=== PATIENT | female | born 1995 | race Caucasian/White ===

== ENCOUNTER 2018-07-29 22:08 | Emergency (ER) | payer MEDICAID, SELFPAY ==
[2018-07-29 22:09] VITALS: BP 148/93; PULSE 108; RESP 18; TEMP 36.7; O2SAT 98; BMI 32.6
--- NOTE | 2018-07-29 22:25 | ED.VISSUMM ---
- ER Visit Summary Date of Service: 07/29/18 Chief Complaint: Sore throat History of Present Illness: The patient is a 23 F with a sore throat for 2 weeks. It has been getting worse. Patient also reports a cough and decreased sleep because of her symptoms. No shortness of breath. No fevers. No sputum. No trouble moving her neck. Physical Examination: Afebrile and vital signs are unremarkable. Patient has a hoarse voice. HEENT exam unremarkable except for some bilateral tonsillar exudates. No masses. Good range of motion of her neck. Airway intact. Lungs clear. Heart regular. Test Results: None indicated Emergency Department Course and Treatment: Given the duration of her symptoms, she was treated with a course of Pen-Vee K, prednisone, naproxen. Follow-up with primary care or return for new or worsening issues. Treatment Plan: As above Disposition: Discharge Impression: 1. Pharyngitis This note was generated with [employer] dictation software. It may contain incorrect words, spelling, and punctuation that were not noted in review of the chart prior to signing ED Disposition - Plan for ED Patient: Referrals: Care Physician,No Primary [Primary Care Provider] -
--- NOTE | 2018-07-29 22:27 | ED.DEP ---
ED Disposition - Plan for ED Patient: Instructions: ED Pharyngitis Viral Prescriptions: Prednisone 10 mg PO UD #33 tab Naproxen [Naprosyn] 500 mg PO BID #14 tab Penicillin V Potassium 500 mg PO BID #20 tab Referrals: Care Physician,No Primary [Primary Care Provider] -
[2018-07-29] MEDS: Naproxen 500 MG Tablet PO (22:39)
[2018-07-29] MEDS: predniSONE 20 MG Tablet 60 MG PO (22:39)
[2018-07-29] MEDS: Penicillin Vk 250 MG Tablet 500 MG PO (22:39)
== END 2018-07-29 22:41 | disposition home or self-care (01) ==
PROVIDERS: Emergency Provider Emergency Medicine
DX: J02.9 Acute pharyngitis, unspecified (principal); G40.909 Epilepsy, unspecified, not intractable, without status epilepticus; R05 Cough; Z72.0 Tobacco use; Z79.899 Other long term (current) drug therapy
CPT/HCPCS: 99283

== ENCOUNTER 2018-08-19 22:56 | Emergency (ER) | payer MEDICAID, SELFPAY ==
[2018-08-19 22:56] VITALS: BP 146/93; PULSE 96; RESP 17; TEMP 36.2; O2SAT 96; BMI 33.6
--- NOTE | 2018-08-19 23:32 | ED.DCSUM_ITS ---
- ER Visit Summary Date of Service: 08/19/18 Chief Complaint: Dental pain History of Present Illness: The patient is a 23 F with dental pain for days after a filling fell out. The pain is in her right maxillary region. No other issues or complaints. She is planning to follow-up with dental this week. Physical Examination: Afebrile and vital signs unremarkable. Patient has dental caries with possibly a missing dental filling in her right maxilla. No abscess. Gums normal. Airway normal. HEENT exam otherwise normal. Neck unremarkable. Skin normal. Test Results: None performed Emergency Department Course and Treatment: Patient received Haines and Pen-Vee K here. She was treated with naproxen and Pen-Vee K at home. Follow-up with dental. Treatment Plan: As above Disposition: Discharge Impression: 1. Dental pain This note was generated with [employer] dictation software. It may contain incorrect words, spelling, and punctuation that were not noted in review of the chart prior to signing ED Disposition - Plan for ED Patient: Referrals: Care Physician,No Primary [Primary Care Provider] -
--- NOTE | 2018-08-19 23:32 | ED.DEP ---
ED Disposition - Plan for ED Patient: Instructions: ED Tooth Pain Prescriptions: Naproxen [Naprosyn] 500 mg PO BID #14 tab Penicillin V Potassium 500 mg PO 4X/DAY #40 tab
[2018-08-19] MEDS: Penicillin Vk 250 MG Tablet 500 MG PO (23:45)
[2018-08-19] MEDS: HYDROcodone Bitartrate/Apap 5/325 Tablet PO (23:45)
== END 2018-08-19 23:47 | disposition home or self-care (01) ==
LOC: ED 23:40
PROVIDERS: Emergency Provider Emergency Medicine
DX: K08.89 Other specified disorders of teeth and supporting structures (principal); K02.9 Dental caries, unspecified; G40.909 Epilepsy, unspecified, not intractable, without status epilepticus; Z79.899 Other long term (current) drug therapy
CPT/HCPCS: 99284

== ENCOUNTER 2018-10-11 15:32 | Emergency (ER) | payer MEDICAID, SELFPAY ==
[2018-10-11 15:36] VITALS: BP 119/77; PULSE 98; RESP 17; TEMP 36.9; O2SAT 98; BMI 31.4
--- NOTE | 2018-10-11 16:17 | ED.VISSUMM ---
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 such as cysts STD or abnormal bleeding, she is otherwise been in good health Physical Examination: [] Vital signs are within normal range General, no distress resting comfortably HEENT is generally unremarkable The neck is supple no adenopathy Cardiovascular, regular rate and rhythm Lungs, clear bilateral Abdomen, soft nontender, she deferred pelvic exam Extremities, no clubbing cyanosis or edema Neurologic, awake alert answering questions appropriately moving all 4 extremities Test Results: [] Emergency Department Course and Treatment: [] She is in no distress the bleeding is intermittent spotting at this time differentials extensive screening labs were obtained Treatment Plan: [] Patient screening labs hemoglobin, hCG are all negative unremarkable see those reports, discussed all the above with her she is comfortable discharge home she will follow-up with her disposal plant operator that delivered her child if she can identify that person she is referred to Leona OBgylluvia on-call, and return for change in symptoms she is comp with this plan Disposition: [] Impression: [] Vaginal bleeding etiology unclear. This note was generated with [employer] dictation software. It may contain incorrect words, spelling, and punctuation that were not noted in review of the chart prior to signing ED Disposition - Plan for ED Patient: Referrals: Antonio Colindres MD [Primary Care Provider] -
[2018-10-11 17:03] LABS: Absolute Lymphocyte Count 2.34 X10^3/ul (0.83-4.51); Absolute Neutrophil Count 3.4 X10^3/uL (2.0-7.7); Basophil# 0.02 X10^3/uL; Basophil% 0.3 % (0-1); Eosinophil# 0.13 X10^3/uL; Eosinophils% 2.1 % (0-5); Hemoglobin 13.1 g/dl (12.0-15.0); Lymphocyte # 2.34 X10^3/ul (4.0); Lymphocyte % 37.8 % (19-41); Mean Corp Hgb Conc 33.6 g/gl (32-36); Mean Corpuscular Hgb 30.6 pg (27.0-32.0); Mean Corpuscular Volume 91.1 fL (81-99); Mean Platelet Vol. 12.1 fl (6.2-12.0); Monocyte# 0.32 X10^3/uL; Monocyte% 5.2 % (0-10); Neutrophil # 3.37 X10^3/uL (2.7-7.7); Neutrophil % 54.4 % (47-70); POSITIVE COUNT NO; POSITIVE DIFFERENTIAL NO; POSITIVE MORPHOLOGY NO; Platelet Count 197 K/mm3 (150-450); RBC Distribution Width CV 13.7 % (11.6-14.6); RBC Distribution Width SD 45.9 fl (35.1-43.9); Red Blood Count 4.28 M/mm3 (4.2-5.4); White Blood Count 6.2 K/mm3 (4.4-11.0)
[2018-10-11 17:53] LABS: Internal QC Validated? YES +Cl - CLEAR BKGD; Pregnancy, Serum, hCG Quali. NEGATIVE Negative
--- NOTE | 2018-10-11 18:15 | ED.DEP ---
ED Disposition - Plan for ED Patient: Instructions: ED Bleed Irregular Vaginal Referrals: Antonio Colindres MD [Primary Care Provider] - Son Trent MD [STAFF PHYSICIAN] -
[2018-10-11 19:27] VITALS: PULSE 98; RESP 18; O2SAT 98
== END 2018-10-11 19:28 | disposition home or self-care (01) ==
LOC: ED 16:30
PROVIDERS: Emergency Provider Emergency Medicine; Family Provider Family Medicine; PCP Family Medicine
DX: N93.9 Abnormal uterine and vaginal bleeding, unspecified (principal); Z79.899 Other long term (current) drug therapy
CPT/HCPCS: 84703; 85025; 86900; 86901; 99283; A4216

== ENCOUNTER 2018-10-30 18:54 | Emergency (ER) | payer MEDICAID, SELFPAY ==
[2018-10-30 18:56] VITALS: BP 122/83; PULSE 110; RESP 16; TEMP 36.7; O2SAT 98; BMI 31.0
--- NOTE | 2018-10-30 19:02 | ED.RN ---
pt fatigued but oriented upon ed arrival. reports missed one dose medication yesterday, none today. no recent changes in medications, denies recent illness or sx. denies changes in sleep or less than normal. s/o estimating times of seizure to be about 5 minutes.
--- NOTE | 2018-10-30 19:08 | CT_ITS ---
STUDY: CT BRAIN WITHOUT CONTRAST REASON FOR EXAM: Female, 23 years old. Headache 5 minutes after seizure with associated fall. RADIATION DOSAGE (If Supplied By Facility): CTDIvol = ( 44.99 ) mGy, DLP = ( 812.98 ) mGycm TECHNIQUE: Transaxial CT imaging of the brain was performed without administration of intravenous contrast material. Multiplanar reformations are submitted for interpretation. Individualized dose optimization techniques were used for this CT. COMPARISON: CT of the head dated September 24, 2010. FINDINGS: Normal soft tissue structures. Normal calvarium. Normal size ventricles and extra-axial spaces for the patient's age. Normal white matter tracts of the cerebral hemispheres. Normal basal ganglia and thalami. Normal brainstem. Normal cerebellum. There is no intracranial hemorrhage. There are no findings of an acute ischemic infarction. Normal visualized paranasal sinuses. CT/Brain/Head without Contrast IMPRESSION: No CT evidence of acute intracranial hemorrhage. Electronically Signed: Nina Simpson MD at 19:54 EDT , Service support ,
--- NOTE | 2018-10-30 19:39 | ED.VISSUMM ---
- ER Visit Summary Date of Service: 10/30/18 Chief Complaint: Seizure History of Present Illness: The patient is a 23 F with a history of seizure. She had a seizure episode prior to arrival. Patient fell forward and had full body shaking. She was helped to the ground and did not sustain any injuries. This lasted about 5 minutes. She was confused afterwards upon EMS arrival. Patient has not had any treatment since the seizure. She said she is compliant with her medications today although she did miss a dose yesterday. Complains of a headache but denies any other symptoms. Physical Examination: Afebrile and vital signs unremarkable except for heart rate of 110. Patient is alert and oriented. No acute distress. Head and neck atraumatic. Heart tachycardic but regular. Lungs clear. Abdomen soft. Moves all extremities. Cranial nerves grossly intact. Test Results: Labs and imaging pending. Emergency Department Course and Treatment: Patient had seizure precautions and was monitored. Because of her headache and fall, I did obtain a CT. Results are pending. I also checked a Depakote level and some basic labs while we observe her. Patient said that she did not want blood work. She wants to leave. She has a follow-up appointment established already and has some personal obligations tonight. I advised her that she may leave, but she has not been completely evaluated. She voiced understanding. I believe she is capable of making this decision. She was advised to return if she has second thoughts or any other issues. Treatment Plan: As above Disposition: AMA Impression: 1. Seizure This note was generated with [employer] dictation software. It may contain incorrect words, spelling, and punctuation that were not noted in review of the chart prior to signing ED Disposition - Plan for ED Patient: Referrals: Antonio Colindres MD [Primary Care Provider] -
--- NOTE | 2018-10-30 19:41 | ED.DEP ---
ED Disposition - Plan for ED Patient: Instructions: ED Seizure Recurrent Referrals: Antonio Colindres MD [Primary Care Provider] -
--- NOTE | 2018-10-30 19:47 | ED.RN ---
PATIENT REFUSED LAB WORK TO BE DONE. PATIENT STATES I'M GETTING LAB WORK DONE TOMORROW AND HAVE AN APPOINTMENT NEXT WEEK WITH NEUROLOGIST. I NEED TO LEAVE, MY RIDE IS HERE. DR. REDDY NOTIFIED.
[2018-10-30 19:50] VITALS: BP 121/81; PULSE 104; RESP 18; O2SAT 96
== END 2018-10-30 19:51 | disposition left against medical advice (07) ==
PROVIDERS: Emergency Provider Emergency Medicine; Family Provider Family Medicine; PCP Family Medicine
DX: G40.909 Epilepsy, unspecified, not intractable, without status epilepticus (principal); Z72.0 Tobacco use; Z79.899 Other long term (current) drug therapy
CPT/HCPCS: 70450; 99285; A4216

== ENCOUNTER 2018-11-18 13:08 | Emergency (ER) | payer MEDICAID, SELFPAY ==
[2018-11-18 13:09] VITALS: BP 121/99; PULSE 111; RESP 16; TEMP 36.8; O2SAT 97; BMI 33.1
--- NOTE | 2018-11-18 13:14 | ED.RN ---
PT DEPAKOTE WAS FILLED 10/29/18. TAKES 3 A DAY. SHOULD HAVE APPX 30 PILLS LEFT IN BOTTLE HAS 37. PROBABLE MISSED DOSES. ZONEGRAN FILLED 10/30/18. TAKES 2 DAY. SHOULD HAVE AXX 20 PILLS REMAINING. HAS 33 LEFT INI BOTTLE. PROBABLE MISSED DOSES. PT STATES SHE GETS MEDICINE FILLED USUALLY WITH ABOUT ONE DAY LEFT IN PREVIOUS BOTTLE.
--- NOTE | 2018-11-18 13:59 | ED.RN ---
registration in to see pt. pt not in rom earched unit. not present. med bottles and belongings gone as well. left prior to dc instructions.
--- NOTE | 2018-11-18 13:59 | ED.VIS.GEN ---
History of Present Illness Chief Complaint: Seizure Informant: Patient Onset: Today Context: Sudden Onset Timing: Intermittent Quality: Generalized seizure Location: home Current Severity: Mild Maximum Severity: Moderate Worsened by: Noncompliance with medication Relieved by: Nothing Associated Symptoms: Headache Narrative: Patient is a 23-year-old woman with known history of seizures. She presents after generalized tonic-clonic seizure. She was brought to the emergency room by squad. She states she is compliant with medication. Nurse counted her medicines and she has 13 to many pills and one vial and 7 and another. Patient became defensive. 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 Past Medical History - Allergies and Home Meds Allergies/Adverse Reactions: Allergies No Known Allergies Allergy (Verified 10/30/18 18:56) Primary Care Physician: Antonio Colindres MD [Primary Care Provider] - Prior records reviewed: Yes Lives: With Family Smoking Status: Current every day smoker Drugs: None Review of Systems General: Denies: Chills, Fever, Sweats Eyes: Denies: Visual changes - bilaterally, Blurred Vision - bilaterally, Diplopia ENT: Denies: Bilateral ear pain, Rhinorrhea, Sore throat Cardiovascular: Denies: Chest pain, Palpitations Respiratory: Denies: Dyspnea, Cough, Dyspnea on exertion Gastrointestinal: Denies: Abdominal pain, Nausea, Vomiting, Diarrhea, Melena, Hematochezia Genitourinary: Denies: Dysuria, Hematuria, Frequency Musculoskeletal: Denies: Back pain, Extremity Pain Skin: Denies: Rash, Wounds Neurological: Reports: Headache. Denies: Weakness, Parasthesia, Numbness, -, - Psych: Reports: Depression Physical Exam Vital Signs/Narrative: Vital Signs Temp Pulse Resp BP Pulse Ox 11/18/18 13:09 98.2 F 111 H 16 121/99 H 97 Inital Vital Signs reviewed: Yes General: Well nourished, Well developed, No Acute Distress Head: Normocephalic, Atraumatic Eyes: Perrl, EOMI ENT: Moist mucous membranes, No rhinorrhea, TM's clear Neck: Supple, Nontender Cardiovascular: Regular rate, Regular rhythm, No murmurs, Normal S1, Normal S2 Respiratory: No distress, CTA bilaterally, Chest nontender Abdomen: Soft, Nontender, Nondistended, Normal bowel sounds Back: Nontender, Normal Inspection Extremities: Nontender, No edema Skin: Normal color, No rash, No Trauma. Negative for: Cyanosis, Diaphoresis, Jaundice Neurological: Alert, Oriented x3, Cranial nerves II-XII grossly intact, Normal Strength, Normal Sensation, Normal DTR, Normal Gait Psychological: Normal affect, Normal Mood Diagnostic/Tx/Re-eval No tests were obtained - Medical Decision Making Patient presents with seizure. Based on pill counts she is noncompliant with the medication. Plan is to observe. I was informed at 1400 that patient left without her discharge paperwork. ED Disposition - Plan for ED Patient: Disposition: Home or Assisted Living Diagnosis: Tonic-clonic generalized seizure Instructions: ED Seizure Recurrent Referrals: Antonio Colindres MD [Primary Care Provider] -
== END 2018-11-18 13:59 | disposition home or self-care (01) ==
LOC: ED 13:55
PROVIDERS: Emergency Provider Emergency Medicine; Family Provider Family Medicine; PCP Family Medicine
DX: G40.409 Other generalized epilepsy and epileptic syndromes, not intractable, without status epilepticus (principal); Z91.14 Patient's other noncompliance with medication regimen; F32.9 Major depressive disorder, single episode, unspecified; F17.200 Nicotine dependence, unspecified, uncomplicated; Z79.899 Other long term (current) drug therapy
CPT/HCPCS: 99284

== ENCOUNTER 2019-03-06 12:12 | Emergency (ER) | payer MEDICAID, SELFPAY ==
[2019-03-06 12:13] VITALS: BP 156/91; PULSE 120; RESP 18; TEMP 37.2; O2SAT 100; BMI 34.7
[2019-03-06 12:16] VITALS: BP 156/91; PULSE 123
[2019-03-06] MEDS: 0.9% Normal Saline 1,000 ML 150 ML IV (12:49)
[2019-03-06] MEDS: LORazepam 2 MG/ML Syringe 1 MG IV (12:50)
[2019-03-06 12:53] LABS: Absolute Lymphocyte Count 2.52 X10^3/uL (0.83-4.51); Absolute Neutrophil Count 7.6 X10^3/uL (2.0-7.7); Basophil# 0.04 X10^3/uL; Basophil% 0.4 % (0-1); Eosinophils% 0.9 % (0-5); Hematocrit 42.5 % (37-47); Hemoglobin 13.9 g/dL (12.0-15.0); Lymphocyte # 2.52 X10^3/ul (4.0); Lymphocyte % 22.2 % (19-41); Mean Corp Hgb Conc 32.7 g/dL (32-36); Mean Corpuscular Hgb 31.2 pg (27.0-32.0); Mean Corpuscular Volume 95.5 fL (81-99); Mean Platelet Vol. 11.6 fl (6.2-12.0); Monocyte# 0.92 X10^3/uL; Monocyte% 8.1 % (0-10); NRBC Flagged by Analyzer 0 % (0-5); Neutrophil # 7.63 X10^3/uL (2.7-7.7); Neutrophil % 67.3 % (47-70); Platelet Count 228 K/mm3 (150-450); RBC Distribution Width CV 13.6 % (11.6-14.6); RBC Distribution Width SD 47.8 fl (35.1-43.9); Red Blood Count 4.45 M/mm3 (4.2-5.4); White Blood Count 11.3 K/mm3 (4.4-11.0)
[2019-03-06 13:04] LABS: Anion Gap 10 (5-15); BUN 9 mg/dL (7-18); BUN/Creat Ratio 12.8 RATIO (10-20); Calcium,Total 8.5 mg/dL (8.5-10.1); Chloride 108 mmol/L (98-107); EST Glomerular Filtration Rate 107 mL/min (>60); Est Glom Filt Rate - Afr Amer 130 mL/min (>60); Estimated Creatinine Clearance 123.93 ml/min; Glucose 75 mg/dL (74-106); Potassium 3.5 mmol/L (3.5-5.1); Sodium Level 141 mmol/L (136-145)
[2019-03-06 13:15] LABS: Internal QC Validated? YES +Cl - CLEAR BKGD; Pregnancy, Serum, hCG Quali. NEGATIVE Negative
[2019-03-06 13:21] LABS: Valproic Acid (Depakene) Level 84 ug/mL (50-100)
[2019-03-06 14:10] LABS: Bacteria 0 SEEN /hpf (None Seen); Mucous, Urine 0 SEEN /hpf (<or=2+); Red Blood Cells-Urine 0 SEEN /hpf (0-5); White Blood Cells 0 SEEN /hpf (0-5)
[2019-03-06 14:13] LABS: Color, Urine Yellow (Yellow); Glucose, Dipstick Normal (Normal); Ketone-Dipstick 15 mg/dl (Negative); Leukocyte Esterase-Dipstick 100 /ul (Negative); Nitrite-Dipstick Negative (Negative); Occult Blood-Urine Negative /ul (Negative); Protein-Dipstick 15 mg/dl (Negative); Urine Bilirubin Dipstick Negative (Negative); Urine Clarity Clear (Clear); Urine Urobilinogen Normal (Normal)
[2019-03-06 14:21] VITALS: BP 142/93; PULSE 112; O2SAT 99
[2019-03-06 14:24] LABS: Squamous Epithelial Cells - UA 0-5 SEEN /hpf (5-10)
--- NOTE | 2019-03-06 14:57 | ED.DCSUM_ITS ---
- ER Visit Summary Date of Service: 03/06/19 Chief Complaint: [Seizure] History of Present Illness: The patient is a 23 F [resents to the emergency department after having a seizure while at [facility]. Patient remembers going there to shop but then has no recollection of anything after that. Patient does have a history of seizures and her last was about 2 months ago. Patient takes Depakote which she has been compliant with although she states that she is also supposed to be taking zonisamide however she ran out 2 days ago and does have a prescription of it waiting at the pharmacy for her. Patient denies recent illness. She denies any head injuries. She is unsure of her last menstrual period and is not sure if she is . Patient does have history of epilepsy. She did bite her tongue although she denies swelling her hands with urine or stool.] Physical Examination: [HEENT-PERRLA, EOMI. Cranial nerves II through XII grossly intact. TMs clear. Mucous membranes moist. No adenopathy. She does have bite wounds to the left side of the tongue and the tip of the tongue. Cardiovascular-regular rate and rhythm without murmur or ectopy Lungs-clear to auscultation, chest wall stable without crepitus or subcu emphysema Abdomen-normoactive bowel sounds, soft, nontender, no rebound or rigidity, no peritoneal signs. Neuro [id number] and heel cutler testing within normal limits, negative Romberg, negative , Fundi benign. Extremities-intact ?4, normal range of motion, normal pulses, atraumatic] Test Results: [CBC with differential showed a slightly elevated white count of 11.3, hemoglobin 14, hematocrit 42, placed 228. Chemistries unremarkable. Urinalysis was normal. hCG was negative. 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 Patient advised to follow-up with her neurologist within next 3 to 5 days.] Disposition: [Discharged home in stable condition] Impression: [Recurrent seizure] This note was generated with [employer] software. It may contain incorrect words, spelling, and punctuation that were not noted in review of the chart prior to signing ED Disposition - Plan for ED Patient: Referrals: Antonio Colindres MD [Primary Care Provider] -
--- NOTE | 2019-03-06 14:59 | ED.DEP ---
ED Disposition - Plan for ED Patient: Instructions: SEIZURE, Recurrent [Adult] Referrals: Antonio Colindres MD [Primary Care Provider] - Additional Instructions: see your neurologist in 3-4 days
[2019-03-06 15:15] VITALS: BP 138/87; PULSE 104; RESP 18; O2SAT 96
--- NOTE | 2019-03-06 15:15 | ED.RN ---
PT GIVEN WRITTEN AND VERBAL DISCHARGE INSTRUCTIONS AND HOME GOING INSTRUCTIONS. PT VERBALIZES UNDERSTANDING AND DENIES ANY FURTHER QUESTIONS. EDUCATED NOT TO DRIVE WHEN HAVING SEIZURES AND NOT TO DRIVE FOR 6 HOURS AFTER HAVING ATIVAN. PT REPORTS SHE IS TEXTING A FRIEND TO FIND A RIDE HOME. IV D/C AND COVERED WITH 2X2 GAUZE AND PAPER TAPE. PT DRESSES SELF.
== END 2019-03-06 15:25 | disposition home or self-care (01) ==
PROVIDERS: Emergency Provider Emergency Medicine; Family Provider Family Medicine; PCP Family Medicine
DX: G40.909 Epilepsy, unspecified, not intractable, without status epilepticus (principal); S01.552A Open bite of oral cavity, initial encounter; X58.XXXA Exposure to other specified factors, initial encounter; Y93.9 Activity, unspecified; Y92.512 Supermarket, store or market as the place of occurrence of the external cause; Y99.9 Unspecified external cause status; Z72.0 Tobacco use; Z79.899 Other long term (current) drug therapy
CPT/HCPCS: 80048; 80164; 81001; 84703; 85025; 96361; 96374; 99285; J7030; A4216

== ENCOUNTER 2019-11-06 23:44 | Emergency (ER) | payer MEDICAID, SELFPAY ==
[2019-11-06 23:45] VITALS: BP 140/87; PULSE 100; RESP 16; TEMP 36.8; O2SAT 100; BMI 30.4
--- NOTE | 2019-11-06 23:58 | ED.VIS.DENTA ---
History of Present Illness Chief Complaint: Dental Onset: Weeks - several Context: Gradual Onset Timing: Continuous Quality: sore/ache Location: left maxillary teeth Current Severity: Severe Maximum Severity: Severe Worsened by: eating Associated Symptoms: - - Fever, jaw swelling, discharge currently Narrative: Patient states she has multiple painful teeth in the left maxillary row, fillings that have come out the past, she fell and broke 1, that was remote. They have been hurting for weeks, without swelling but she has had some abscesses form on the gingiva that she is popping and draining her self. She saw a dentist today, got put on prescription NSAID and antibiotics. She states they are not helping the pain and often she is asking for something more. - Past Medical History (1) Seizure disorder Status: Chronic Past Medical History - Allergies and Home Meds Allergies/Adverse Reactions: Allergies No Known Allergies Allergy (Verified 11/06/19 23:48) Primary Care Physician: Antonio Colindres MD [Primary Care Provider] - Smoking Status: Current every day smoker Review of Systems General: Denies: Chills, Fever, Sweats ENT: Reports: - - Dental pain. Denies: Bilateral ear pain, Rhinorrhea Skin: Denies: Rash, Wounds Physical Exam Vital Signs/Narrative: Vital Signs Temp Pulse Resp BP Pulse Ox 11/06/19 23:45 98.3 F 100 16 140/87 H 100 Inital Vital Signs reviewed: Yes General: Well nourished, Well developed, Obese, - - No acute distress. Conversive in full sentences without any apparent difficulty. Head: Normocephalic, Atraumatic ENT: No rhinorrhea Mouth/Throat: Normal oral mucosa, Normal posterior oropharynx, Normal Stensen's duct, Tenderness on tooth percussion - Several left maxillary teeth. Negative for: Dental abscess, Focal gum swelling - Mild tenderness left maxillary gingiva, possibly residual from recent abscess, Trismus Neck: Supple, No lymphadenopathy, Nontender Skin: Normal color, No rash, No Trauma Neurological: Alert, Oriented x3, Cranial nerves II-XII grossly intact, Normal Strength, Normal Sensation Psychological: Normal affect, Normal Mood Diagnostic/Tx/Re-eval - Medical Decision Making Ran her oarrs report. No narcotics x2 years. Given tramadol, prescribed it, and placed a small amount of Cetacaine spray on the affected gingiva. ED Disposition - Plan for ED Patient: Disposition: Home or Assisted Living Diagnosis: Dental caries, Odontalgia Instructions: Dental Abscess Prescriptions: traMADol [Ultram] 50 mg PO Q4H PRN PRN 3 Days #15 tab PRN Reason: Pain Prescription Printed Referrals: Antonio Colindres MD [Primary Care Provider] - Dentist,Your [STAFF PHYSICIAN] - 1 Week if not improving
[2019-11-07] MEDS: traMADol 50 MG Tablet PO (00:02)
== END 2019-11-07 00:14 | disposition home or self-care (01) ==
PROVIDERS: Emergency Provider Emergency Medicine; PCP Family Medicine
DX: K02.9 Dental caries, unspecified (principal); G40.909 Epilepsy, unspecified, not intractable, without status epilepticus; F17.200 Nicotine dependence, unspecified, uncomplicated; Z79.899 Other long term (current) drug therapy
CPT/HCPCS: 99283

== ENCOUNTER 2019-11-29 02:37 | Emergency (ER) | payer MEDICAID, SELFPAY ==
[2019-11-29 02:38] VITALS: BP 146/92; PULSE 105; RESP 16; TEMP 36.4; O2SAT 96; BMI 33.4
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
[2019-11-29 03:07] LABS: Bacteria 0 SEEN /hpf (None Seen); Mucous, Urine 0 SEEN /hpf (<or=2+); Red Blood Cells-Urine 0 SEEN /hpf (0-5); White Blood Cells 0 SEEN /hpf (0-5)
[2019-11-29 03:09] LABS: Absolute Lymphocyte Count 2.81 X10^3/uL (0.83-4.51); Basophil# 0.05 X10^3/uL; Basophil% 0.5 % (0-1); Eosinophil# 0.36 X10^3/uL; Eosinophils% 3.5 % (0-5); Hematocrit 37.9 % (37-47); Hemoglobin 12.7 g/dL (12.0-15.0); Lymphocyte # 2.81 X10^3/ul (4.0); Lymphocyte % 27.2 % (19-41); Mean Corp Hgb Conc 33.5 g/dL (32-36); Mean Corpuscular Hgb 31.2 pg (27.0-32.0); Mean Corpuscular Volume 93.1 fL (81-99); Mean Platelet Vol. 11.5 fl (6.2-12.0); Monocyte# 1.07 X10^3/uL; Monocyte% 10.4 % (0-10); NRBC Flagged by Analyzer 0 % (0-5); Neutrophil # 5.98 X10^3/uL (2.7-7.7); Neutrophil % 57.9 % (47-70); Platelet Count 236 K/mm3 (150-450); RBC Distribution Width CV 12.6 % (11.6-14.6); RBC Distribution Width SD 43.1 fl (35.1-43.9); Red Blood Count 4.07 M/mm3 (4.2-5.4); White Blood Count 10.3 K/mm3 (4.4-11.0)
[2019-11-29 03:13] LABS: Color, Urine Yellow (Yellow); Glucose, Dipstick Normal (Normal); Ketone-Dipstick Negative (Negative); Leukocyte Esterase-Dipstick Negative /ul (Negative); Nitrite-Dipstick Negative (Negative); Occult Blood-Urine Negative /ul (Negative); Protein-Dipstick Negative (Negative); Urine Bilirubin Dipstick Negative (Negative); Urine Clarity Clear (Clear); Urine Urobilinogen Normal (Normal)
[2019-11-29 03:21] LABS: Anion Gap 9 (5-15); BUN 13 mg/dL (7-18); BUN/Creat Ratio 24.5 RATIO (10-20); Calcium,Total 8.6 mg/dL (8.5-10.1); Chloride 107 mmol/L (98-107); Creatinine, Serum 0.53 mg/dL (0.55-1.02); EST Glomerular Filtration Rate 147 mL/min (>60); Est Glom Filt Rate - Afr Amer 178 mL/min (>60); Estimated Creatinine Clearance 162.26 ml/min; Glucose 104 mg/dL (74-106); Potassium 3.9 mmol/L (3.5-5.1); Sodium Level 140 mmol/L (136-145)
[2019-11-29 03:33] LABS: Squamous Epithelial Cells - UA 0-5 SEEN /hpf (5-10)
[2019-11-29 03:46] VITALS: RESP 16
== END 2019-11-29 03:46 | disposition home or self-care (01) ==
PROVIDERS: Emergency Provider Emergency Medicine; PCP Family Medicine
DX: R60.0 Localized edema (principal); G40.409 Other generalized epilepsy and epileptic syndromes, not intractable, without status epilepticus; Z79.899 Other long term (current) drug therapy; F17.200 Nicotine dependence, unspecified, uncomplicated
CPT/HCPCS: 80048; 81001; 85025; 99282

== ENCOUNTER 2021-06-13 23:37 | Emergency (ER) | payer MEDICAID, SELFPAY ==
[2021-06-13 23:39] VITALS: BP 93/69; PULSE 122; RESP 18; TEMP 36.7; O2SAT 99; BMI 38.4
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
[2021-06-13] MEDS: Ondansetron ODT 4 MG Tablet 8 MG PO (23:59)
[2021-06-14 00:05] VITALS: RESP 18
[2021-06-14] MEDS: Divalproex Sodium 250 MG Tablet 1000 MG PO ×2 (00:11→00:49)
[2021-06-14 00:34] LABS: Valproic Acid (Depakene) Level 6 ug/mL (50-100)
[2021-06-14] MEDS: Ibuprofen 600 MG Tablet PO (00:49)
[2021-06-14 00:53] VITALS: PULSE 89; RESP 18; O2SAT 95
== END 2021-06-14 00:53 | disposition home or self-care (01) ==
PROVIDERS: Emergency Provider Emergency Medicine; PCP Family Medicine
DX: G40.909 Epilepsy, unspecified, not intractable, without status epilepticus (principal); F15.10 Other stimulant abuse, uncomplicated; F17.210 Nicotine dependence, cigarettes, uncomplicated; E66.9 Obesity, unspecified
CPT/HCPCS: 36415; 80164; 99285

== ENCOUNTER 2022-01-26 20:40 | Emergency (ER) | payer MEDICAID, SELFPAY ==
[2022-01-26 20:41] VITALS: BP 136/88; PULSE 108; RESP 15; TEMP 36.9; O2SAT 96; BMI 39.2
[2022-01-26 20:44] VITALS: BP 136/88; PULSE 107; RESP 20; O2SAT 96
--- NOTE | 2022-01-26 21:07 | EX.ED.DYSGE1 ---
HPI History of Present Illness Chief Complaint: Seizure Informant: patient and EMS Onset/Context/Timing Onset: Today Narrative Narrative: Patient presents via EMS postictal after having a seizure. She does not remember what happened or how long the seizure may have lasted. She does have a known seizure disorder and takes Depakote as well as zonisamide. She denies any recent changes to her medications and states she did take her medicines today. She states she will have breakthrough seizures once or twice a month. She does not remember when her last seizure was. She does admit to a small amount of alcohol use today but denies any drug use. [facility] Medical History Seizure disorder Smoker Home Medications divalproex 500 mg tablet,delayed release (Depakote) 1,000 mg PO BID 07/01/17 [History Last Taken Unknown] zonisamide 100 mg capsule 100 mg PO DAILY 10/11/18 [History Last Taken Unknown] Allergy/AdvReac Type Severity Reaction Status Date / Time No Known Allergies Allergy Verified 01/26/22 20:41 Surgical History History of appendectomy History of tonsillectomy and adenoidectomy Social History Smoking Status: Current every day smoker tobacco type: cigarettes substance use type: methamphetamine ROS ROS ED Constitutional Constitutional ED: Denies chills or fever(s) Eyes Eyes: Denies change in vision or discharge from eye(s) ENT ENT ED: Reports other Details: Tongue bite injury ; Denies discharge from eye(s), rhinorrhea or sore throat Cardiovascular Cardiovascular: Denies chest pain or palpitations Respiratory/Chest Respiratory/Chest: Denies cough or dyspnea Gastrointestinal Gastrointestinal: Denies abdominal pain, diarrhea, nausea or vomiting Genitourinary Genitourinary ED: Denies difficulty urinating or dysuria Musculoskeletal Musculoskeletal: Denies back pain or extremity pain Integumentary Denies Abrasions or rash Neurologic Neurologic: Denies headache(s) or weakness Allergic/Immunologic Allergic/Immunologic ED: Denies lip swelling or urticaria EXAM Physical Exam Const Vital Signs: 01/26/22 20:41 01/26/22 20:44 Temperature 98.4 F Temperature Source Oral Pulse Rate 108 H 107 H Respiratory Rate 15 20 H Blood Pressure 136/88 H 136/88 H Blood Pressure Mean 104 104 Pulse Ox 96 96 Oxygen Delivery Method Room Air Room Air Positive well nourished and well developed General Appearance ED: well developed HEENT Reports normocephalic and head/scalp atraumatic HEENT Narrative: Small bite injury to the left side of the tongue Eyes PERRL and EOMs intact bilaterally Neck supple Chest Wall inspection of chest normal and palpation of chest normal Resp normal respiratory effort and clear to auscultation bilaterally Cardio regular rate and regular rhythm GI normal to inspection, nondistended, normoactive bowel sounds Palpation: soft Back/Spine no CVA tenderness Extremity normal to inspection Neuro oriented x3 and no sensory deficits noted Sensorium / Orientation: alert Motor Exam: strength 5/5 throughout Psych mental status grossly normal Skin no rashes or lesions noted MDM MDM MDM Narrative Medical decision making narrative: Initial plan was to check electrolytes and give her a small dose of Ativan. When nursing staff went to start her IV she refused the IV state that she was ready as soon as she had a ride to show up. She is alert and oriented at this point. She has had multiple seizures and there is no findings on exam at this time that has been concerned that this is atypical of her seizure disorder. Addendum: I was notified by nursing staff that when they went back to check on the patient she was not in the room. They found her sitting in the triage area. She agrees to sign AMA paperwork. Discharge Plan Triage Chief Complaint: Seizure ED Provider: Whit Vanessa Dx/Rx/DC Orders Clinical Impression: Seizure Instructions: ED Seizure, Recurrent (Adult) Prescriptions: No Action divalproex [Depakote] 500 MG tablet,delayed release (DR/EC) 1,000 mg PO BID Rx Instructions: 1 in am. 2 in hs zonisamide 100 MG capsule 100 mg PO DAILY Primary Care Provider: Antonio Colindres Referrals: Antonio Colindres MD [Primary Care Provider] - Disposition Disposition: Home, Self Care
== END 2022-01-26 21:24 | disposition left against medical advice (07) ==
PROVIDERS: Emergency Provider Emergency Medicine; PCP Family Medicine; Visit Provider Emergency Medicine
DX: G40.909 Epilepsy, unspecified, not intractable, without status epilepticus (principal); F17.210 Nicotine dependence, cigarettes, uncomplicated
CPT/HCPCS: 99283

== ENCOUNTER 2022-08-19 16:52 | Emergency (ER) | payer MEDICAID, SELFPAY ==
[2022-08-19 16:53] VITALS: BP 109/63; PULSE 126; RESP 16; TEMP 36.6
[2022-08-19 17:26] VITALS: BMI 38.2
[2022-08-19 17:50] LABS: Bedside Glucose 109 mg/dL (74-106)
--- NOTE | 2022-08-19 18:00 | ED.RN ---
PT WAS SEEN BY ANCILLARY STAFF WALKING OUT OF DEPT DRESSED IN STREET CLOTHES. PATIENT GOWN FOUND ON FLOOR IN ROOM AND IV REMOVED PRESUMABLY BY PT HERSELF. PRESUMED ELOPED.
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
== END 2022-08-19 19:59 | disposition left against medical advice (07) ==
PROVIDERS: Emergency Provider Student in an Organized Health Care Education/Training Program; PCP Family Medicine; Visit Provider Student in an Organized Health Care Education/Training Program
DX: R56.9 Unspecified convulsions (principal); F17.210 Nicotine dependence, cigarettes, uncomplicated; R51.9 Headache, unspecified; J45.909 Unspecified asthma, uncomplicated; Z86.69 Personal history of other diseases of the nervous system and sense organs
CPT/HCPCS: 82962; 99282

== ENCOUNTER 2025-03-17 12:50 | Emergency (ER) | payer MEDICAID, SELFPAY ==
[2025-03-17 12:50] VITALS: BP 131/84; PULSE 80; RESP 16; TEMP 36.8; O2SAT 100; BMI 33.9
--- NOTE | 2025-03-17 12:54 | RAD_ITS ---
PROCEDURE: HAND MIN 3 VIEWS 03/17/2025 REASON FOR EXAM: SWELLING DEFORMITY TECHNIQUE: Procedure Code: LINDA Modality: DX Procedure: HAND MIN 3 VIEWS Laterality: Left COMPARISON: None FINDINGS: Bones: Oblique fracture of the base of the 2nd metacarpal bone with slight displacement. Transverse fracture distal radius. Joints: Preserved. Soft tissues: Soft tissue edema. Other: RAD/Hand Min 3 Views IMPRESSION: Acute fracture at the base of the 2nd metacarpal bone and transverse fracture d istal radius. Reading Location: [place] [id number]
--- NOTE | 2025-03-17 12:54 | RAD_ITS ---
PROCEDURE: WRIST MIN 3 VIEWS 03/17/2025 REASON FOR EXAM: SWELLING DEFORMITY TECHNIQUE: Procedure Code: RADWR Modality: DX Procedure: WRIST MIN 3 VIEWS Laterality: Left COMPARISON: None FINDINGS: Bones: Comminuted oblique fracture of the base of the 2nd metacarpal bone. Transverse fracture of the distal radius with minimal displacement. Joints: Preserved Soft tissues: Soft tissue edema Other: RAD/Wrist min 3 Views IMPRESSION: Acute oblique fracture at the base of the 2nd metacarpal the. Acute transfers fracture of the distal radius. Reading Location: [place] [id number]
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
[2025-03-17] MEDS: HYDROcodone Bitartrate/Apap 5/325 Tablet PO (14:23)
[2025-03-17 14:26] VITALS: BP 127/80; PULSE 77; RESP 16; TEMP 36.8; O2SAT 100
== END 2025-03-17 14:27 | disposition home or self-care (01) ==
PROVIDERS: Emergency Provider Emergency Medicine; PCP Family Medicine; Visit Provider Emergency Medicine
DX: S62.311A Displaced fracture of base of second metacarpal bone, left hand, initial encounter for closed fracture (principal); S52.322A Displaced transverse fracture of shaft of left radius, initial encounter for closed fracture; V86.55XA Driver of 3- or 4- wheeled all-terrain vehicle (ATV) injured in nontraffic accident, initial encounter; F17.210 Nicotine dependence, cigarettes, uncomplicated
CPT/HCPCS: 29125; 73110; 73130; 99282

== ENCOUNTER 2025-03-19 16:44 | Emergency (ER) | payer MEDICAID, SELFPAY ==
[2025-03-19 16:46] VITALS: BP 133/87; PULSE 96; RESP 16; TEMP 36.1; O2SAT 97; BMI 37.0
--- NOTE | 2025-03-19 17:27 | RAD_ITS ---
PROCEDURE: LEFT WRIST MIN 3 VIEWS; HAND MIN 3 VIEWS 03/19/2025 REASON FOR EXAM: PAIN, RECENT FRACTURE TECHNIQUE: Procedure Code: RADWR; LINDA Modality: DX Procedure: WRIST MIN 3 VIEWS; HAND MIN 3 VIEWS Laterality: Left COMPARISON: 03/17/2025 FINDINGS: Volar fiberglass splint in place. Redemonstrated nondisplaced comminuted intra- articular fracture of the distal left radial metaphysis. Minimally displaced oblique fracture of the 2nd metacarpal shaft. Unchanged alignment/appearance since prior exam. Mild soft tissue swelling about the wrist. RAD/Wrist min 3 Views IMPRESSION: Unchanged alignment/appearance of the nondisplaced comminuted intra-articular f racture of the distal radial metaphysis, and minimally displaced oblique fracture of 2nd metacarpal shaft. Volar splint in p lace. Reading Location: [id number]
--- NOTE | 2025-03-19 17:27 | RAD_ITS ---
PROCEDURE: LEFT WRIST MIN 3 VIEWS; HAND MIN 3 VIEWS 03/19/2025 REASON FOR EXAM: PAIN, RECENT FRACTURE TECHNIQUE: Procedure Code: RADWR; LINDA Modality: DX Procedure: WRIST MIN 3 VIEWS; HAND MIN 3 VIEWS Laterality: Left COMPARISON: 03/17/2025 FINDINGS: Volar fiberglass splint in place. Redemonstrated nondisplaced comminuted intra- articular fracture of the distal left radial metaphysis. Minimally displaced oblique fracture of the 2nd metacarpal shaft. Unchanged alignment/appearance since prior exam. Mild soft tissue swelling about the wrist. RAD/Hand Min 3 Views IMPRESSION: Unchanged alignment/appearance of the nondisplaced comminuted intra-articular f racture of the distal radial metaphysis, and minimally displaced oblique fracture of 2nd metacarpal shaft. Volar splint in p lace. Reading Location: [id number]
--- NOTE | 2025-03-19 17:27 | EX.ED.UPPERE ---
HPI History of Present Illness Chief Complaint: Upper Extremity Injury Narrative Narrative: Chief complaint and HPI: 29-year-old female with recent left second metacarpal fracture and distal radial fracture presents for evaluation of left wrist pain. Patient was seen in our emergency department on 03/17 in which she was diagnosed with a fractures and placed in a volar splint. She was discharged home on hydrocodone-acetaminophen but states she immediately had itching in which she stopped taking the narcotics. States she has only been taking ibuprofen. States her pain has progressively worsened in her wrist. She was supposed to have an appointment with Dr. Guan today with orthopedics however this was canceled after he reviewed the imaging. Referred her to a specialist at [facility]. Patient states she presents because the pain is not controlled at home. She denies any numbness or tingling. Denies any fever or chills. Review of systems: See HPI Medications: As listed on the chart Allergies: As listed on the chart PFSH: Per chart Vital signs: As listed on the chart. Reviewed. Physical exam: Gen: Alert, no acute distressic Eyes: No sclera icterus, conjunctiva clear ENT: Moist mucous membranes CV: Regular rate Resp: Nonlabored respiration Musc: Left forearm in a volar splint with good capillary refill and sensation intact. Volar splint was removed and patient has ecchymosis to the volar aspect of the left wrist as well as hand corresponding with her fractures, she has mild ecchymosis to the dorsum 2nd, 3rd and 4th fingers. Compartments soft without significant swelling. Radial and ulnar pulse +2. Good capillary refill. Sensation intact. Tender to palpation overlying the fractures. Skin: Warm, dry Neuro: Alert, oriented, grossly intact, sensation intact Psych: Cooperative, appropriate mood and affect [facility] Medical History Smoker Seizure disorder Home Medications ?Medication ?Instructions ?Recorded ?Last Taken ?Type divalproex 500 mg tablet,delayed 1,000 mg PO BID 07/01/17 Unknown History release (Depakote) zonisamide 100 mg capsule 100 mg PO DAILY 10/11/18 Unknown History hydrocodone-acetaminophen 5-325mg 1 tab PO Q6H PRN PRN Pain 3 days 03/17/25 Unknown Rx 5mg-325mg #10 TABLETS oxycodone 5 mg tablet 5 mg PO Q6H PRN pain 3 days #12 03/19/25 Unknown Rx tabs Allergy/AdvReac Type Severity Reaction Status Date / Time acetaminophen (From [place]) Allergy Mild itching Verified 03/19/25 16:45 hydrocodone (From [place]) Allergy Mild itching Verified 03/19/25 16:45 Surgical History History of appendectomy History of tonsillectomy and adenoidectomy Social History household members: children Smoking Status: Current every day smoker tobacco type: cigarettes substance use type: methamphetamine EXAM Physical Exam Const Vital Signs: 03/19/25 16:46 Temperature 97 F L Temperature Source Temporal Pulse Rate 96 Respiratory Rate 16 Blood Pressure 133/87 H Blood Pressure Mean 102 Pulse Ox 97 Oxygen Delivery Method Room Air MDM MDM MDM Narrative Medical decision making narrative: 29-year-old female with recent left second metacarpal fracture and distal radial fracture presents for evaluation of left wrist pain. Patient was seen in our emergency department on 03/17 in which she was diagnosed with a fractures and placed in a volar splint. She was discharged home on hydrocodone-acetaminophen but states she immediately had itching in which she stopped taking the narcotics. States she has only been taking ibuprofen. States her pain has progressively worsened in her wrist. She was supposed to have an appointment with Dr. Guan today with orthopedics however this was canceled after he reviewed the imaging. Referred her to a specialist at [facility]. Patient states she presents because the pain is not controlled at home. She denies any numbness or tingling. See physical exam findings. Exam not consistent with compartment syndrome. Suspect her pain is not controlled secondary to only taking ibuprofen. Patient willing to try IM morphine despite her allergy to hydrocodone. IM morphine and Zofran ordered. Volar splint reapplied. Patient tolerated this well. Neurovascularly intact before and after application. Will repeat x-rays of the hand and wrist. X-rays of the hand and wrist were personally reviewed and interpreted by me, ED physician. Patient has a distal radial fracture as well as oblique fracture of the second metacarpal shaft. Radiology in agreement. Unchanged alignment/appearance. I suspect patient's pain is secondary to her being undertreated given she has not been taking narcotics. She had no rash or itching with morphine. She would like to try oxycodone. This was prescribed. Tylenol and Motrin. Follow-up with lan support specialist. She confirmed understand the plan. Patient able to discharge home. Impression: 1. Left distal radial fracture 2. Left second metacarpal shaft fracture Discharge Plan Triage Chief Complaint: Upper Extremity Injury ED Provider: Les Jerez Dx/Rx/DC Orders Clinical Impression: Left wrist pain Instructions: ED Fracture, Wrist, General Prescriptions: New oxycodone 5 mg tablet 5 mg PO Q6H PRN (Reason: pain) 3 Days Qty: 12 0RF No Action divalproex [Depakote] 500 MG tablet,delayed release (DR/EC) 1,000 mg PO BID Rx Instructions: 1 in am. 2 in hs zonisamide 100 MG capsule 100 mg PO DAILY hydrocodone-acetaminophen 5-325 mg tablet 1 tab PO Q6H PRN PRN (Reason: Pain) 3 Days Qty: 10 0RF Primary Care Provider: Antonio Colindres Referrals: Follow-up with the lan support specialist [Other] - 3-5 Days Antonio Colindres MD [Primary Care Provider, Family Practice] - 3-5 Days Activity Restrictions/Additional Instructions: Follow-up with your lan support specialist. Splint needs to remain on at times. Splint cannot wet. Nonweightbearing to the left upper extremity. You were written for oxycodone, this is similar to hydrocodone. If you develop itching or allergic reaction stop taking. Okay for Tylenol and Motrin with oxycodone. Print Language: Amharic Disposition Disposition: Home, Self Care Discharge Date/Time: 03/19/25 20:18
--- OUTSIDE RECORDS SUMMARY | 2025-03-21 00:02 | XMS RPT_ITS | CCD ---
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 10 8 mmol/L [facility] CO2 [Moles/Vol] 23 mmol/L 21 - 31 mmol/L [facility] Creatinine [Mass/Vol] 0.43 mg/dL Low 0.50 - 1.20 mg/dL [facility] eGFR, CKD-EPI, Female - PINF [facility] Comment on above: Reported eGFR is bas ed on the CKD-EPI 2020 equation using creatinine, age, and sex. Glucose [Mass/Vol] 91 mg/dL 70 - 99 mg/dL [facility] Interpretation and review of laboratory results Abnormal [facility] Osmolality Calc [Osmolality] 291 [facility] Potassium [Moles/Vol] 3.8 mmol/L 3.5 - 5.0 mmol/L [facility] Protein [Mass/Vol] 6.1 g/dL Low 6.4 - 8.3 g/dL [facility] Sodium [Moles/Vol] 140 mmol/L 135 - 145 mmol/L [facility] Urea nitrogen [Mass/Vol] 10 mg/dL 7 - 25 mg/dL [facility] Urea nitrogen/Creatinine [Mass ratio] 23 mg/mg [facility] Albumin [Mass/Vol] 3.7 g/dL 3.5 - 5.0 g/dL [facility] ALP [Catalytic activity/Vol] 30 U/L Low 32 - 126 U/L [facility] ALT [Catalytic activity/Vol] 16 U/L 9 - 48 U/L [facility] Anion gap [Moles/Vol] 16 mmol/L 7 - 17 mmol/L [facility] AST [Catalytic activity/Vol] 15 U/L 10 - 39 U/L [facility] Bilirubin [Mass/Vol] 0.6 mg/dL NINF - 1.5 mg/dL [facility] Calcium [Mass/Vol] 7.6 mg/dL Low 8.6 - 10. 5 mg/dL [facility] Chloride [Moles/Vol] 113 mmol/L High 98 - 10 8 mmol/L [facility] CO2 [Moles/Vol] 22 mmol/L 21 - 31 mmol/L [facility] Creatinine [Mass/Vol] 0.63 mg/dL 0.50 - 1.20 mg/dL [facility] eGFR, CKD-EPI, Female - PINF [facility] Comment on above: Reported eGFR is bas ed on the CKD-EPI 2020 equation using creatinine, age, and sex. Glucose [Mass/Vol] 80 mg/dL 70 - 99 mg/dL [facility] Osmolality Calc [Osmolality] 304 [facility] Potassium [Moles/Vol] 3.1 mmol/L Low 3.5 - 5.0 mmol/L [facility] Protein [Mass/Vol] 6.1 g/dL Low 6.4 - 8.3 g/dL [facility] Sodium [Moles/Vol] 148 mmol/L High 135 - 145 mmol/L [facility] Urea nitrogen [Mass/Vol] 10 mg/dL 7 - 25 mg/dL [facility] Urea nitrogen/Creatinine [Mass ratio] 16 mg/mg [facility] COMPREHENSIVE METABOLIC PANE LOrdered By: Atul Dudley on 10-03-2023 Albumin [Mass/Vol] 3.6 g/dL 3.5 - 5.0 g/dL [facility] ALP [Catalytic activity/Vol] 33 U/L 32 - 126 U/L [facility] ALT [Catalytic activity/Vol] 12 U/L 9 - 48 U/L [facility] Anion gap [Moles/Vol] 12 mmol/L 7 - 17 mmol/L [facility] AST [Catalytic activity/Vol] 13 U/L 10 - 39 U/L [facility] Bilirubin [Mass/Vol] 0.9 mg/dL NINF - 1.5 mg/dL [facility] Calcium [Mass/Vol] 8.1 mg/dL Low 8.6 - 10. 5 mg/dL [facility] Chloride [Moles/Vol] 112 mmol/L High 98 - 10 8 mmol/L [facility] CO2 [Moles/Vol] 22 mmol/L 21 - 31 mmol/L [facility] Creatinine [Mass/Vol] 0.48 mg/dL Low 0.50 - 1.20 mg/dL [facility] eGFR, CKD-EPI, Female - PINF [facility] Comment on above: Reported eGFR is bas ed on the CKD-EPI 2020 equation using creatinine, age, and sex. Glucose [Mass/Vol] 95 mg/dL 70 - 99 mg/dL [facility] Interpretation and review of laboratory results Abnormal [facility] Osmolality Calc [Osmolality] 295 [facility] Potassium [Moles/Vol] 3.9 mmol/L 3.5 - 5.0 mmol/L [facility] Protein [Mass/Vol] 6.2 g/dL Low 6.4 - 8.3 g/dL [facility] Sodium [Moles/Vol] 142 mmol/L 135 - 145 mmol/L [facility] Comment on above: Results inconsistent with previous results Urea nitrogen [Mass/Vol] 11 mg/dL 7 - 25 mg/dL [facility] Urea nitrogen/Creatinine [Mass ratio] 23 mg/mg [facility] EXTRA MICROon 10-03-2023 [facility] GLUCOSE POCon 10-03-2023 Glucose [Mass/Vol] 123 mg/dL High 70 - 99 mg/dL [facility] Interpretation and review of laboratory results Abnormal [facility] POC Sample Type CAPBL [facility] Test performed at ad dress of the patient encounter. [facility] Glucose [Mass/Vol] 105 mg/dL High 70 - 99 mg/dL [facility] Glucose [Mass/Vol] 110 mg/dL High 70 - 99 mg/dL [facility] MAGNESIUMon 10-03-2023 Magnesium [Mass/Vol] 1.8 mg/dL 1.6 - 2 .6 mg/dL [facility] No Panel Informationon 10-02 [facility] Interpretation and review of laboratory results Normal [facility] Interpretation and review of laboratory results Abnormal [facility] Interpretation and review of laboratory results Abnormal [facility] POC Sample Type CAPBL [facility] Test performed at ad dress of the patient encounter. [facility] No Panel InformationOrdered By: Margot Gray on 10-03-2023 Interpretation and review of laboratory results Normal [facility] PHOSPHATE, INORGANICon 10-02 Phosphate [Mass/Vol] 4.5 mg/dL 2.2 - 4 .6 mg/dL [facility] TRIGLYCERIDEon 10-03-2023 Triglyceride [Mass/Vol] 315 mg/dL High NINF - 150 mg/dL [facility] Comment on above: [<150 mg/dL: Desirab le] [150-199 mg/dL: Borderline] [200-499 mg/dL: High] [>500 mg/dL: Very High] VALPROIC ACID, TOTALOrdered By: Margot Gray on 10-03-2023 Valproate [Mass/Vol] 59 ug/mL The[facility] Range: 50-120 mcg/mL mcg/mL [facility] VALPROIC ACID, TOTALon 10-02 Valproate [Mass/Vol] 36 ug/mL Therape utic Range: 50-120 mcg/mL mcg/mL [facility] Valproate [Mass/Vol] 26 ug/mL Therape utic Range: 50-120 mcg/mL mcg/mL [facility] ACETAMINOPHENon 10-02-2023 Acetaminophen [Mass/Vol] ug/mL Normal 10.0-30.0 [facility] Comment on above: Performed By: #### E SANGEETHA, CMPN, MAG, ACTMN, NH3, CBCD, SPT, LIPA, SALI, TROPO #### [address] [address] ACETAMINOPHEN LEVELOrdered B y: Naomi Call on 10-02-2023 Acetaminophen [Mass/Vol] Therapeutic Range: 10-32 mcg/mL mcg/mL [facility] Interpretation and review of laboratory results Normal [facility] ACETAMINOPHEN LEVELon 2023 Acetaminophen [Mass/Vol] ug/mL 10.0 - 30.0 ug/mL [facility] ALCOHOL (ETHANOL),BLOODon Ethanol Ql (Bld) mg/dL NINF - 10 mg/dL [facility] Ethanol [Mass/Vol] mg/dL NINF - 10 mg/dL [facility] Comment on above: Effective 09-08-08 ne w methodology and new instrumentation: lower reportable range is 10 mg/dl. [place] legal limit of intoxication is 80 mg/dl or 0.08 g/dl. [facility] [place] MG/DL ALCOHOL MEDICALon 10-02-2023 Ethanol [Mass/Vol] mg/dL Normal <10 [facility] Comment on above: Result Comment: Effe ctive 09-08-08 new methodology and new instrumentation: lower reportable range is 10 mg/dl. [place] legal limit of intoxication is 80 mg/dl or 0.08 g/dl. [facility] [place] MG/DL Performed By: #### E SANGEETHA, CMPN, MAG, ACTMN, NH3, CBCD, SPT, LIPA, SALI, TROPO #### [address] [address] AMMONIAon 10-02-2023 Ammonia (P) [Moles/Vol] 56 umol/L High 6 - 47 umol/L [facility] Interpretation and review of laboratory results Abnormal [facility] Ammonia (P) [Moles/Vol] 79 umol/L High 6 - 47 umol/L [facility] Interpretation and review of laboratory results Abnormal [facility] Ammonia (P) [Moles/Vol] 97 umol/L High 6 - 47 umol/L [facility] Interpretation and review of laboratory results Abnormal [facility] Ammonia (P) [Moles/Vol] 210 umol/L High 6 - 47 umol/L [facility] Interpretation and review of laboratory results Abnormal [facility] Ammonia (P) [Moles/Vol] 236 umol/L High 6 - 47 umol/L [facility] Interpretation and review of laboratory results Abnormal [facility] Ammonia (P) [Moles/Vol] 44.0 umol/L High 9.0-30.0 [facility] Comment on above: Performed By: #### E SANGEETHA, CMPN, MAG, ACTMN, NH3, CBCD, SPT, LIPA, SALI, TROPO #### [address] [address] Ammonia (P) [Moles/Vol] 44.0 umol/L High 9.0 - 30.0 umol/L [facility] ARTERIAL BLOOD GAS PLUS LACT ATEon 10-02-2023 Base excess Calc (Bld) [Moles/Vol] -3.0000 mmol/L -3.0 - 3.0 mmol/L [facility] CO2 (Bld) [Partial pressure] 49 mm[Hg] High [facility] HCO3 (Bld) [Moles/Vol] 24 mmol/L 22 - 28 mmol/L [facility] Inhaled oxygen concentration % % [facility] Interpretation and review of laboratory results Abnormal [facility] Lactate [Moles/Vol] 1.6 mmol/L 0.5 - 1. 6 mmol/L [facility] Oxygen (Bld) [Partial pressure] 102 mm[Hg] [facility] Oxygen saturation in Blood 99 % High 94 - 98 % [facility] PF Ratio [facility] pH (Bld) 7.29 [pH] Low 7.35 - 7.45 [facility] Specimen source Nom (Unsp spec) Arterial [facility] Arterial Line Placementon [facility] Radiology Study observation (narrative) [facility] BETA HCG, QUAL, BLOODon 09-17 HCG ( test) Ql Negative [facility] BILIRUBIN DIRECTon Bilirubin.direct [Mass/Vol] 0.1 mg/dL NINF - 0.3 mg/dL [facility] Interpretation and review of laboratory results Normal [facility] Bilirubin.direct [Mass/Vol] 0.1 mg/dL NINF - 0.3 mg/dL [facility] CALCIUMon 10-02-2023 Calcium [Mass/Vol] 9.0 mg/dL 8.6 - 10. 5 mg/dL [facility] ADALID AURIS SCREEN BY PCRO rdered By: Izabella Ortiz on 10-02-2023 Adalid auris Screen by PCR Not detected Not Detected [facility] Interpretation and review of laboratory results Normal [facility] This test was perfor med using a real-time PCR assay. This test was developed, and its performance characteristics determined by [facility]. It has not been cleared or approved by the FDA. The laboratory is regulated under CLIA as qualified to perform high-complexity testing. This test is used for clinical purposes. It should not be regarded as investigational or for research. [facility] CBC WITH DIFFERENTIALon 09-17 Basophils (Bld) [#/Vol] 0.03 10*3/uL Normal 0.00-0.20 [facility] Comment on above: Performed By: #### E SANGEETHA, CMPN, MAG, ACTMN, NH3, CBCD, SPT, LIPA, SALI, TROPO #### [address] [address] Basophils/100 WBC (Bld) 0.3 % Normal 0.0-2.0 [facility] Comment on above: Performed By: #### E SANGEETHA, CMPN, MAG, ACTMN, NH3, CBCD, SPT, LIPA, SALI, TROPO #### [address] [address] Eosinophils (Bld) [#/Vol] 0.07 10*3/uL Normal 0.00-0.50 [facility] Comment on above: Performed By: #### E SANGEETHA, CMPN, MAG, ACTMN, NH3, CBCD, SPT, LIPA, SALI, TROPO #### [address] [address] Eosinophils/100 WBC (Bld) 0.8 % Normal 0.0-4.0 [facility] Comment on above: Performed By: #### E SANGEETHA, CMPN, MAG, ACTMN, NH3, CBCD, SPT, LIPA, SALI, TROPO #### [address] [address] Erythrocyte distribution width (RBC) [Ratio] 13.1 % Normal 11.6-14.4 [facility] Comment on above: Performed By: #### E SANGEETHA, CMPN, MAG, ACTMN, NH3, CBCD, SPT, LIPA, SALI, TROPO #### [address] [address] Hematocrit (Bld) [Volume fraction] 42.7 % Normal 36.5-44.6 [facility] Comment on above: Performed By: #### E SANGEETHA, CMPN, MAG, ACTMN, NH3, CBCD, SPT, LIPA, SALI, TROPO #### [address] [address] Hemoglobin (Bld) [Mass/Vol] 14.4 g/dL Normal 11.8-14.8 [facility] Comment on above: Performed By: #### E SANGEETHA, CMPN, MAG, ACTMN, NH3, CBCD, SPT, LIPA, SALI, TROPO #### [address] [address] Lymphocytes (Bld) [#/Vol] 3.89 10*3/uL Normal 1.00-4.80 [facility] Comment on above: Performed By: #### E SANGEETHA, CMPN, MAG, ACTMN, NH3, CBCD, SPT, LIPA, SALI, TROPO #### [address] [address] MCH (RBC) [Entitic mass] 29.9 pg Normal 26.7-32.9 [facility] Comment on above: Performed By: #### E SANGEETHA, CMPN, MAG, ACTMN, NH3, CBCD, SPT, LIPA, SALI, TROPO #### [address] [address] MCHC (RBC) [Mass/Vol] 33.7 g/dL Normal 31.5-34.1 [facility] Comment on above: Performed By: #### E SANGEETHA, CMPN, MAG, ACTMN, NH3, CBCD, SPT, LIPA, SALI, TROPO #### [address] [address] MCV (RBC) [Entitic vol] 88.6 fL Normal 82.4-99.1 [facility] Comment on above: Performed By: #### E SANGEETHA, CMPN, MAG, ACTMN, NH3, CBCD, SPT, LIPA, SALI, TROPO #### [address] [address] Monocytes (Bld) [#/Vol] 0.29 10*3/uL Normal 0.20-1.20 [facility] Comment on above: Performed By: #### E SANGEETHA, CMPN, MAG, ACTMN, NH3, CBCD, SPT, LIPA, SALI, TROPO #### [address] [address] Monocytes/100 WBC (Bld) 3.3 % Low 5.0-11.0 [facility] Comment on above: Performed By: #### E SANGEETHA, CMPN, MAG, ACTMN, NH3, CBCD, SPT, LIPA, SALI, TROPO #### [address] [address] Neutrophils (Bld) [#/Vol] 4.59 10*3/uL Normal 2.00-7.50 [facility] Comment on above: Performed By: #### E SANGEETHA, CMPN, MAG, ACTMN, NH3, CBCD, SPT, LIPA, SALI, TROPO #### [address] [address] NRBC COUNT 0.00 Normal 0.00-0.50 [facility] Comment on above: Performed By: #### E SANGEETHA, CMPN, MAG, ACTMN, NH3, CBCD, SPT, LIPA, SALI, TROPO #### [address] [address] Nucleated RBC/100 WBC (Bld) [Ratio] 0.0 % Normal [facility] Comment on above: Performed By: #### E SANGEETHA, CMPN, MAG, ACTMN, NH3, CBCD, SPT, LIPA, SALI, TROPO #### [address] [address] Platelet mean volume (Bld) [Entitic vol] 12.3 fL High 9.1-11.4 [facility] Comment on above: Performed By: #### E SANGEETHA, CMPN, MAG, ACTMN, NH3, CBCD, SPT, LIPA, SALI, TROPO #### [address] [address] Platelets (Bld) [#/Vol] 283 10*3/uL Normal 179-382 [facility] Comment on above: Performed By: #### E SANGEETHA, CMPN, MAG, ACTMN, NH3, CBCD, SPT, LIPA, SALI, TROPO #### [address] [address] RBC (Bld) [#/Vol] 4.82 10*6/uL Normal 3.80-5.10 [facility] Comment on above: Performed By: #### E SANGEETHA, CMPN, MAG, ACTMN, NH3, CBCD, SPT, LIPA, SALI, TROPO #### [address] [address] Segmented neutrophils/100 WBC (Bld) 51.6 % Normal 36.0-66.0 [facility] Comment on above: Performed By: #### E SANGEETHA, CMPN, MAG, ACTMN, NH3, CBCD, SPT, LIPA, SALI, TROPO #### [address] [address] Variant lymphocytes Auto Ql (Bld) 43.8 % Normal 24.0-44.0 [facility] Comment on above: Performed By: #### E SANGEETHA, CMPN, MAG, ACTMN, NH3, CBCD, SPT, LIPA, SALI, TROPO #### [address] [address] WBC (Bld) [#/Vol] 8.89 10*3/uL Normal 3.21-9.43 [facility] Comment on above: Performed By: #### E SANGEETHA, CMPN, MAG, ACTMN, NH3, CBCD, SPT, LIPA, SALI, TROPO #### [address] [address] [facility] - EDon 10-02-2023 Anion gap [Moles/Vol] 21 mmol/L High 7 - 17 mmol/L [facility] Chloride [Moles/Vol] 113 mmol/L High 98 - 10 8 mmol/L [facility] CO2 [Moles/Vol] 18 mmol/L Low 21 - 31 mmol/L [facility] Creatinine [Mass/Vol] 0.79 mg/dL 0.50 - 1.20 mg/dL [facility] eGFR, CKD-EPI, Female - PINF [facility] Comment on above: Reported eGFR is bas ed on the CKD-EPI 2020 equation using creatinine, age, and sex. Glucose [Mass/Vol] 122 mg/dL High 70 - 99 mg/dL [facility] Interpretation and review of laboratory results Abnormal [facility] Osmolality Calc [Osmolality] 306 High [facility] Potassium [Moles/Vol] 4.1 mmol/L 3.5 - 5.0 mmol/L [facility] Sodium [Moles/Vol] 148 mmol/L High 135 - 145 mmol/L [facility] Urea nitrogen [Mass/Vol] 4 mg/dL Low 7 - 25 mg/dL [facility] Urea nitrogen/Creatinine [Mass ratio] 5 mg/mg [facility] CKon 10-02-2023 CK [Catalytic activity/Vol] 185 U/L High 30 - 184 U/L [facility] CK [Catalytic activity/Vol] 154 U/L 30 - 184 U/L [facility] CK [Catalytic activity/Vol] 85 U/L 30 - 184 U/L [facility] Interpretation and review of laboratory results Normal [facility] COMPREHENSIVE METABOLIC PANE John 10-02-2023 Albumin [Mass/Vol] 3.9 g/dL 3.5 - 5.0 g/dL [facility] ALP [Catalytic activity/Vol] 33 U/L 32 - 126 U/L [facility] ALT [Catalytic activity/Vol] 21 U/L 9 - 48 U/L [facility] Anion gap [Moles/Vol] 15 mmol/L 7 - 17 mmol/L [facility] AST [Catalytic activity/Vol] 18 U/L 10 - 39 U/L [facility] Bilirubin [Mass/Vol] 0.6 mg/dL NINF - 1.5 mg/dL [facility] Calcium [Mass/Vol] 7.7 mg/dL Low 8.6 - 10. 5 mg/dL [facility] Chloride [Moles/Vol] 114 mmol/L High 98 - 10 8 mmol/L [facility] CO2 [Moles/Vol] 23 mmol/L 21 - 31 mmol/L [facility] Creatinine [Mass/Vol] 0.79 mg/dL 0.50 - 1.20 mg/dL [facility] eGFR, CKD-EPI, Female - PINF [facility] Comment on above: Reported eGFR is bas ed on the CKD-EPI 2020 equation using creatinine, age, and sex. Glucose [Mass/Vol] 72 mg/dL 70 - 99 mg/dL [facility] Osmolality Calc [Osmolality] 304 [facility] Potassium [Moles/Vol] 3.6 mmol/L 3.5 - 5.0 mmol/L [facility] Protein [Mass/Vol] 6.5 g/dL 6.4 - 8.3 g/dL [facility] Sodium [Moles/Vol] 148 mmol/L High 135 - 145 mmol/L [facility] Urea nitrogen [Mass/Vol] 10 mg/dL 7 - 25 mg/dL [facility] Urea nitrogen/Creatinine [Mass ratio] 13 mg/mg [facility] Albumin [Mass/Vol] 4.3 g/dL Normal 3.5-5.0 [facility] Comment on above: Performed By: #### E SANGEETHA, CMPN, MAG, ACTMN, NH3, CBCD, SPT, LIPA, SALI, TROPO #### [address] [address] Protein [Mass/Vol] 7.9 g/dL Normal 6.0-8.2 [facility] Comment on above: Performed By: #### E SANGEETHA, CMPN, MAG, ACTMN, NH3, CBCD, SPT, LIPA, SALI, TROPO #### [address] [address] ALP [Catalytic activity/Vol] 56 U/L Normal 38-126 [facility] Comment on above: Performed By: #### E SANGEETHA, CMPN, MAG, ACTMN, NH3, CBCD, SPT, LIPA, SALI, TROPO #### [address] [address] ALT [Catalytic activity/Vol] 36 U/L Normal 9-52 [facility] Comment on above: Performed By: #### E SANGEETHA, CMPN, MAG, ACTMN, NH3, CBCD, SPT, LIPA, SALI, TROPO #### [address] [address] AST [Catalytic activity/Vol] 28 U/L Normal 14-56 [facility] Comment on above: Performed By: #### E SANGEETHA, CMPN, MAG, ACTMN, NH3, CBCD, SPT, LIPA, SALI, TROPO #### [address] [address] Bilirubin [Mass or moles/Vol] 0.5 mg/dL Normal 0.2-1.2 [facility] Comment on above: Performed By: #### E SANGEETHA, CMPN, MAG, ACTMN, NH3, CBCD, SPT, LIPA, SALI, TROPO #### [address] [address] Calcium [Mass/Vol] 9.6 mg/dL Normal 8.4-10.2 [facility] Comment on above: Performed By: #### E SANGEETHA, CMPN, MAG, ACTMN, NH3, CBCD, SPT, LIPA, SALI, TROPO #### [address] [address] CO2 [Moles/Vol] 20.0 mm/Hg Low 22.0-30.0 [facility] Comment on above: Performed By: #### E SANGEETHA, CMPN, MAG, ACTMN, NH3, CBCD, SPT, LIPA, SALI, TROPO #### [address] [address] Creatinine [Mass/Vol] 0.64 mg/dL Low 0.70-1.20 [facility] Comment on above: Performed By: #### E SANGEETHA, CMPN, MAG, ACTMN, NH3, CBCD, SPT, LIPA, SALI, TROPO #### [address] [address] GFR/1.73 sq M.predicted (S/P/Bld) [Vol rate/Area] 116 mL/min Normal >60 [facility] Comment on above: Result Comment: Refe rence Range: 59 to 44 - Mild to moderate loss of kidney function 44 to 30 - Moderate to Severe loss of kidney function 29 to 15 - Severe loss of kidney function <15 - Kidney failure The estimated GFR is based on the MDRD formula for assessment of stable or slowly declining kidney function in adults. Estimated GFR values are not accurate in: -Obese (BMI>34) OR underweight (BMI<20) people -The very old OR very young -Races other than or -Thai -People with acute illnesses, amputations, or acute kidney failure. Estimated GFR should be interpreted in clinical context and an alternative method such as a timed urine collection for creatinine clearance used to verify questionable results. (Ref. National Kidney Foundation 2015) Performed By: #### E SANGEETHA, CMPN, MAG, ACTMN, NH3, CBCD, SPT, LIPA, SALI, TROPO #### [address] [address] Glucose [Mass/Vol] 113 mg/dL High 70-100 [facility] Comment on above: Performed By: #### E SANGEETHA, CMPN, MAG, ACTMN, NH3, CBCD, SPT, LIPA, SALI, TROPO #### [address] [address] Potassium [Moles/Vol] 15.2 mmol/L Normal [facility] Comment on above: Result Comment: 01-01 Performed By: #### E SANGEETHA, CMPN, MAG, ACTMN, NH3, CBCD, SPT, LIPA, SALI, TROPO #### [address] [address] Urea nitrogen/Creatinine [Mass ratio] 4 mg/dL Low - [facility] Comment on above: Performed By: #### E SANGEETHA, CMPN, MAG, ACTMN, NH3, CBCD, SPT, LIPA, SALI, TROPO #### [address] [address] Potassium [Moles/Vol] 3.7 mmol/L Normal 3.5-5.0 [facility] Comment on above: Performed By: #### E SANGEETHA, CMPN, MAG, ACTMN, NH3, CBCD, SPT, LIPA, SALI, TROPO #### [address] [address] Sodium [Moles/Vol] 151 mmol/L High 136-145 [facility] Comment on above: Performed By: #### E SANGEETHA, CMPN, MAG, ACTMN, NH3, CBCD, SPT, LIPA, SALI, TROPO #### [address] [address] Chloride [Moles/Vol] 116 mmol/L High 100-110 [facility] Comment on above: Performed By: #### E SANGEETHA, CMPN, MAG, ACTMN, NH3, CBCD, SPT, LIPA, SALI, TROPO #### [address] [address] Albumin [Mass/Vol] 4.3 g/dL 3.5 - 5.0 g/dL [facility] ALP [Catalytic activity/Vol] 56 U/L 38 - 126 U/L [facility] ALT [Catalytic activity/Vol] 36 U/L 9 - 52 U/L [facility] Anion gap [Moles/Vol] 15.2 mmol/L [facility] Comment on above: 7-16 AST [Catalytic activity/Vol] 28 U/L 14 - 56 U/L [facility] Bilirubin [Mass or moles/Vol] 0.5 mg/dL 0.2 - 1.2 mg/dL [facility] Calcium [Mass/Vol] 9.6 mg/dL 8.4 - 10. 2 mg/dL [facility] Chloride [Moles/Vol] 116 mmol/L High 100 - 1 10 mmol/L [facility] CO2 [Moles/Vol] 20.0 mmol/L Low [facility] Creatinine [Mass/Vol] 0.64 mg/dL Low 0.70 - 1.20 mg/dL [facility] GFR/1.73 sq M.predicted (S/P/Bld) [Vol rate/Area] 116 mL/min - PINF [facility] Comment on above: Reference Range: 59 to 44 - Mild to moderate loss of kidney function 44 to 30 - Moderate to Severe loss of kidney function 29 to 15 - Severe loss of kidney function <15 - Kidney failure The estimated GFR is based on the MDRD formula for assessment of stable or slowly declining kidney function in adults. Estimated GFR values are not accurate in: -Obese (BMI>34) OR underweight (BMI<20) people -The very old OR very young -Races other than or -Thai -People with acute illnesses, amputations, or acute kidney failure. Estimated GFR should be interpreted in clinical context and an alternative method such as a timed urine collection for creatinine clearance used to verify questionable results. (Ref. National Kidney Foundation 2015) Glucose [Mass/Vol] 113 mg/dL High 70 - 100 mg/dL [facility] Potassium [Moles/Vol] 3.7 mmol/L 3.5 - 5.0 mmol/L [facility] Protein [Mass/Vol] 7.9 g/dL 6.0 - 8.2 g/dL [facility] Sodium [Moles/Vol] 151 mmol/L High 136 - 145 mmol/L [facility] Urea nitrogen/Creatinine [Mass ratio] 4 mg/dL Low 7 - 22 mg/dL [facility] COMPREHENSIVE METABOLIC PANE LOrdered By: Malick Ayoub on 10-02-2023 Albumin [Mass/Vol] 3.8 g/dL 3.5 - 5.0 g/dL [facility] ALP [Catalytic activity/Vol] 33 U/L 32 - 126 U/L [facility] ALT [Catalytic activity/Vol] 19 U/L 9 - 48 U/L [facility] Anion gap [Moles/Vol] 15 mmol/L 7 - 17 mmol/L [facility] AST [Catalytic activity/Vol] 15 U/L 10 - 39 U/L [facility] Bilirubin [Mass/Vol] 0.6 mg/dL NINF - 1.5 mg[facility] Calcium [Mass/Vol] 7.6 mg/dL Low 8.6 - 10. 5 mg/dL [facility] Chloride [Moles/Vol] 117 mmol/L High 98 - 10 8 mmol/L [facility] CO2 [Moles/Vol] 23 mmol/L 21 - 31 mmol/L [facility] Creatinine [Mass/Vol] 0.84 mg/dL 0.50 - 1.20 mg/dL [facility] eGFR, CKD-EPI, Female - PINF [facility] Comment on above: Reported eGFR is bas ed on the CKD-EPI 2020 equation using creatinine, age, and sex. Glucose [Mass/Vol] 84 mg/dL 70 - 99 mg/dL [facility] Interpretation and review of laboratory results Abnormal [facility] Osmolality Calc [Osmolality] 312 High [facility] Potassium [Moles/Vol] 3.4 mmol/L Low 3.5 - 5.0 mmol/L [facility] Protein [Mass/Vol] 6.5 g/dL 6.4 - 8.3 g/dL [facility] Comment on above: Results inconsistent with previous results Sodium [Moles/Vol] 152 mmol/L High 135 - 145 mmol/L [facility] Urea nitrogen [Mass/Vol] 9 mg/dL 7 - 25 mg/dL [facility] Urea nitrogen/Creatinine [Mass ratio] 11 mg/mg [facility] CT Cervical spine WO contras ton 10-02-2023 IMPRESSION: No acute fracture or traumatic malalignment of the cervical spine. I personally viewed and interpreted these images and I have reviewed and approved this report. OLOGY EXAM: CT SPINE CERVI MARGIE WITHOUT CONTRAST, 10/02/2023 05:36 AM COMPARISON: No priors available for comparison. CLINICAL INDICATIONS: 28 years Female AMS found down, no details if patient fell vs was just found down; TECHNIQUE: A series of transaxial multislice computerized tomographic thin section source images are obtained with helical technique from clivus to upper thoracic spine without contrast. Reformats: Axial, sagittal, coronal. FINDINGS: Alignment is normal. Vertebral bodies are normal in height. Prevertebral and other paraspinal soft tissues are within normal limits. Intervertebral discs are within normal limits. Skull base and craniocervical junction is within normal limits. No spinal stenosis or neural foraminal compromise. RADIOLOGY Roger Hussein MD - 10/02/2023 EXAM: CT SPINE CERVICAL WITHOUT CONTRAST, 10/02/2023 05:36 AM COMPARISON: No priors available for comparison. CLINICAL INDICATIONS: 28 years Female AMS found down, no details if patient fell vs was just found down; TECHNIQUE: A series of transaxial multislice computerized tomographic thin section source images are obtained with helical technique from clivus to upper thoracic spine without contrast. Reformats: Axial, sagittal, coronal. FINDINGS: Alignment is normal. Vertebral bodies are normal in height. Prevertebral and other paraspinal soft tissues are within normal limits. Intervertebral discs are within normal limits. Skull base and craniocervical junction is within normal limits. No spinal stenosis or neural foraminal compromise. IMPRESSION IMPRESSION: No acute fracture or traumatic malalignment of the cervical spine. I personally viewed and interpreted these images and I have reviewed and approved this report. [facility] Radiology Study observation (narrative) [facility] CT Cervical spine WO contras tOrdered By: Roger Hussein on 10-02-2023 [facility] [address] Head WO contraston 2023 IMPRESSION: No acute intracranial findings within limits of motion artifact. I personally viewed and interpreted these images and I have reviewed and approved this report. OLOGY EXAM: CT HEAD WITHOU T CONTRAST, 10/02/2023 5:37 AM COMPARISON: No priors available for comparison. CLINICAL INDICATIONS: 28 years Female AMS s/p ingestion; TECHNIQUE: A series of transaxial computerized tomographic images are obtained from base of skull to vertex without intravenous contrast. Axial whole-head and thin section posterior fossa slices are provided. Reformats: Sagittal and coronal. FINDINGS: Images are degraded by patient motion artifact. Avila-white matter differentiation is preserved. No acute large territory infarction is seen. No acute intracranial hemorrhage is seen. No significant mass effect or midline shift. Ventricles are normal in size and configuration for patient age. Skull appears intact. Visualized orbits appear normal. Visualized paranasal sinuses are clear. Visualized mastoid air cells are clear. Sella is normal. RADIOLOGY Roger Hussein MD - 10/02/2023 EXAM: CT HEAD WITHOUT CONTRAST, 10/02/2023 5:37 AM COMPARISON: No priors available for comparison. CLINICAL INDICATIONS: 28 years Female AMS s/p ingestion; TECHNIQUE: A series of transaxial computerized tomographic images are obtained from base of skull to vertex without intravenous contrast. Axial whole-head and thin section posterior fossa slices are provided. Reformats: Sagittal and coronal. FINDINGS: Images are degraded by patient motion artifact. Avila-white matter differentiation is preserved. No acute large territory infarction is seen. No acute intracranial hemorrhage is seen. No significant mass effect or midline shift. Ventricles are normal in size and configuration for patient age. Skull appears intact. Visualized orbits appear normal. Visualized paranasal sinuses are clear. Visualized mastoid air cells are clear. Sella is normal. IMPRESSION IMPRESSION: No acute intracranial findings within limits of motion artifact. I personally viewed and interpreted these images and I have reviewed and approved this report. [facility] Radiology Study observation (narrative) [facility] CVC (Central Line) Placement With or Without PACon 10-02-2023 Jazmyne Espinosa APRN-SUDHAKAR 10/02/2023 6:06 PM CVC (Central Line) Placement With or Without PAC Procedure Date: 10/02/2023 Procedure Start: 07:38 EDT Performed by: DELTA Ch Authorized by: DELTA Ch Name of Voice Writing Reporter: Alma Delia Ortiz RN Indications Indications: vascular access Description of procedure: [facility] CVC [place] Protocol The procedure was performed in an emergent situation Risks and benefits discussed: Not discussed d/t altered mental status. Relevant documents present and verified: N/A Test results available and properly labeled: N/A Site marked: N/A Imaging studies available: N/A Patient identity confirmed: arm band and hospital-assigned identification number Immediately prior to procedure a time out was called to verify the correct patient, procedure, equipment, postal support employee and site/side marked as required. Checklist was followed: Yes Procedure Details Hand hygiene used Landmarks identified Ultrasound guidance used on successful attempt: yes Sterile ultrasound: sterile gel and probe cover used in ultrasound-guided central venous catheter insertion Antiseptic used: 2% chlorhexidine or acceptable alternative antiseptic used Skin prep agent completely dried prior to procedure Maximum sterile barriers were used: cap, mask, sterile gown, sterile gloves, and large sterile sheet Location: left internal jugular Site selection rationale: Easy to hemestatsis Patient position: Trendelenburg Catheter type: standard Catheter lumens:triple lumen Catheter size: 7 Fr Inserted catheter length (cm): 20 Total catheter length (cm):20 Number of attempts: 2 Successful placement: yes Anesthesia Local anesthesia used: yes Local: 1% Lidocaine Sedation patient sedated Sedation Type: Deep Procedure stop date: 10/02/2023 Procedure stop time: 08:16 EDT Procedure Vital Signs Monitored Post-Procedure guidewire removal confirmedLine secured: Yes Dressing applied: Sterile Procedure assessment: blood return through all parts and placement verified by x-ray Estimated blood loss (ml): 5 Patient tolerated the procedure well with no immediate complications I performed the procedure myself 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1995 Requested By: [id number] Order Number: [id number] Reading MD: González Snyder Measurements Intervals Ayer Rate: 121 P: 46 AR: 158 QRS: 37 QRSD: 94 T: 60 QT: 332 QTc: 471 Interpretive Statements Sinus tachycardia Nonspecific T wave abnormality Electronically Signed On 10-02-2023 15:07:13 EDT by González Snyder [facility] Comment on above: Order Comment: Vet - Unk GLUCOSE POCon 10-02-2023 Glucose [Mass/Vol] 108 mg/dL High 70 - 99 mg/dL [facility] Interpretation and review of laboratory results Abnormal [facility] POC Sample Type CAPBL [facility] Test performed at ad dress of the patient encounter. [facility] HCG ( test) Qlon HCG.beta subunit [Moles/Vol] mIU/mL [facility] Comment on above: Non-: <10 mI U/mL Postmenopause: <10 mIU/mL Male: <10 mIU/mL FEMALE GESTATIONAL AGE 2-4 Weeks: 39.1-8,388 mIU/mL 5-6 Weeks: 861-88,769 mIU/mL 6-8 Weeks: 8,636-218,085 mIU/mL 8-10 Weeks: 18,700-244,467 mIU/mL 10-12 Weeks: 23,143-181,899 mIU/mL 13-27 Weeks: 6,303-97,171 mIU/mL 24-40 Weeks: 4,360-74,883 mIU/mL Test results cannot be interpreted as absolute evidence for the presence or absence of malignant disease. [facility] HCG - QUALITATIVEon 10-02-19 HCG ( test) Ql Negative [facility] Comment on above: Performed By: #### E SANGEETHA, CMPN, MAG, ACTMN, NH3, CBCD, SPT, LIPA, SALI, TROPO #### [address] [address] HEPATIC FUNCTION PANELon Albumin [Mass/Vol] 4.7 g/dL 3.5 - 5.0 g/dL [facility] ALP [Catalytic activity/Vol] 44 U/L 32 - 126 U/L [facility] ALT [Catalytic activity/Vol] 20 U/L 9 - 48 U/L [facility] AST [Catalytic activity/Vol] 16 U/L 10 - 39 U/L [facility] Bilirubin [Mass/Vol] 0.5 mg/dL NINF - 1.5 mg/dL [facility] Bilirubin.direct [Mass/Vol] 0.2 mg/dL NINF - 0.3 mg/dL [facility] Protein [Mass/Vol] 7.6 g/dL 6.4 - 8.3 g/dL [facility] HIGH SENSITIVITY TROPONIN I - SINGLE ORDERon 10-02-2023 Interpretation and review of laboratory results Normal [facility] Troponin I.cardiac High sensitivity method [Mass/Vol] ng/L NINF - 34 ng/L [facility] IONIZED CALCIUM, SERUMOrdere d By: Brea Vasquez on 10-02-2023 Calcium.ionized (Bld) [Moles/Vol] 4.38 mg/dL Low 4.60 - 5.30 mg/dL [facility] Interpretation and review of laboratory results Abnormal [facility] LACTATE, BLOODon 10-02-2023 Interpretation and review of laboratory results Abnormal [facility] Lactate [Moles/Vol] 4.2 mmol/L Critically high 0.7 - 2.0 mmol/L [facility] CALLED ER 10/02/2023 , 00:32, ANC, VERBAL READ BACK BY Earl Farias [facility] [address] [place] [address] LACTIC ACIDon 10-02-2023 Lactate [Moles/Vol] 4.2 mmol/L Critically high 0.7-2.0 [facility] Comment on above: Order Comment: FREDERICK D ER 10/02/2023, 00:32, ANC, VERBAL READ BACK BY Earl Farias Performed By: #### E SANGEEHTA, CMPN, MAG, ACTMN, NH3, CBCD, SPT, LIPA, SALI, TROPO #### [address] [address] LIPASEon 10-02-2023 Lipase [Catalytic activity/Vol] 51 U/L 11 - 82 U/L [facility] Lipase [Catalytic activity/Vol] 150 U/L Normal 23-300 [facility] Comment on above: Performed By: #### E SANGEETHA, CMPN, MAG, ACTMN, NH3, CBCD, SPT, LIPA, SALI, TROPO #### [address] [address] Lipase [Catalytic activity/Vol] 150 U/L 23 - 300 U/L [facility] MAGNESIUMon 10-02-2023 Magnesium [Mass/Vol] 2.1 mg/dL 1.6 - 2 .6 mg/dL [facility] Magnesium [Mass/Vol] 2.2 mg/dL Normal 1.7-2.2 [facility] Comment on above: Performed By: #### E SANGEETHA, CMPN, MAG, ACTMN, NH3, CBCD, SPT, LIPA, SALI, TROPO #### [address] [address] Magnesium [Mass/Vol] 2.2 mg/dL 1.7 - 2 .2 mg/dL [facility] No Panel Informationon 10-01 Interpretation and review of laboratory results Abnormal [facility] Interpretation and review of laboratory results Normal [facility] Interpretation and review of laboratory results Normal [facility] Interpretation and review of laboratory results Normal [facility] Interpretation and review of laboratory results Abnormal [facility] No Panel InformationOrdered By: Dianelys Oconnell on 10-02-2023 Interpretation and review of laboratory results Abnormal [facility] PHOSPHATE, INORGANICon 10-01 Phosphate [Mass/Vol] 4.1 mg/dL 2.2 - 4 .6 mg/dL [facility] PLATELET COUNTon 10-02-2023 Interpretation and review of laboratory results Normal [facility] Platelet mean volume (Bld) [Entitic vol] 12.0 fL 8.5 - 12.2 fL [facility] Platelets (Bld) [#/Vol] 263 10*3/uL 150 - 393 K/uL [facility] PROCALCITONINon 10-02-2023 Interpretation and review of laboratory results Normal [facility] Procalcitonin [Mass/Vol] 0.36 ng/mL NINF - 0.50 ng/mL [facility] Comment on above: Procalcitonin is an FDA-approved assay to help manage antibiotic treatment in patients with sepsis/septic shock and lower respiratory tract infections. Specifically, trending procalcitonin in these situations can be used to reduce the duration of antibiotics. Please refer to the Procalcitonin Guide on the Antimicrobial Stewardship Webpage for more guidance on how to use and trend procalcitonin in various clinical settings. [email or web address]=[email or web address] Two common cutoffs associated with bacterial infections are as follows. Respiratory tract infections: >0.25 ng/mL Sepsis/septic shock: >0.5 ng/mL Procalcitonin should not be used alone as a diagnostic tool, however. All procalcitonin results should be interpreted in association with the patients clinical condition and all laboratory findings. [facility] PROCEDURE - INTUBATIONon Lidia Raman, DO - 10/02/2023 8:13 AM EDT PROCEDURE - INTUBATION Date/Time: 10/02/2023 8:13 AM Urgency: emergent Airway not difficult General Information and Staff Patient location during procedure: ICU Room: [place] Protocol The procedure was performed in an emergent situation Patient identity confirmed: arm band and hospital-assigned identification number Immediately prior to procedure a time out was called to verify the correct patient, procedure, equipment, postal support employee and site/side marked as required Indications and Patient Condition Indications for airway management: airway protection Preoxygenated: yes Patient position: supine Final Airway Details Final airway type: endotracheal airway Successful airway: ETT ETT size: 8.0 mm Cuffed: yes Endotracheal tube insertion site: oral Successful intubation technique: video laryngoscopy Video Laryngoscope: Syntensia Blade: Jeronimo Blade size: #3 Facilitating devices/methods: intubating stylet Cormack-Lehane Classification: grade IIa - partial view of glottis Placement verified by: auscultation, bronchoscopy and visualization through the cords Tube secured: 24 CM at the lips Number of attempts at approach: 1 Additional Comments Patient initially given 40 mg etomidate and 120 mg of rocuronium however, sedation and paralysis were not reached. She was given versed and an additional 50 mg of rocuronium and was intubated without complete sedation/paralysis. She was given propofol immediately after intubation. Recommended primary team discuss with pharmacy as concern IV was not functioning correctly. [facility] PROCEDURE - INTUBATIONOrdere d By: Chapincito Roper on 10-02-2023 [facility] Work Phone: Radiology Study observation (narrative) [facility] Work Phone: PT,INR,PTTon 10-02-2023 aPTT Coag (PPP) [Time] 27.0 s [facility] INR Coag (Bld) [Relative time] 1.1 {INR} 0.9 - 1.1 [facility] Interpretation and review of laboratory results Normal [facility] PT Coag (PPP) [Time] 14.[address] [facility] Portable XR Chest Viewson IMPRESSION: 1. Well-positioned endotracheal tube, with tip 4.7 cm above the marc. 2. Left IJ approach central venous catheter, with tip at the confluence of the left brachiocephalic vein/upper SVC. No pneumothorax. I personally viewed and interpreted these images and I have reviewed and approved this report. OLOGY EXAM: XR CHEST 1 VIE W PORTABLE, 10/02/2023 08:49 AM COMPARISON: Chest radiograph on 10/02/2023 at 0544 hours CLINICAL INDICATIONS: ETT placement RELEVANT CLINICAL HISTORY: FINDINGS: (Adequate technique) Implanted Devices: Interval placement of endotracheal tube, with tip 4.7 cm above the marc. Left IJ approach central venous catheter, with tip at the confluence of the left brachiocephalic vein/upper SVC. NG tube placement, the tip terminates beneath the diaphragm, outside view. Thorax: Normal cardiomediastinal silhouette. No pneumothorax. No pleural effusions. Lungs are somewhat under aerated with minor generalized atelectasis. RADIOLOGY Shabana Riggins M D - 10/02/2023 EXAM: XR CHEST 1 VIEW PORTABLE, 10/02/2023 08:49 AM COMPARISON: Chest radiograph on 10/02/2023 at 0544 hours CLINICAL INDICATIONS: ETT placement RELEVANT CLINICAL HISTORY: FINDINGS: (Adequate technique) Implanted Devices: Interval placement of endotracheal tube, with tip 4.7 cm above the marc. Left IJ approach central venous catheter, with tip at the confluence of the left brachiocephalic vein/upper SVC. NG tube placement, the tip terminates beneath the diaphragm, outside view. Thorax: Normal cardiomediastinal silhouette. No pneumothorax. No pleural effusions. Lungs are somewhat under aerated with minor generalized atelectasis. IMPRESSION IMPRESSION: 1. Well-positioned endotracheal tube, with tip 4.7 cm above the marc. 2. Left IJ approach central venous catheter, with tip at the confluence of the left brachiocephalic vein/upper SVC. No pneumothorax. I personally viewed and interpreted these images and I have reviewed and approved this report. [facility] Radiology Study observation (narrative) [facility] IMPRESSION: No acute cardiopulmonary disease I personally viewed and interpreted these images and I have reviewed and approved this report. OLOGY EXAM: XR CHEST 1 VIE W PORTABLE, 10/02/2023 05:58 AM COMPARISON: No prior studies available for comparison. CLINICAL INDICATIONS: ingestion FINDINGS: (Compromised by low lung volumes) Implanted Devices: None Thorax: Low lung volumes. Lungs are clear. No pneumothorax. No definite pleural effusion. Normal heart size. No acute osseous abnormality. RADIOLOGY Roger Hussein MD - 10/02/2023 EXAM: XR CHEST 1 VIEW PORTABLE, 10/02/2023 05:58 AM COMPARISON: No prior studies available for comparison. CLINICAL INDICATIONS: ingestion FINDINGS: (Compromised by low lung volumes) Implanted Devices: None Thorax: Low lung volumes. Lungs are clear. No pneumothorax. No definite pleural effusion. Normal heart size. No acute osseous abnormality. IMPRESSION IMPRESSION: No acute cardiopulmonary disease I personally viewed and interpreted these images and I have reviewed and approved this report. [facility] Radiology Study observation (narrative) [facility] Portable XR Chest ViewsOrder ed By: Shabana Riggins on 10-02-2023 [facility] Work Phone: SALICYLATEon 10-02-2023 Salicylates [Mass/Vol] mg/dL Low 2.0-20.0 [facility] Comment on above: Performed By: #### E SANGEETHA, CMPN, MAG, ACTMN, NH3, CBCD, SPT, LIPA, SALI, TROPO #### [address] [address] SALICYLATE LEVELOrdered By: Naz Perez on 10-02-2023 Interpretation and review of laboratory results Normal [facility] Salicylates [Mass/Vol] mg/dL Therapeutic Range: 20.0-30.0 mg/dL mg/dL [facility] Repeated and verjono d [facility] SALICYLATE LEVELon Interpretation and review of laboratory results Abnormal [facility] Salicylates [Mass/Vol] mg/dL Low 2.0 - 20.0 mg/dL [facility] TROPONINon 10-02-2023 Troponin I.cardiac [Mass/Vol] ng/mL 0.012 - 0.120 ng/mL [facility] Comment on above: REFERENCE RANGE IS 0.012 - 0.120 ng/ml cTnI - The cutoff of 0.120 ng/ml is recommended for diagnosis of AMI, yielding optimal performance of 95% sensitivity and 93% specificity. TROPONIN Ion 10-02-2023 Troponin I.cardiac [Mass/Vol] ng/mL Normal 0.012-0.120 [facility] Comment on above: Result Comment: RE FERENCE RANGE IS 0.012 - 0.120 ng/ml cTnI - The cutoff of 0.120 ng/ml is recommended for diagnosis of AMI, yielding optimal performance of 95% sensitivity and 93% specificity. Performed By: #### E SANGEETHA, CMPN, MAG, ACTMN, NH3, CBCD, SPT, LIPA, SALI, TROPO #### [address] [address] TSHon 10-02-2023 Interpretation and review of laboratory results Normal [facility] TSH Qn 0.967 m[IU]/L [facility] URINALYSIS REFLEX TO CULTURE PERFORMABLEon 10-02-2023 Appearance (U) Clear Clear [facility] Bacteria LM Ql (Urine sed) ABSENT ABSENT [facility] Color (U) Yellow Yellow [facility] Epithelial cells.squamous LM Ql (Urine sed) 3-5/hpf = 1+ 0-2/hpf, 3-5/hpf = 1+ [facility] Glucose Test strip (U) [Mass/Vol] Negative Negative [facility] Interpretation and review of laboratory results [facility] Ketones (U) [Mass/Vol] 40 mg/dL = Moderate Abnormal Negative [facility] Leukocyte esterase Test strip Ql (U) Negative Negative [facility] Nitrite Ql (U) Negative Negative [facility] pH (U) 5.5 [pH] 5.0 - 7.0 [facility] Protein (U) [Mass/Vol] 30 mg/dL Abnormal Negative [facility] RBC (U) [#/Vol] Negative Negative [facility] RBC LM.HPF (Urine sed) [#/Area] 0-2 [facility] Specific gravity (U) [Rel density] 1.040 High 1.001 - 1.035 [facility] Urobilinogen (U) [Mass/Vol] 1.0 E.U./dL 0.2 E.U/dL, 1.0 E.U/dL [facility] WBC LM.HPF (Urine sed) [#/Area] 0 - 5 [facility] VALPROIC ACIDon 10-02-2023 Valproate [Mass/Vol] 807.6 ug/mL Critically high 50.0-100. 0 [facility] Comment on above: Order Comment: .CALL ED ER 10/02/2023, 00:48, ANC, VERBAL READ BACK BY Dali Mendoza Performed By: #### E SANGEETHA, CMPN, MAG, ACTMN, NH3, CBCD, SPT, LIPA, SALI, TROPO #### [address] [address] VALPROIC ACID, FREEon 2023 Interpretation and review of laboratory results Abnormal [facility] Valproate Free [Mass/Vol] Critically high Therapeutic Range: 5-35 mcg/mL mcg/mL [facility] VALPROIC ACID, TOTALon 10-01 Interpretation and review of laboratory results Normal [facility] Valproate [Mass/Vol] 77 ug/mL Therape utic Range: 50-120 mcg/mL mcg/mL [facility] Interpretation and review of laboratory results Normal [facility] Valproate [Mass/Vol] 106 ug/mL Therape utic Range: 50-120 mcg/mL mcg/mL [facility] Valproate [Mass/Vol] 186 ug/mL Critically high Ther apeutic Range: 50-120 mcg/mL mcg/mL [facility] Interpretation and review of laboratory results Abnormal [facility] Valproate [Mass/Vol] 426 ug/mL Critically high Ther apeutic Range: 50-120 mcg/mL mcg/mL [facility] Comment on above: AVA KHAN [facility] Interpretation and review of laboratory results Abnormal [facility] Valproate [Mass/Vol] 807.6 ug/mL Critically high 50.0 - 100.0 ug/mL [facility] CALLED ER 10/02/2023 , 00:48, ANC, VERBAL READ BACK BY [address] VALPROIC ACID, TOTALOrdered By: Dianelys Oconnell on 10-02-2023 Valproate [Mass/Vol] 302 ug/mL Critically high Ther apeutic Range: 50-120 mcg/mL mcg/mL [facility] VALPROIC ACID, TOTALOrdered By: Anna Ortiz on 10-02-2023 Interpretation and review of laboratory results Abnormal [facility] Valproate [Mass/Vol] 625 ug/mL Critically high Ther apeutic Range: 50-120 mcg/mL mcg/mL [facility] VENOUS BLOOD GASon Base excess Calc (Bld) [Moles/Vol] -6.8000 mmol/L Low -3.0 - 3.0 mmol/L [facility] CO2 (Bld) [Partial pressure] 29 mm[Hg] Low [facility] HCO3 (Bld) [Moles/Vol] 18 mmol/L Low 22 - 29 mmol/L [facility] Interpretation and review of laboratory results Abnormal [facility] Oxygen (Bld) [Partial pressure] 62 mm[Hg] mm Hg [facility] Comment on above: Venous pO2 is not re commended for the evaluation of oxygen status, clinical correlation is recommended. Oxygen saturation in Blood 93 % High 70 - 80 % [facility] pH (Bld) 7.40 [pH] 7.32 - 7.43 [facility] Specimen source Nom (Unsp spec) Venous [facility] VENOUS BLOOD GAS PLUS LACTAT Gustabo 10-02-2023 Base excess Calc (Bld) [Moles/Vol] -0.3000 mmol/L -3.0 - 3.0 mmol/L [facility] CO2 (Bld) [Partial pressure] 42 mm[Hg] [facility] HCO3 (Bld) [Moles/Vol] 25 mmol/L 22 - 29 mmol/L [facility] Interpretation and review of laboratory results Abnormal [facility] Lactate [Moles/Vol] 3.6 mmol/L High 0.5 - 1. 6 mmol/L [facility] Comment on above: Lactate results >/= 2.0 mmol/L should be followed up with a measurement 4 hours later for patients with suspicion of sepsis. Oxygen (Bld) [Partial pressure] 59 mm[Hg] mm Hg [facility] Comment on above: Venous pO2 is not re commended for the evaluation of oxygen status, clinical correlation is recommended. Oxygen saturation in Blood 91 % High 70 - 80 % [facility] pH (Bld) 7.38 [pH] 7.32 - 7.43 [facility] Specimen source Nom (Unsp spec) [facility]ous [facility] XR Abdomen Single viewon IMPRESSION: 1. Nasogastric/orogastric tube is within the stomach. 2. Nonobstructive bowel gas pattern. OLOGY EXAM: XR ABDOMEN 1 V IEW PORTABLE, 10/02/2023 08:49 AM COMPARISON: No prior abdominal radiographs available for comparison. CLINICAL INDICATIONS: NG/OG placement. FINDINGS: Tubes: Nasogastric/orogastric tube curls in the gastric body with the tip in the gastric fundus. The side-port is in the gastric body. No organomegaly or mass effect. No evidence of gross free intraperitoneal air. Nonobstructive bowel gas pattern. RADIOLOGY Hector Patricio MD - 10/02/2023 EXAM: XR ABDOMEN 1 VIEW PORTABLE, 10/02/2023 08:49 AM COMPARISON: No prior abdominal radiographs available for comparison. CLINICAL INDICATIONS: NG/OG placement. FINDINGS: Tubes: Nasogastric/orogastric tube curls in the gastric body with the tip in the gastric fundus. The side-port is in the gastric body. No organomegaly or mass effect. No evidence of gross free intraperitoneal air. Nonobstructive bowel gas pattern. IMPRESSION IMPRESSION: 1. Nasogastric/orogastric tube is within the stomach. 2. Nonobstructive bowel gas pattern. [facility] Radiology Study observation (narrative) [facility] XR Abdomen Single viewOrdere d By: Hector Patricio on 10-02-2023 [facility] Work Phone: CBC, EDIF, PLATELETon 2023 Basophils (Bld) [#/Vol] 0.03 10*3/uL 0.00 - 0.20 10*3/uL [facility] Basophils/100 WBC (Bld) 0.3 % 0.0 - 2.0 % [facility] Eosinophils (Bld) [#/Vol] 0.07 10*3/uL 0.00 - 0.50 10*3/uL [facility] Eosinophils/100 WBC (Bld) 0.8 % 0.0 - 4.0 % [facility] Erythrocyte distribution width (RBC) [Ratio] 13.1 % 11.6 - 14.4 % [facility] Hematocrit (Bld) [Volume fraction] 42.7 % 36.5 - 44.6 % [facility] Hemoglobin (Bld) [Mass/Vol] 14.4 g/dL 11.8 - 14.8 g/dL [facility] Interpretation and review of laboratory results Abnormal [facility] Lymphocytes (Bld) [#/Vol] 3.89 10*3/uL 1.00 - 4.80 10*3/uL [facility] MCH (RBC) [Entitic mass] 29.9 pg 26.7 - 32.9 pg [facility] MCHC (RBC) [Mass/Vol] 33.7 g/dL 31.5 - 34.1 g/dL [facility] MCV (RBC) [Entitic vol] 88.6 fL 82.4 - 99.1 fL [facility] Monocytes (Bld) [#/Vol] 0.29 10*3/uL 0.20 - 1.20 10*3/uL [facility] Monocytes/100 WBC (Bld) 3.3 % Low 5.0 - 11.0 % [facility] Neutrophils (Bld) [#/Vol] 4.59 10*3/uL 2.00 - 7.50 10*3/uL [facility] Nucleated RBC/100 WBC (Bld) [Ratio] 0.0 % [facility] Platelet mean volume (Bld) [Entitic vol] 12.3 fL High 9.1 - 11.4 fL [facility] Platelets (Bld) [#/Vol] 283 10*3/uL 179 - 382 10*3/uL [facility] RBC (Bld) [#/Vol] 4.82 10*6/uL 3.80 - 5.1 0 10*6/uL [facility] RBC, NUCLEATED, ABSOLUTE 0.00 0.00 - 0.50 [facility] Segmented neutrophils/100 WBC (Bld) 51.6 % 36.0 - 66.0 % [facility] Variant lymphocytes Auto Ql (Bld) 43.8 % 24.0 - 44.0 % [facility] WBC (Bld) [#/Vol] 8.89 10*3/uL 3.21 - 9.4 3 10*3/uL [facility] CNPNon 04-17-2023 CNPN Telephone (NE50MN) AVA KHAN ([id number]) 1995 F Date Time Provider Department 04/17/23 ZAIRA WATERS NE50MN During your visit today, we recorded the following information about you: Zaira Waters Research Ruth 04/17/2023 12:43 PM Signed Patient/Research Subject Name: Ava Khan : 1995 IRB [id number]. Creating a Healthy L.I.F.E: Lifestyle Interventions For Epilepsy Client Liaison: Memo Anton MD, Flat Knitter Helper: Ray Jara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 CURRENT [facility] Mobility Raw Score: 22 CURRENT [facility] Mobility Functional Limitation: 20.91% Impaired in Basic Mobility Assessment & Plan: Pt demonstrates improved alertness and safety awareness this session. Pt performs bed mobility, transfers and ambulation without assistance needed and much improved balance/motor planning. Pt is deconditioned from baseline and would benefit from f/u acute care PT while admitted Patient Instruction/Education this session: Learners: Patient Education provided: Activity outside of therapy, Safety Teaching method: Verbal Education/Instruction Learner response: States/Identifies/Teaches back Plan for next session: Dynamic balance Acute PT Goals Plan of Care by Israel Cespedes PT at 10/05/2023 9:39 AM Version 1 of 1 Problem: PT - General Goals Goal: Supine <-> Sit Transfers - Patient will perform supine to/from sit transfers with independence and without use of hospital bed features in order to improve functional mobility and safety. Outcome: Met Goal: Sitting Endurance/Balance - Patient will perform seated balance tasks for 15 minutes with independence and no UE support Outcome: Progressing Goal: Standing Endurance/Balance - Patient will perform standing balance tasks for 15 min with independence and without an assistive device Outcome: Progressing Goal: Ambulation - Patient will ambulate 300 feet with independence and without an assistive device to improve ability to safely navigate home and community. Outcome: Progressing PT treatment consisted of the following to progress towards the above goal(s): PT Evaluation and Treatment Time Therapeutic Activity Time Entry: 6 Gait Training Time Entry: 7 Treating Therapist: Israel Cespedes PT Additional Details: PT Co-Eval/Treatment Information Co-evaluation/co-treatment performed?: Yes, combination of simultaneous billable and individual billable skilled care was necessary due to medical complexity and functional deficits Other discipline: OT Rationale for need to co-eval/treat: coordination issues Co-treatment goal focus: mobility PPE used during patient interaction: facemask, gloves Patient location at end of session: bed with head of bed elevated, RN aware, lines intact (BUTCHER in room, care is passed on) Alarms on at end of session: RN aware Needs in reach. Time In: 938 Time Out: 951 Total Visit Time: 13 minutes Total Treatment Time (skilled, billable minutes): 13 minutes Upon discontinuation of Acute Care Physical Therapy Services or patient discharge from the hospital this note represents the current Physical Therapy Discharge Summary. Physical Therapy Attempt Note 10/04/2023 PT Therapy Completed: Attempted Attempted Reason: Other (see comments) (Pt just had a central line removed) Israel Cespedes PT Time In: 1450 Time Out: 1450 Total Visit Time: 0 minutes Total Treatment Time (skilled, billable minutes): 0 minutes Occupational Therapy Attempt Note 10/04/2023 OT Therapy Completed: Attempted Attempted Reason: Patient is not medically optimized to tolerate therapy program (Hold per RN; central line just removed) BEATRIS Xavier Time In: 1449 Time Out: 1449 Total Visit Time: 0 minutes Total Treatment Time (skilled, billable minutes): 0 minutes CRITICAL CARE ATTENDING NOTE I personally saw and examined Ava Khan today. INTERVAL HISTORY: I reviewed Ava Khan's events from the last 12-24 hours. On room air. Sleepy. No major complains except for mild headache. Ventilator: Oxygen Therapy O2 Sat (%): 97 % O2 Device: room air Oxygen Concentration (%): 100 Drips: PHYSICAL EXAM: BP 113/66 Pulse 68 Temp 97.3 F (36.3 C) Resp 14 Ht 1.753 m (5' 9) Wt 115.9 kg (255 lb 8.2 oz) SpO2 97% BMI 37.73 kg/m GENERAL: no distress NEURO: awake, alert EYES: PERRL ENT: moist mucosa CV: RRR, pulses present, capillary refill ok LUNGS: diminished anteriorly ABDOMEN: not distended MSK: no edema SKIN: no rashes DIAGNOSTIC RESULTS/PROCEDURES: I have reviewed the imaging and laboratory studies in [facility]. WBC/Hgb/Hct/Plts: 5.39/10.8/32.2/129 (10/03 0503) Bun/Creat/Cl/CO2/Glucose: 9/0.43/109/25/79 (10/03 050) ASSESSMENT/PLAN: Ava Khan is a 28 y.o. female who is critically ill with the following active problems: Acute hypoxic respiratory failure requiring intubation and MV for airway protection. Extubated 10/03/23 Overdose of valproic acid leading to above- serum levels improved. Acute metabolic encephalopathy- improved Undifferentiated shock- resolved History of generalized seizure disorder History of depression Plan: HOB elevation, aspiration precautions Continue depakote and add zonisamide per neurology recs. Tylenol prn for headache. Replete electrolytes Start diet. DVT and GI prophylaxis Transfer to med surg. I spent 32 minutes in the intensive care unit providing critical care services to Ava Khan today independent of procedures and other care providers. My time managing this critically ill patient included review of interval history, laboratories, radiology and consultation reports; performing a physical examination; discussing the patient with the multi-disciplinary team and managing life sustaining therapies to prevent imminent clinical deterioration as outlined above. Emir Salinas MD Timber Fellerbody fitter Interventional Pulmonary and Critical Care Medicine Acute Physical Therapy Evaluation [facility] PRIOR LEVEL AM-PAC Mobility Raw Score: 24 Current AM-PAC score(s): CURRENT AM-PAC Mobility Raw Score: 17 Based on the above AM-PAC score(s) and PT clinical judgment, patient is a good candidate for discharge to (Anticipates discharge back to correctional institution) Mobility equipment available at home: none used ADL equipment available at home: none Equipment needed for discharge: to be determined Current therapy frequency recommendation in acute: Therapy Frequency: 5 times a week Activity Recommendations for outside of rehab session: 10/02: Up x2 assist Precautions and Weightbearing Status: Existing Precautions/Restrictions: fall Central line, Urinary catheter, Telemetry Patient Safety Communication Prior to Visit: Nursing, Physician Subjective: Pt supine in bed upon PT arrival. Pt is drowsy, but agreeable to PT at this time Pain: General Pain Documentation (Adult, OB, Peds) Presence of Pain: complains of pain/discomfort Pain Location: headache DVPRS (Defense and Veterans Pain Rating Scale) DVPRS: Rest: 8- severe pain DVPRS: Activity: 8- severe pain Home Setting Residence: Inmate Number of stairs to enter home: 0 Number of stairs in home: 0 Mobility Equipment Available: none used ADL Equipment Available: none Previous Level of Function Prior level ADL Overview: Independent with all ADLs Bed Mobility/Transfers: independent Ambulation Skills: independent Assistive Device: none used Level of Ambulation: community Objective/Observation: Vitals/Vitals Responses to Treatment: Pt vitals continuously during session. Pt participates without any overt complication 10/03/23 1350 Vitals ICU/PCU Pulse (Heart Rate) 103 Resp Rate (!) 29 BP (!) 133/91 MAP (mmHg) 108 mmHg BP Method Automatic BP Location Right arm BP Position Sitting O2 Device: room air Cognition Overall Cognitive Status: (At risk) Arousal/Alertness: Lethargic Orientation Level: Oriented to person, Oriented to place Following Commands: Follows one step commands with increased time, Follows one step commands with repetition Safety Judgment: Decreased awareness of need for assistance Vision Screen Currently wearing corrective lenses: No Speech Speech: no gross deficits noted Successful Methods (Communication Strategies): verbal speech Hearing Hearing: no gross deficits noted Extremity Assessments: RLE Assessment RLE Assessment: Within Functional Limits LLE Assessment LLE Assessment: Within Functional Limits Sensation Overall Sensation: Intact Proprioception Proprioception: shows deficit (Pt noted to have poor motor control with standing activity. Likely attributed to lethargy) Skin Integrity Skin Integrity Description: (Pt currently on period, RN aware) Mobility Assessment: Supine to Sit Mobility Mcdonough Level: Supine->Sit: stand-by assist Bed Features/Set-up: Supine->Sit: Head of bed elevated, Use of bed rail Skilled Rationale: Verbal cues, Technique of activity, Initiation and execution of task, Cues for increased safety Skilled Intervention/Details: Supine->Sit: Pt cued for initiation. Pt performs with increased time/effort Sit to Supine Mobility Mcdonough Level: Sit->Supine: minimum assist (75% patient effort) Bed Features/Set-up: Sit->Supine: Head of bed elevated Skilled Rationale: Verbal cues, Positioning, Technique of activity, Initiation and execution of task, Cues for increased safety Skilled Intervention/Details: Sit->Supine: Pt assisted minimally to lift bilateral LE's into bed. Balance: Sitting Balance Static Sitting-Level of Assistance: Standby Dynamic Sitting-Level of Assistance: Contact guard Skilled Rationale: Tactile cues, Positioning Sitting Balance Skilled Intervention/Details: Pt able to sit on EOB for several minutes with intermittent CGA secondary to mild retropulsion without any overt LOB Standing Balance Static Standing-Level of Assistance: Minimum assistance Dynamic Standing-Level of Assistance: Minimum assistance Standing-Balance Support: Bilateral hand held assist Skilled Rationale: Hand placement, Full extension to upright positioning/posture, Finding/maintaining midline positioning, Upright gaze/neck extension, Technique of activity Standing Balance Skilled Intervention/Details: Pt performs static standing at bedside and dynamic standing with lateral steps toward HOB. Pt noted to have impaired balance/motor planning in standing, likely attributed to lethargy/drowsiness Transfer Assessment: Sit to Stand Transfer Mcdonough Level: Sit->Stand: minimum assist (75% patient effort) Physical Assist: Sit->Stand: 1 person + 1 person to manage equipment Assistive Device: Sit->Stand: hand held assist Skilled Rationale: Verbal cues, Positioning, Facilitate anterior shift, Full extension to upright positioning/posture, Finding/maintaining midline positioning, Upright gaze/neck extension Skilled Intervention/Details: Sit->Stand: Pt assisted with FISHING BOAT CAPTAIN and knee block to reach upright standing. Pt has functional strength, but poor motor planning requiring assistance Stand to Sit Transfer Mcdonough Level: Stand->Sit: minimum assist (75% patient effort) Physical Assist: Stand->Sit: 1 person + 1 person to manage equipment Assistive Device: Stand->Sit: hand held assist Skilled Rationale: Positioning, Sequencing, Controlled descent for sitting Skilled Intervention/Details: Stand->Sit: Pt assisted with eccentric control to bedside Gait/Functional Mobility: Gait Assessment Mcdonough Level: Gait: minimum assist (75% patient effort) Assistive Device: Gait: hand held assist Ambulation Distance (Feet): 3 Gait Deviations Identified: decreased mary jane Gait Skilled Rationale: verbal Skilled Intervention/Details - Gait: Pt takes lateral steps toward HOB to the L with min assist to maintain upright standing balance Outcome Score(s): CURRENT AM-PAC Basic Mobility Inpatient Short Form Turning over in bed: 3 - A Little Assistance Moving from lying on back to sittin - A Little Assistance Moving to and from bed to chair: 3 - A Little Assistance Sitting/standing from chair: 3 - A Little Assistance Walk in hospital room: 3 - A Little Assistance Climbing 3-5 steps with a railin - A Lot of Assistance CURRENT [facility] Mobility Raw Score: 17 CURRENT [facility] Mobility Functional Limitation: 50.57% Impaired in Basic Mobility Assessment & Plan: 28 y.o. inmate with a history of generalized convulsive epilepsy with intractable epilepsy (was on VPA 750 mg AM /1000 mg PM daily) and depression who presented as a transfer from [facility] with concern for depakote overdose. Per record from OS, patient was found unresponsive at around 2100 on 10/01/23. Staff found 3 empty month blister packs of Depakote (500mg) with total 90 pills. Not sure exactly how many pills that patient had been taken given per report that she might shared some with other inmates Patient was admitted for Intentional overdose and seen for therapy evaluation related to Mobility needs. Exam findings include impairments in: Strength, Balance, Transfers, Gait/Locomotion, Ventilation and respiration/gas exchange. These impairments contribute to functional limitations including Increased fall risk, Decreased ambulation distance/endurance, Difficulty with bed mobility, Difficulty with transfers, Decreased functional mobility. Pt performs bed mobility, transfers and short lateral steps towards HOB. Pt limited functionally by lethargy and impaired balance. Pt demonstrates functional strength and PT anticipates good pt progression. Pt would benefit from f/u acute care PT to address functional mobility deficits Current clinical presentation is Evolving - changing/inconsistent clinical characteristics (Moderate). Patient history factors impacting Plan Of Care include . Patient will benefit from skilled physical therapy to address these impairments, functional limitations, and participation restrictions and has good rehab potential to achieve therapy goals. Planned Therapy Interventions: bed mobility training, endurance, functional activity tolerance, gait training, strengthening, transfer training Patient Instruction/Education this session: Learners: Patient Education provided: Activity outside of therapy, Balance training, Fall precautions, Positioning, Role of this discipline, Safety Teaching method: Verbal Education/Instruction Learner response: Needs review Plan for next session: Ambulation progression, dynamic balance Acute PT Goals Plan of Care by Israel Cespedes PT at 10/03/2023 1:43 PM Version 1 of 1 Problem: PT - General Goals Goal: Supine <-> Sit Transfers - Patient will perform supine to/from sit transfers with independence and without use of hospital bed features in order to improve functional mobility and safety. Outcome: Progressing Goal: Sitting Endurance/Balance - Patient will perform seated balance tasks for 15 minutes with independence and no UE support Outcome: Progressing Goal: Standing Endurance/Balance - Patient will perform standing balance tasks for 15 min with independence and without an assistive device Outcome: Progressing Goal: Ambulation - Patient will ambulate 300 feet with independence and without an assistive device to improve ability to safely navigate home and community. Outcome: Progressing PT treatment consisted of the following to progress towards the above goal(s): PT Evaluation and Treatment Time PT Evaluation (Moderate) Time Entry: 17 Evaluating Therapist: Israel Cespedes PT Additional Details: PT Co-Eval/Treatment Information Co-evaluation/co-treatment performed?: Yes, simultaneous billable skilled care was necessary due to medical complexity and functional deficits Other discipline: OT Evaluation Complexity Components History: Moderate (1-2 personal factors and/or comorbidities) Body Systems Review: Moderate (Addressing a total of 3 or more elements) Clinical Presentation: Evolving - changing/inconsistent clinical characteristics (Moderate) Clinical Decision Making: Moderate Time In: 1343 Time Out: 1400 Total Visit Time: 17 minutes Total Treatment Time (skilled, billable minutes): 17 minutes PPE used during patient interaction: facemask, gloves Patient location at end of session: bed with head of bed elevated, RN aware, lines intact (Shackled to bedside) Alarms on at end of session: RN aware Needs in reach. Upon discontinuation of Acute Care Physical Therapy Services or patient discharge from the hospital this note represents the current Physical Therapy Discharge Summary. Acute Occupational Therapy Evaluation Prior to Admission AM-PAC Score: PRIOR LEVEL AM-PAC Activity Raw Score: 24 Current AM-PAC score(s): CURRENT AM-PAC Activity Raw Score: 19 Based on the above AM-PAC score(s) and OT clinical judgment, discharge destination recommendation is: (Anticipate return to prior facility once medically ready for discharge) Barriers to discharge home: Patient needs assistance with functional mobility, Patient needs assistance with ADLs, Patient needs assistance with IADLs (see note below) Mobility equipment available at home: none used ADL equipment available at home: none Equipment recommendations for discharge: to be determined Current therapy frequency recommendation(s) in acute: 5 times a week Activity Recommendations for outside of rehab session: 10/02: 1-2 person pivot to chair Precautions and Weightbearing Status: OT Existing Precautions/Restrictions: fall, suicide Central line, Urinary catheter, Telemetry Patient Safety Communication Prior to Visit: Nursing, Physician Subjective: Slight delayed responses, agreeable to therapy session Pain: General Pain Documentation (Adult, OB, Peds) Presence of Pain: complains of pain/discomfort Pain Location: headache DVPRS (Defense and Veterans Pain Rating Scale) DVPRS: Rest: 8- severe pain DVPRS: Activity: 8- severe pain Home Setting Residence: Inmate Number of stairs to enter home: 0 Number of stairs in home: 0 Mobility Equipment Available: none used ADL Equipment Available: none Previous Level of Function Prior level ADL Overview: Independent with all ADLs Bed Mobility/Transfers: independent Ambulation Skills: independent Assistive Device: none used Level of Ambulation: community IADL History IADLs: independent Objective/Observation: Vitals/Vitals Responses to Treatment: VSS throughout EOB/OOB activity Patient Vitals for the past 2 hrs: Temp Pulse Resp BP MAP (mmHg) BP Method BP Location BP Position SpO2 O2 Device 10/03/23 1343 -- -- -- -- 76 mmHg -- -- -- -- -- 10/03/23 1344 -- -- -- -- -- -- -- -- -- room air 10/03/23 1350 99.9 F (37.7 C) 103 (!) 29 (!) 133/91 108 mmHg Automatic Right arm Sitting -- -- 10/03/23 1400 100 F (37.8 C) 94 22 111/66 83 mmHg -- -- -- 97 % -- Vision Screen Currently wearing corrective lenses: No Clinical Observations: denies acute change Speech Speech: no gross deficits noted Successful Methods (Communication Strategies): verbal speech Hearing Hearing: no gross deficits noted Cognition Overall Cognitive Status: (at risk) Arousal/Alertness: Lethargic Orientation Level: Oriented to person, Oriented to place, Oriented to time Following Commands: Follows one step commands with increased time, Follows one step commands with repetition Safety Judgment: Decreased awareness of need for safety Awareness of Errors: Assistance required to correct errors made Deficits: Decreased awareness of deficits Attention Span: Attends with cues to redirect Memory: Decreased recall of recent events Problem Solving: Assistance required to generate solutions, Assistance required to implement solutions ADLs: ADL Anticipated Performance (ADLs not directly observed this session): Eating, Grooming, Bathing, LE Dressing, Toileting Eating Assistance: Independent Eating Location: chair Grooming Assistance: Stand by Grooming Location: edge of bed Grooming Deficit: Activity tolerance, Generalized weakness, Increased time to complete, Brushing hair Grooming Skilled Rationale (Verbal/Tactile/Visual/Demonstrati on): Cues for increased safety, Supervision, Setup Bathing Assistance: Minimal Bathing Location: seated on shower chair UE Dressing Assistance: Minimal UE Dressing Location: edge of bed UE Dressing Deficit: Activity tolerance, Generalized weakness, Balance, Thread RUE, Thread LUE, Pull around back UE Dressing Skilled Rationale (Verbal/Tactile/Visual/Demonstrati on): Setup, Cues for increased safety, Supervision, Facilitate postural control LE Dressing Assistance: Minimal LE Dressing Location: seated in chair Toilet Assistance: Minimal Toileting Location: toilet Extremity Assessments: RUE Assessment RUE Assessment: Within Functional Limits LUE Assessment LUE Assessment: Within Functional Limits Balance: Sitting Balance Static Sitting-Level of Assistance: Standby Dynamic Sitting-Level of Assistance: Contact guard Skilled Rationale: Positioning, Cues for increased safety Sitting Balance Skilled Intervention/Details: Cues to scoot hips to EOB, mild retropulsive lean, able to correct with cues Standing Balance Static Standing-Level of Assistance: Minimum assistance Dynamic Standing-Level of Assistance: Minimum assistance Standing-Balance Support: Bilateral hand held assist Skilled Rationale: Positioning, Hand placement, Verbal cues, Cues for increased safety Standing Balance Skilled Intervention/Details: Cues for full upright posture, weight shifting to facilitate steps towards HOB. Neuro: Sensation Overall Sensation: Intact Gross Coordination Gross Coordination: bilat UE intact Fine Motor Coordination Additional Documentation: (WFL for basic self care) Skin and Edema: Mobility Assessment: Supine to Sit Mobility Mcdonough Level: Supine->Sit: stand-by assist Bed Features/Set-up: Supine->Sit: Head of bed elevated Skilled Rationale: Positioning, Verbal cues, Hand placement, Cues for increased safety Skilled Intervention/Details: Supine->Sit: Increased time/effort Sit to Supine Mobility Mcdonough Level: Sit->Supine: minimum assist (75% patient effort) Bed Features/Set-up: Sit->Supine: Head of bed elevated Skilled Rationale: Positioning, Hand placement, Verbal cues, Cues for increased safety Transfer Assessment: Sit to Stand Transfer Mcdonough Level: Sit->Stand: minimum assist (75% patient effort) Assistive Device: Sit->Stand: hand held assist Skilled Rationale: Positioning, Hand placement, Verbal cues, Tactile cues, Full extension to upright positioning/posture Stand to Sit Transfer Mcdonough Level: Stand->Sit: minimum assist (75% patient effort) Assistive Device: Stand->Sit: hand held assist Skilled Rationale: Positioning, Hand placement, Controlled descent for sitting, Cues for increased safety Functional Mobility: Outcome Score(s): CURRENT [facility] Daily Activity Inpatient Short Form Putting on/Taking Off Lower Body Clothin - A Little Assistance Bathin - A Little Assistance Toiletin - A Little Assistance Putting on/Taking Off Upper Body Clothin - A Little Assistance Groomin - A Little Assistance Eatin - No Assistance CURRENT [facility] Activity Raw Score: 19 CURRENT -[facility] Activity Functional Limitation/Modifier: 42.80% Currently Impaired in Daily Activity - CK Interventions: Assessment & Plan: Patient was admitted for intentional valproic overdose, encephalopathy, acute hypoxic respiratory failure and seen for therapy evaluation related to ADL independnece and safety within endurance, balance deficits. Exam findings include impairments in: attention, balance, endurance, strength, transfers. These impairments contribute to occupational performance limitations including bathing, grooming, dressing, toileting, functional mobility, ADL transfers. The following factors impact the plan of care: No past medical history on file. Patient will benefit from skilled occupational therapy to address these impairments, occupational performance limitations, and participation restrictions. Patient's rehab potential is: good. Planned Therapy Interventions (OT Eval): ADL retraining, balance training, IADL retraining, bed mobility training, functional activity tolerance, transfer training Patient Instruction/Education this session: Learners: Patient Education provided: Role of this discipline, Activity outside of therapy Teaching method: Verbal Education/Instruction Learner response: Needs review Learning preferences: Auditory Learning considerations: Cognition Plan for next session: OOB ADL independence, standing balance Acute OT Goals Plan of Care by Leanna Walter OT at 10/03/2023 1:42 PM Version 1 of 1 Problem: OT - ADLs Goal: Toileting - Patient will complete toileting task with modified independence and adaptive equipment as needed for improved ability to safely complete self-care activities. Outcome: Ongoing Goal: Bathing - Patient will perform full body bathing routine with modified independence while standing for improved ability to complete self-care activities Outcome: Ongoing Problem: OT - Balance Goal: Balance - Standing - Patient will perform 10 minutes of functional task in standing with modified independence and good balance to promote safety and improved balance required for self-care activities. Outcome: Ongoing Problem: OT - Endurance Goal: Endurance Functional Mobility - Patient will complete distance needed for common household mobility with no greater than 1 rest breaks for improved tolerance to safely complete I/ADL's Outcome: Ongoing OT treatment consisted of the following to work and progress towards the above goal(s): OT Evaluation and Treatment Time OT Evaluation (Moderate) Time Entry: 18 Evaluating Therapist: Leanna Walter OT Additional Details: OT Co-Eval/Treatment Information Co-evaluation/co-treatment performed?: Yes, simultaneous billable skilled care was necessary due to medical complexity and functional deficits Other discipline: PT Rationale for need to co-eval/treat: postural control OT Evaluation Complexity Occupational Profile and Client History: Moderate - expanded history Assessment of Occupational Performance: Moderate (3-5 performance deficits) Clinical Decision/Performance Deficits: Moderate (detailed assessments w/several treatment options) Time In: 1342 Time Out: 1400 Total Visit Time: 18 minutes Total Treatment Time (skilled, billable minutes): 18 minutes PPE used during patient interaction: facemask, gloves Patient location at end of session: bed with head of bed elevated, lines intact Alarms on at end of session: none altered Needs in reach. Upon discontinuation of Acute Care Occupational Therapy Services or patient discharge from the hospital this note represents the current Occupational Therapy Discharge Summary. Respiratory Status Update: Ava Khan has been liberated from mechanical ventilation. Recent Vitals and Breath Sounds: Blood pressure 120/74, pulse 100, temperature 101.1 F (38.4 C), temperature source Bladder, resp. rate 18, height 1.753 m (5' 9), weight 117 kg (257 lb 15 oz), SpO2 95%. Respiratory Plan of Care: Encourage IS a/w C&DB. Optimize oxygenation. The patients respiratory plan of care was updated by Tim Pelayo RCP 10/03/2023 1:38 PM CRITICAL CARE ATTENDING NOTE I personally saw and examined Ava Khan today. INTERVAL HISTORY: I reviewed Ava Khan's events from the last 12-24 hours. More awake and alert this morning and following commands. Proceeded to extubate to room air. Doing well post extubation. She had a fever this morning, 101.5F Ok to discontinue levocarnitine per poison control. Ventilator: Oxygen Therapy O2 Sat (%): 95 % O2 Device: room air Oxygen Concentration (%): 100 Drips: Vital high protein 30 mL/hr at 10/03/23 0912 PHYSICAL EXAM: BP 120/74 (BP Location: Right arm, BP Position: Lying) Pulse 100 Temp 101.1 F (38.4 C) (Bladder) Resp 18 Ht 1.753 m (5' 9) Wt 117 kg (257 lb 15 oz) SpO2 95% BMI 38.09 kg/m GENERAL: no distress NEURO: awake, alert EYES: PERRL ENT: moist mucosa CV: RRR, pulses present, capillary refill ok LUNGS: diminished anteriorly ABDOMEN: not distended MSK: no edema SKIN: no rashes DIAGNOSTIC RESULTS/PROCEDURES: I have reviewed the imaging and laboratory studies in IS. WBC/Hgb/Hct/Plts: 10.01/11.8/36.9/183 (10/02 0000) Bun/Creat/Cl/CO2/Glucose: 10/0.63/113/22/80 (10/02 0000) ASSESSMENT/PLAN: Ava Khan is a 28 y.o. female who is critically ill with the following active problems: Acute hypoxic respiratory failure requiring intubation and MV for airway protection. Extubated 10/03/23 Overdose of valproic acid leading to above- serum levels much lower today Acute metabolic encephalopathy- improved Undifferentiated shock- resolved History of generalized seizure disorder History of depression Plan: HOB elevation, aspiration precautions, bedside swallow evaluation Neurology consult to provide guidance on anti epileptics. Seizure precautions Continue to monitor fever curve. If febrile, repeat x ray and cultures given possible aspiration at the time of overdose. Replete electrolytes Carefully neuro monitoring DVT and GI prophylaxis I spent 34 minutes in the intensive care unit providing critical care services to Ava Khan today independent of procedures and other care providers. My time managing this critically ill patient included review of interval history, laboratories, radiology and consultation reports; performing a physical examination; discussing the patient with the multi-disciplinary team and managing life sustaining therapies to prevent imminent clinical deterioration as outlined above. Emir Salinas MD Timber Fellerbody fitter Interventional Pulmonary and Critical Care Medicine Respiratory Therapy Assessment / Plan of Care Nut Process Helper Overnight Night Events / Updates: Weaned her down to 21% overnight. Will continue to wean when able. Will attempt to SBT today. ETT placement / Trach Size: 8.0 @ 24 Breath Sounds: diminished Current Orders: Vent Current Ventilator Settings: AC PRVC 400, 22, 21%, +6 CRITICAL CARE ATTENDING NOTE I personally saw and examined Ava Khan today. INTERVAL HISTORY: I reviewed Ava Khan's events from the last 12-24 hours. At the time of rounds, she is intubated MV. Her valproic acid levels are trending down and so does her ammonia. Ventilator: Oxygen Therapy O2 Sat (%): 98 % O2 Device: ventilator (mechanical ventilation) Oxygen Concentration (%): 25 Drips: Lactated ringers 125 mL/hr at 10/02/231705 norepinephrine 0.04 mcg/kg/min (10/02/231705) Propofol 45 mcg/kg/min (10/02/231705) Vital high protein 10 mL/hr at 10/02/231705 PHYSICAL EXAM: BP 127/58 Pulse 75 Temp 99.1 F (37.3 C) (Bladder) Resp 22 Wt 117 kg (257 lb 15 oz) SpO2 98% GENERAL: no distress NEURO: sedated EYES: PERRL ENT: ETT in place CV: RRR, pulses present, capillary refill ok LUNGS: diminished anteriorly ABDOMEN: not distended MSK: no edema SKIN: no rashes DIAGNOSTIC RESULTS/PROCEDURES: I have reviewed the imaging and laboratory studies in [facility]. WBC/Hgb/Hct/Plts: 8.89/14.4/42.7/263 (09/30 2332-10/01 1017) Bun/Creat/Cl/CO2/Glucose: 9/0.84/117/23/84 (10/01 1409) Ptt/Pt/Inr: 27.0/14.2/1.1 (10/01 3004) ASSESSMENT/PLAN: Ava Khan is a 28 y.o. female who is critically ill with the following active problems: Acute hypoxic respiratory failure requiring intubation and MV for airway protection Overdose of valproic acid leading to above Acute metabolic encephalopathy Undifferentiated shock- resolving Generalized seizure disorder History of depression Plan: Continue MV with lung protective strategy. Sedation Prn. Obtain EEG today Continue IV fluids for today and trend CK, ammonia and valproic acid levels wean off levophed Continue levocarinitine. Poison control has been contacted Monitor UOP and kidney function closely, avoid nephrotoxic agents. Replete electrolytes Carefully neuro monitoring DVT and GI prophylaxis I spent 38 minutes in the intensive care unit providing critical care services to Ava Khan today independent of procedures and other care providers. My time managing this critically ill patient included review of interval history, laboratories, radiology and consultation reports; performing a physical examination; discussing the patient with the multi-disciplinary team and managing life sustaining therapies to prevent imminent clinical deterioration as outlined above. Emir Salinas MD [employer] Fellerbody fitter Interventional Pulmonary and Critical Care Medicine Department of Pharmacy Admission Medication Reconciliation Note Patient: Ava Khan Room/Bed: 1034/A I have reviewed the patient's home medication list with the following sources [place] [facility] ([facility]). The home medication list status is: complete. All changes to the home medication list have been updated in [facility]. Updated WORK CHECKER Med List: Prior to Admission Medications Prescriptions Divalproex [address] tablet EC/DR Sig: Take 3 tablets by mouth daily. Divalproex [address] Sig: Take 2 tablets by mouth at bedtime. Facility-Administered Medications: None Added to Home Medications: Divalproex DR 750 mg every morning and 1000 mg every evening Please feel free to contact me with any further questions. Name: Bennett Savage RPH Phone #: [phone] Date/Time: 10/02/2023 5:41 PM Time Spent: 10 minutes NUTRITION CONSULT Nutrition Recommendations and Plan of Care: 1. Initiate Vital High Protein at 10 ml/hr; increase by 10 ml every 4 hours to goal rate of 30 ml/hr Goal rate will provide 720 kcal (6 kcal/kg), 63 g pro (1.0 g pro/kg IBW) and 602 mL free water 2. Will add 2 packets of Prosource TF TID for an additional 180 kcal and 66 g protein 3. Propofol providing an additional 924 kcal/d- monitor sedation regimen and adjust TF as needed When propofol is off, increase TF rate to Vital High Protein at 60 ml/hr and discontinue Prosource 4. Additional free water flush per primary - suggest a minimum of 30 mL every 4 hours to maintain tube patency 5. Bowel regimen per primary team 6. RD will continue to follow --------- Per HPI: Ava Khan is a 28 y.o. female inmate who presents from OSH with concern for depakote overdose. Past History No past medical history on file. No past surgical history on file. Nutrition History Pt seen from outside the room this morning. Unable to obtain history from patient as she is intubated and no family present at time of visit. Per discussion on MICU rounds, spot EEG. Poison control assisting with depakote OD treatment. Monitor for cerebral edema. Keep sedated at least for today; consider weaning tomorrow. Current Diet Orders Procedures DIET NPO with meds Standing Status: Standing Number of Occurrences: 1 Order Specific Question: NPO Meds: Answer: with meds Height/Weight Evaluation Ht: 5' 8/172.72 cm Wt: 257#/116.6 kg IBW: 140#/63.63 kg %IBW: 183% BMI: 39.1 kg/(m^2) *height obtain from Inmate Facesheet (media tab) 10/02/23 Weight History: no recent weight history on file- pt supposedly lost 16 lbs in 1 day (5.9% change) per medical record Wt Readings from Last 50 Encounters: 10/02/23 116.6 kg (257 lb) 10/01/23 124.2 kg (273 lb 12.8 oz) 04/30/20 125.4 kg (276 lb 6.4 oz) Tmax: 37.9 BP: 127/58 Pulse (Heart Rate): 96 Oxygen Therapy: room air Intake/Output: 191.8/0 Net +192 mL since admission Meds reviewed: chlorhexidine, ertapenem, famotidine, levocarnitine Continuous: levophed, propofol at 35 ml/hr (924 kcal/d) Labs Reviewed: WBC/Hgb/Hct/Plts: 8.89/14.4/42.7/283 (10/01 2331) Na/K+/Phos/Mg/Ca: 148/4.1/4.1/2.1/9.0 (10/01 333) Bun/Creat/Cl/CO2/Glucose: 4/0.79/113/18/108 (10/01 333-10/01 338) PE: Resp: intubated GI: NG tube in place; 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 Skin: Sonido Score: 14 Extremities: no edema Nutrition Focused Physical Exam: Deferred due to intubated / sedated Estimated Nutrition Needs Wt used: 116.6 kg - ABW; 63.63 kg - IBW EEN (kcal/d): 4804-9147 (11-14kcal/kg ABW) EPN (g pro/d): 1909 (2.0g/kg IBW) EFN (ml/d): 116 (30 ml/kg IBW) Assessment Malnutrition Statement Indications of Malnutrition: Unable to assess - intubated / sedated based on the AND/ASPEN Malnutrition Criteria [address], LD, [facility] Pager: [phone] documented in this encounter [facility] 10-05-2023 Plan of care note Problem: PT - General Goals Goal: Supine <-> Sit Transfers - Patient will perform supine to/from sit transfers with independence and without use of hospital bed features in order to improve functional mobility and safety. Outcome: Met Goal: Sitting Endurance/Balance - Patient will perform seated balance tasks for 15 minutes with independence and no UE support Outcome: Progressing Goal: Standing Endurance/Balance - Patient will perform standing balance tasks for 15 min with independence and without an assistive device Outcome: Progressing Goal: Ambulation - Patient will ambulate 300 feet with independence and without an assistive device to improve ability to safely navigate home and community. Outcome: Progressing [facility] 10-04-2023 Plan of care note Problem: Adult Inpatient Plan of Care Goal: Plan of Care Review Outcome: Progressing Goal: Patient-Specific Goal (Individualized) Outcome: Progressing Goal: Absence of Hospital-Acquired Illness or Injury Outcome: Progressing Goal: Optimal Comfort and Wellbeing Outcome: Progressing Goal: Readiness for Transition of Care Outcome: Progressing Problem: Overdose Goal: Optimal Coping Outcome: Progressing Goal: Absence of Bleeding Outcome: Progressing Goal: Stable Heart Rate and Rhythm Outcome: Progressing Goal: Fluid Balance Outcome: Progressing Goal: Effective Tissue Perfusion Outcome: Progressing Goal: Optimal Neurologic Function Outcome: Progressing Goal: Effective Oxygenation and Ventilation Outcome: Progressing [facility] 10-04-2023 Hospital Discharge instructions Barney Groves MD - 10/04/2023 10:[address] Saleh at corrections approved the patient to start taking Zonisamide on October 03 via phone call with medical team. Upon returning to correctional unit, please do the following: Follow up [facility] for continued constant watch. Continue taking Depakote 750mg in morning and 1000mg at bedtime Please schedule the patient to follow-up in neurology fpc clinic 4-6 weeks after discharge New medications: Start Zonisamide 200mg daily per neurology Start folic acid supplement daily per neurology Start Zoloft 25 mg daily per psychiatry Abram Riggs RN - 10/02/2023 6:03 AM EDT O2 Sat (%): [93 %-97 %] 93 % O2 Device: room air The following attachments cannot be sent through Care Everywhere.Alcohol - Drug - or Poison Ingestion (Pakistani)documented in this encounter [facility] 10-04-2023 Plan of care note Spoke with Dr. Saleh (fpc doctor) who approved zonisamide 200 mg daily that neurology started for her seizures. Care management aware and added a note for nursing to obtain a 3 day supply from inpatient pharmacy to send with her prior to discharge. Psych will evaluate and will likely start SSRI which will need to be approved as well. Neurology recommended follow-up in neurology fpc clinic 4-6 weeks after discharge. Appointment will be made after approval by fpc. She is likely discharge tomorrow if Depakote trough tonight is within therapeutic range. Care management aware. [facility] 10-04-2023 Plan of care note Problem: Adult Inpatient Plan of Care Goal: Plan of Care Review Outcome: Progressing Goal: Patient-Specific Goal (Individualized) Outcome: Progressing Goal: Absence of Hospital-Acquired Illness or Injury Outcome: Progressing Goal: Optimal Comfort and Wellbeing Outcome: Progressing Goal: Readiness for Transition of Care Outcome: Progressing Problem: Overdose Goal: Optimal Coping Outcome: Progressing Goal: Absence of Bleeding Outcome: Progressing Goal: Stable Heart Rate and Rhythm Outcome: Progressing Problem: Enteral Nutrition Goal: Absence of Aspiration Signs and Symptoms Outcome: Progressing Goal: Safe, Effective Therapy Delivery Outcome: Progressing Goal: Feeding Tolerance Outcome: Progressing [facility] 10-03-2023 Plan of care note Problem: Adult Inpatient Plan of Care Goal: Plan of Care Review Outcome: Progressing Goal: Patient-Specific Goal (Individualized) Outcome: Progressing Goal: Absence of Hospital-Acquired Illness or Injury Outcome: Progressing Goal: Optimal Comfort and Wellbeing Outcome: Progressing Goal: Readiness for Transition of Care Outcome: Progressing Problem: Mechanical Ventilation Invasive Goal: Effective Communication Outcome: Progressing Goal: Optimal Device Function Outcome: Progressing Goal: Mechanical Ventilation Liberation Outcome: Progressing Goal: Optimal Nutrition Delivery Outcome: Progressing Goal: Absence of Device-Related Skin and Tissue Injury Outcome: Progressing Goal: Absence of Ventilator-Induced Lung Injury Outcome: Progressing Problem: Overdose Goal: Optimal Coping Outcome: Progressing Goal: Absence of Bleeding Outcome: Progressing Goal: Stable Heart Rate and Rhythm Outcome: Progressing Goal: Fluid Balance Outcome: Progressing Goal: Effective Tissue Perfusion Outcome: Progressing Goal: Optimal Neurologic Function Outcome: Progressing Goal: Effective Oxygenation and Ventilation Outcome: Progressing Problem: Enteral Nutrition Goal: Absence of Aspiration Signs and Symptoms Outcome: Progressing Goal: Safe, Effective Therapy Delivery Outcome: Progressing Goal: Feeding Tolerance Outcome: Progressing Problem: PT - General Goals Goal: Supine <-> Sit Transfers - Patient will perform supine to/from sit transfers with independence and without use of hospital bed features in order to improve functional mobility and safety. Outcome: Progressing Goal: Sitting Endurance/Balance - Patient will perform seated balance tasks for 15 minutes with independence and no UE support Outcome: Progressing Goal: Standing Endurance/Balance - Patient will perform standing balance tasks for 15 min with independence and without an assistive device Outcome: Progressing Goal: Ambulation - Patient will ambulate 300 feet with independence and without an assistive device to improve ability to safely navigate home and community. Outcome: Progressing Problem: OT - ADLs Goal: Toileting - Patient will complete toileting task with modified independence and adaptive equipment as needed for improved ability to safely complete self-care activities. Outcome: Progressing Goal: Bathing - Patient will perform full body bathing routine with modified independence while standing for improved ability to complete self-care activities Outcome: Progressing Problem: OT - Balance Goal: Balance - Standing - Patient will perform 10 minutes of functional task in standing with modified independence and good balance to promote safety and improved balance required for self-care activities. Outcome: Progressing Problem: OT - Endurance Goal: Endurance Functional Mobility - Patient will complete distance needed for common household mobility with no greater than 1 rest breaks for improved tolerance to safely complete I/ADL's Outcome: Progressing [facility] 10-03-2023 Consult note Associated Order (s): IP CONSULT TO PSYCHIATRY Images from the original note were not included. PSYCHIATRY CONSULTATION 10/03/2023 Ava Khan : 1995 REQUESTING PROVIDER Rosibel Soares, SUPPLY SPECIALIST-SENIOR SOUS CHEF REASON FOR CONSULTATION Overdose on valproic acid, please evaluate for SI, psych workup. HISTORY OF PRESENT ILLNESS Ava Khan is a 28 y.o. with past psychiatric history of depression and anxiety and h/o generalized epilepsy who was transferred from [facility] after an intentional overdose of Depakote 500 mg tablets. 4 blister packs with 30 pills to each pack were found empty, but unsure if she ingested all of them. Upon arrival to the hospital, she was sedated but agitated with staff requiring PRN Ativan. Peak Depakote level was 807 and peak ammonia was 236. She was sent to the ICU and required intubation after an aspiration event. She is currently no longer intubated, but was febrile today prior to Tylenol administration. Most recent VPA level 59 and ammonia 34. She was lethargic today upon approach but cooperative with interview. She agreed she intentionally ingested the depakote in an attempt to end her life. She cites ongoing stress/grief of a sister who was murdered in 2019 and remaining sister (currently incarcerated at [facility] as well) will be released soon and move back home to [place], [place]. I just don't want to be here anymore. She endorses low mood, decreased sleep (early awakening), fatigue, hopelessness, and anhedonia for greater than 2 weeks. Pt reports h/o suicidal thoughts and struggles with depression since she was 7 years old. She has attempted suicide x2 via OD, once requiring life support while hospitalized. She has tried Prozac for 1 month and Effexor (years ago) with no noted benefit. She denies any anxiety today. Is willing to try an SSRI in the near future. At this point, pt reported feeling tired and declined continuing the conversation. Ava Khan's review of systems today is positive for problems with as above in HPI. All other systems were reviewed and are negative. PAST PSYCHIATRIC HISTORY Diagnoses: Depression, anxiety Medications: Prozac (1 month), Effexor 37.5 mg TID (was on this years ago with no benefit) Suicide attempt: Once in 2007 via overdose, once in 2012- where she attempted to overdose with alcohol requiring hospitalization on life support. Psychiatrist: Has a psychiatrist available to her at [facility]. The patient otherwise denies any previous psychiatric problems or diagnoses, inpatient or outpatient mental health care, suicide attempts, use of psychotropic medications, or any self injurious behavior. PAST MEDICAL & SURGICAL HISTORY No past medical history on file. No past surgical history on file. History of epilepsy noted. FAMILY PSYCHIATRIC HISTORY The patient otherwise denies any family history of mental illness or treatment, psychiatric hospitalizations, suicide attempts, or substance problems. SOCIAL HISTORY Living: Home is in [place], [place] but currently in [facility] Legal: [place] - has 15 months left on her sentence and will be released in 2024 Support: Sister who is also currently in [facility] Children: Son SUBSTANCE USE HISTORY According to the patient chart, she has no history on file for tobacco use. She has no history on file for alcohol use. She has no history on file for drug use. ALLERGIES She has No Known Allergies. MEDICATIONS Current Scheduled Medications: Divalproex (DEPAKOTE) tablet EC/DR 750 mg, 750 mg, QAM And Divalproex (DEPAKOTE) tablet EC/DR 1,000 mg, 1,000 mg, QHS Folic acid (FOLVITE) tablet 1 mg, 1 mg, Daily Heparin injection 5,000 Units, 5,000 Units, Q8H zonisamide (ZONEGRAN) capsule 200 mg, 200 mg, Daily Current PRN Medications: Acetaminophen, 650 mg, Q6H PRN Calcium Gluconate, 2 g, As directed PRN Or calcium gluconate, 4 g, As directed PRN Ibuprofen, 400 mg, Q6H PRN magnesium sulfate, 4 g, As directed PRN potassium chloride, 20 mEq, As directed PRN Or Potassium chloride, 20 mEq, As directed PRN Or Potassium Bicarb-Citric Acid, 20 mEq, As directed PRN Or potassium chloride, 10 mEq, As directed PRN Sodium chloride 0.9%, 250 mL, PRN sodium phosphate, 30 mmol, As directed PRN Or sodium phosphate, 45 mmol, As directed PRN RESULTS/DATA REVIEW Labs and imaging have been reviewed. Recent Results (from the past 24 hour(s)) VALPROIC ACID, TOTAL Collection Time: 10/02/23 6:17 PM Result Value Ref Range Valproic Acid 106 Therapeutic Range: 50-120 mcg/mL mcg/mL AMMONIA Collection Time: 10/02/23 6:17 PM Result Value Ref Range Ammonia 56 (H) 6 - 47 umol/L COMPREHENSIVE METABOLIC PANEL Collection Time: 10/02/23 6:17 PM Result Value Ref Range Sodium 148 (H) 135 - 145 mmol/L Potassium 3.6 3.5 - 5.0 mmol/L Chloride 114 (H) 98 - 108 mmol/L BUN 10 7 - 25 mg/dL Creatinine 0.79 0.50 - 1.20 mg/dL Glucose 72 70 - 99 mg/dL Bilirubin Total 0.6 <1.5 mg/dL Albumin 3.9 3.5 - 5.0 g/dL Total Protein 6.5 6.4 - 8.3 g/dL AST 18 10 - 39 U/L ALP 33 32 - 126 U/L Calcium 7.7 (L) 8.6 - 10.5 mg/dL CO2 23 21 - 31 mmol/L ALT 21 9 - 48 U/L Bun/Crea Ratio 13 Osmolality (Calculated) 304 278 - 305 mOsm/kg Anion Gap 15 7 - 17 mmol/L eGFR, CKD-EPI, Female >90 >=60 mL/min/1.73m2 CK Collection Time: 10/02/23 6:17 PM Result Value Ref Range Creatine Kinase 185 (H) 30 - 184 U/L BILIRUBIN DIRECT Collection Time: 10/02/23 6:17 PM Result Value Ref Range Bilirubin Direct 0.1 <0.3 mg/dL URINALYSIS REFLEX TO CULTURE PERFORMABLE Collection Time: 10/02/23 6:17 PM Result Value Ref Range Color Yellow Yellow Appearance Urine Clear Clear Glucose Urine Negative Negative Ketones Urine 40 mg/dL = Moderate (A) Negative Specific [place] Urine 1.040 (H) 1.001 - 1.035 Blood Urine Negative Negative pH Urine 5.5 5.0 - 7.0 Protein Urine 30 mg/dL (A) Negative Urobilinogen Urine 1.0 E.U./dL 0.2 E.U/dL, 1.0 E.U/dL Nitrites Urine Negative Negative Leukocyte Esterase Negative Negative RBC Urine 0-2 0 - 2 /HPF WBC Urine 0 - 5 0 - 5 /HPF Squamous/Epithelial Cells 3-5/hpf = 1+ 0-2/hpf, 3-5/hpf = 1+ Bacteria ABSENT ABSENT IONIZED CALCIUM, SERUM Collection Time: 10/02/23 6:17 PM Result Value Ref Range ICA 4.38 (L) 4.60 - 5.30 mg/dL VALPROIC ACID, TOTAL Collection Time: 10/02/23 9:05 PM Result Value Ref Range Valproic Acid 77 Therapeutic Range: 50-120 mcg/mL mcg/mL AMMONIA Collection Time: 10/03/23 12:00 AM Result Value Ref Range Ammonia 44 6 - 47 umol/L VALPROIC ACID, TOTAL Collection Time: 10/03/23 12:00 AM Result Value Ref Range Valproic Acid 59 Therapeutic Range: 50-120 mcg/mL mcg/mL MAGNESIUM Collection Time: 10/03/23 12:00 AM Result Value Ref Range Magnesium 1.8 1.6 - 2.6 mg/dL PHOSPHATE, INORGANIC Collection Time: 10/03/23 12:00 AM Result Value Ref Range Phosphorous 4.5 2.2 - 4.6 mg/dL CBC AND ELECTRONIC DIFF Collection Time: 10/03/23 12:00 AM Result Value Ref Range WBC Count 10.01 3.99 - 11.19 K/uL RBC Count 4.00 3.91 - 5.04 M/uL Hemoglobin 11.8 11.4 - 15.2 g/dL Hematocrit 36.9 34.9 - 44.3 % Mean Cell Volume 92.3 79.6 - 97.7 fL Mean Cell Hgb 29.5 25.9 - 33.9 pg Mean Cell Hgb Conc 32.0 31.4 - 35.9 g/dL RBC Distribution 13.7 10.8 - 14.9 % Platelet Count 183 150 - 393 K/uL Mean Platelet Volume 12.1 8.5 - 12.2 fL DIFF STATUS Electronic Differential Segs + Bands Auto 60.7 % Immature Grans % 0.2 % Lymphocyte % Auto 30.3 % Monocyte % Auto 8.5 % Eosinophil % Auto 0.2 % Basophil % Auto 0.1 % Nucleated RBC 0.0 <=0.2 /100 WBC Segs + Bands,Absolute Auto 6.08 1.64 - 7.28 K/uL Immature Grans Absolute <0.04 <=0.08 K/uL Abs Lymph Auto 3.03 1.16 - 3.51 K/uL Abs [place] Auto 0.85 0.22 - 0.87 K/uL Abs Eos Auto <0.04 0.00 - 0.42 K/uL Abs Baso Auto <0.04 0.00 - 0.15 K/uL COMPREHENSIVE METABOLIC PANEL Collection Time: 10/03/23 12:00 AM Result Value Ref Range Sodium 148 (H) 135 - 145 mmol/L Potassium 3.1 (L) 3.5 - 5.0 mmol/L Chloride 113 (H) 98 - 108 mmol/L BUN 10 7 - 25 mg/dL Creatinine 0.63 0.50 - 1.20 mg/dL Glucose 80 70 - 99 mg/dL Bilirubin Total 0.6 <1.5 mg/dL Albumin 3.7 3.5 - 5.0 g/dL Total Protein 6.1 (L) 6.4 - 8.3 g/dL AST 15 10 - 39 U/L ALP 30 (L) 32 - 126 U/L Calcium 7.6 (L) 8.6 - 10.5 mg/dL CO2 22 21 - 31 mmol/L ALT 16 9 - 48 U/L Bun/Crea Ratio 16 Osmolality (Calculated) 304 278 - 305 mOsm/kg Anion Gap 16 7 - 17 mmol/L eGFR, CKD-EPI, Female >90 >=60 mL/min/1.73m2 TRIGLYCERIDE Collection Time: 10/03/23 12:00 AM Result Value Ref Range Triglycerides 315 (H) <150 mg/dL CK Collection Time: 10/03/23 12:00 AM Result Value Ref Range Creatine Kinase 195 (H) 30 - 184 U/L BILIRUBIN DIRECT Collection Time: 10/03/23 12:00 AM Result Value Ref Range Bilirubin Direct 0.1 <0.3 mg/dL AMMONIA Collection Time: 10/03/23 2:59 AM Result Value Ref Range Ammonia 43 6 - 47 umol/L VALPROIC ACID, TOTAL Collection Time: 10/03/23 2:59 AM Result Value Ref Range Valproic Acid 36 Therapeutic Range: 50-120 mcg/mL mcg/mL VALPROIC ACID, TOTAL Collection Time: 10/03/23 6:23 AM Result Value Ref Range Valproic Acid 26 Therapeutic Range: 50-120 mcg/mL mcg/mL AMMONIA Collection Time: 10/03/23 6:23 AM Result Value Ref Range Ammonia 34 6 - 47 umol/L COMPREHENSIVE METABOLIC PANEL Collection Time: 10/03/23 1:24 PM Result Value Ref Range Sodium 142 135 - 145 mmol/L Potassium 3.9 3.5 - 5.0 mmol/L Chloride 112 (H) 98 - 108 mmol/L BUN 11 7 - 25 mg/dL Creatinine 0.48 (L) 0.50 - 1.20 mg/dL Glucose 95 70 - 99 mg/dL Bilirubin Total 0.9 <1.5 mg/dL Albumin 3.6 3.5 - 5.0 g/dL Total Protein 6.2 (L) 6.4 - 8.3 g/dL AST 13 10 - 39 U/L ALP 33 32 - 126 U/L Calcium 8.1 (L) 8.6 - 10.5 mg/dL CO2 22 21 - 31 mmol/L ALT 12 9 - 48 U/L Bun/Crea Ratio 23 Osmolality (Calculated) 295 278 - 305 mOsm/kg Anion Gap 12 7 - 17 mmol/L eGFR, CKD-EPI, Female >90 >=60 mL/min/1.73m2 BILIRUBIN DIRECT Collection Time: 10/03/23 1:24 PM Result Value Ref Range Bilirubin Direct 0.2 <0.3 mg/dL GLUCOSE POC Collection Time: 10/03/23 1:58 PM Result Value Ref Range Glucose (POC Device) 123 (H) 70 - 99 mg/dL POC Sample Type CAPBL EKG: Imaging/Studies: 10/02/23 CTH IMPRESSION: No acute intracranial findings within limits of motion artifact. 10/02/23 CT cervical spine IMPRESSION: No acute fracture or traumatic malalignment of the cervical spine. MENTAL STATUS EXAMINATION Appearance: disheveled Attention: unable to concentrate, waxing and waning Orientation: person, place, time, and situation Interview Behavior: cooperative with minor irritability Attire: hospital attire Grooming: poor Eye Contact: poor Mood: shitty Affect: consistent, depressed, and delirious Motor Activity: Asterixis with wrists. No tremors, muscle weakness, muscle rigidity/stiffness/abnormal tone, clonus, abnormal involuntary muscle movements or seizure activity were noted. Speech: slurred and soft Thought Process/Associations: linear, logical Suicidal Ideation: reports desire to not want to be alive, but denies active SI and contracts for safety in the hospital . S/P suicide attempt by drug overdose. Homicidal Ideation:denied by patient Delusions: none Hallucination: none Memory: intact Insight/Judgment: poor insight and poor judgement Impulse Control: intact Fund of Knowledge: appropriate Language/Vocabulary: fluent Pakistani Cognition: impaired 2/2 delirium Vital Signs: Blood pressure 120/74, pulse 100, temperature 101.1 F (38.4 C), temperature source Bladder, resp. rate 18, height 1.753 m (5' 9), weight 117 kg (257 lb 15 oz), SpO2 95%. IMPRESSION Acute metabolic encephalopathy / delirium Suicide attempt by VPA overdose Depressive disorder, suspect MDD Generalized Epilepsy H/o anxiety Hypernatremia Hyperammonemia, resolved Acute hypoxic respiratory failure Shock RECOMMENDATIONS Safety: SAFE-T Suicide Risk Assessment 1) Ava Khan has risk factors for suicide including history of prior suicide attempts, mood disorder (current or past), anhedonia, hopelessness, and recent trigger of sister (her source of support) who is incarcerated with her will be released soon, legal problems . Actively modifiable risk factors include mood disorder (current or past). 2) She has protective factors including ability to cope with stress. 3) She is currently expressing evidence of a potentially lethal suicide attempt . 4) After considering the intensity and nature of suicidal thoughts and behaviors from this clinical interview, including her pertinent static and dynamic/modifiable suicide risk factors, as well as the impact of current protective factors, based on clinical judgment it appears that Ava Khan is currently at high risk for suicide. Based upon this assessment, would proceed with the following to mitigate suicide risk: High risk: Continue/initiate 1:1 sitter and high risk/suicide precautions to reduce imminent suicide risk (IP HIGH RISK - SUICIDE IDEATION/ATTEMPT PRECAUTIONS) Primary team notified directly of precaution change to high risk suicide precautions at 1500. Utilize medical hold and call security if patient attempts to leave AMA. Continue to assess/screen patient for changes in suicidal thoughts, plans, behavior, and intent during daily rounding. Additional treatment planning steps to reduce suicide risk including engaging in safety planning and lethal means reduction (medication access, firearms). Assist the patient with development of a safety plan Medications: Will assess for appropriateness of SSRI once more medically stable. Pt agreeable. Can utilize Haldol 1 mg IV q6h PRN for agitation. Non-pharmacological: Non pharmacologic evidence based treatment of delirium includes repeated reorientation, promotion of good sleep hygiene, room with window, early mobilization, correction of electrolytes, maximize nutrition, use of sensory aids (glasses, hearing aids), familiar faces (family, primary nurse) and the minimization of unnecessary noise and stimuli. Regarding pharmacology, avoid anticholinergic drugs and benzodiazepines (except in cases of GABAergic withdrawal) to the extent possible. Opiates can cause and worsen delirium but untreated pain can as well. Case staffed with attending psychiatrist, Dr. Mendoza. Thank you for allowing us to participate in the care of this patient. The psychiatry consultation team is available for questions Mon-Fri from 8 AM-5 PM via pager # [phone]. The on-call university relations vice president can be reached outside these hours at the same pager number. Itzel Lee DO Psychiatry PGY2 ATTENDING ATTESTATION I saw and examined Ava Khan on 10/03/[address] Itzel Lee DO. I discussed the findings and therapeutic plan with Dr. Lee. I agree with the history, examination, and medical decision making as documented. I have edited the above report as needed to reflect my findings. Ava Khan is a 28 year old female inmate with history of generalized and intractable epilepsy (on VPA therapy) and depression who was transferred to [facility] after suspected overdose on VPA (was found altered with empty blister packs of VPA 500 mg tabs, concern she had been drinking hooch per correctional staff). Levocarnitine was initiated in the ED and she was admitted to the MICU where she required pressors and intubation, and ertapenem was administered. Ammonia and VPA levels normalized and she was extubated and weaned off of Levophed and propofol. Psychiatry was consulted for suicide risk assessment. On evaluation today, Ava Khan exhibited diminished awareness and attention consistent with hypoactive delirium. Continue high risk suicide precautions per SAFE-T. She should remain on suicide watch after discharge until further evaluation by correctional facility mental health providers. Utilize Haldol IV PRN acute agitation in setting of delirium. Will consider antidepressant treatment once delirium is improved. Will defer management of VPA for seizures to neurology consultants. I personally reviewed data including but not limited to the following: Imaging - CT Head from yesterday did not show any acute intracranial findings. I independently reviewed the images. EKG - 10/02/2023 tracing reviewed: Sinus tachycardia (106 BPM). QTc 459 ms. Labs - Chemistries with hypernatremia, hypocalcemia. LFTs with low protein, ammonia initially elevated but now normalized. CBC normal. VPA levels initially 625 (total) and >150 (free) but total VPA levels are now normal at 26. Alexandro Mendoza MD [facility] Consultation-Liaison Psychiatry [facility] Work Phone: 10-03-2023 Consult note Associated Order (s): IP CONSULT TO PSYCHIATRY Images from the original note were not included. PSYCHIATRY CONSULTATION 10/03/2023 Ava Khan : 1995 REQUESTING PROVIDER Rosibel Soares APRN-SENIOR SOUS CHEF REASON FOR CONSULTATION Overdose on valproic acid, please evaluate for SI, psych workup. HISTORY OF PRESENT ILLNESS Ava Khan is a 28 y.o. with past psychiatric history of depression and anxiety and h/o generalized epilepsy who was transferred from [facility] after an intentional overdose of Depakote 500 mg tablets. 4 blister packs with 30 pills to each pack were found empty, but unsure if she ingested all of them. Upon arrival to the hospital, she was sedated but agitated with staff requiring PRN Ativan. Peak Depakote level was 807 and peak ammonia was 236. She was sent to the ICU and required intubation after an aspiration event. She is currently no longer intubated, but was febrile today prior to Tylenol administration. Most recent VPA level 59 and ammonia 34. She was lethargic today upon approach but cooperative with interview. She agreed she intentionally ingested the depakote in an attempt to end her life. She cites ongoing stress/grief of a sister who was murdered in 2019 and remaining sister (currently incarcerated at [facility] as well) will be released soon and move back home to [place], [place]. I just don't want to be here anymore. She endorses low mood, decreased sleep (early awakening), fatigue, hopelessness, and anhedonia for greater than 2 weeks. Pt reports h/o suicidal thoughts and struggles with depression since she was 7 years old. She has attempted suicide x2 via OD, once requiring life support while hospitalized. She has tried Prozac for 1 month and Effexor (years ago) with no noted benefit. She denies any anxiety today. Is willing to try an SSRI in the near future. At this point, pt reported feeling tired and declined continuing the conversation. Ava Khan's review of systems today is positive for problems with as above in HPI. All other systems were reviewed and are negative. PAST PSYCHIATRIC HISTORY Diagnoses: Depression, anxiety Medications: Prozac (1 month), Effexor 37.5 mg TID (was on this years ago with no benefit) Suicide attempt: Once in 2007 via overdose, once in 2012- where she attempted to overdose with alcohol requiring hospitalization on life support. Psychiatrist: Has a psychiatrist available to her at [facility]. The patient otherwise denies any previous psychiatric problems or diagnoses, inpatient or outpatient mental health care, suicide attempts, use of psychotropic medications, or any self injurious behavior. PAST MEDICAL & SURGICAL HISTORY No past medical history on file. No past surgical history on file. History of epilepsy noted. FAMILY PSYCHIATRIC HISTORY The patient otherwise denies any family history of mental illness or treatment, psychiatric hospitalizations, suicide attempts, or substance problems. SOCIAL HISTORY Living: Home is in [place], [place] but currently in [facility] Legal: [place] - has 15 months left on her sentence and will be released in 2024 Support: Sister who is also currently in [facility] Children: Son SUBSTANCE USE HISTORY According to the patient chart, she has no history on file for tobacco use. She has no history on file for alcohol use. She has no history on file for drug use. ALLERGIES She has No Known Allergies. MEDICATIONS Current Scheduled Medications: Divalproex (DEPAKOTE) tablet EC/DR 750 mg, 750 mg, QAM And Divalproex (DEPAKOTE) tablet EC/DR 1,000 mg, 1,000 mg, QHS Folic acid (FOLVITE) tablet 1 mg, 1 mg, Daily Heparin injection 5,000 Units, 5,000 Units, Q8H zonisamide (ZONEGRAN) capsule 200 mg, 200 mg, Daily Current PRN Medications: Acetaminophen, 650 mg, Q6H PRN Calcium Gluconate, 2 g, As directed PRN Or calcium gluconate, 4 g, As directed PRN Ibuprofen, 400 mg, Q6H PRN magnesium sulfate, 4 g, As directed PRN potassium chloride, 20 mEq, As directed PRN Or Potassium chloride, 20 mEq, As directed PRN Or Potassium Bicarb-Citric Acid, 20 mEq, As directed PRN Or potassium chloride, 10 mEq, As directed PRN Sodium chloride 0.9%, 250 mL, PRN sodium phosphate, 30 mmol, As directed PRN Or sodium phosphate, 45 mmol, As directed PRN RESULTS/DATA REVIEW Labs and imaging have been reviewed. Recent Results (from the past 24 hour(s)) VALPROIC ACID, TOTAL Collection Time: 10/02/23 6:17 PM Result Value Ref Range Valproic Acid 106 Therapeutic Range: 50-120 mcg/mL mcg/mL AMMONIA Collection Time: 10/02/23 6:17 PM Result Value Ref Range Ammonia 56 (H) 6 - 47 umol/L COMPREHENSIVE METABOLIC PANEL Collection Time: 10/02/23 6:17 PM Result Value Ref Range Sodium 148 (H) 135 - 145 mmol/L Potassium 3.6 3.5 - 5.0 mmol/L Chloride 114 (H) 98 - 108 mmol/L BUN 10 7 - 25 mg/dL Creatinine 0.79 0.50 - 1.20 mg/dL Glucose 72 70 - 99 mg/dL Bilirubin Total 0.6 <1.5 mg/dL Albumin 3.9 3.5 - 5.0 g/dL Total Protein 6.5 6.4 - 8.3 g/dL AST 18 10 - 39 U/L ALP 33 32 - 126 U/L Calcium 7.7 (L) 8.6 - 10.5 mg/dL CO2 23 21 - 31 mmol/L ALT 21 9 - 48 U/L Bun/Crea Ratio 13 Osmolality (Calculated) 304 278 - 305 mOsm/kg Anion Gap 15 7 - 17 mmol/L eGFR, CKD-EPI, Female >90 >=60 mL/min/1.73m2 CK Collection Time: 10/02/23 6:17 PM Result Value Ref Range Creatine Kinase 185 (H) 30 - 184 U/L BILIRUBIN DIRECT Collection Time: 10/02/23 6:17 PM Result Value Ref Range Bilirubin Direct 0.1 <0.3 mg/dL URINALYSIS REFLEX TO CULTURE PERFORMABLE Collection Time: 10/02/23 6:17 PM Result Value Ref Range Color Yellow Yellow Appearance Urine Clear Clear Glucose Urine Negative Negative Ketones Urine 40 mg/dL = Moderate (A) Negative Specific [place] Urine 1.040 (H) 1.001 - 1.035 Blood Urine Negative Negative pH Urine 5.5 5.0 - 7.0 Protein Urine 30 mg/dL (A) Negative Urobilinogen Urine 1.0 E.U./dL 0.2 E.U/dL, 1.0 E.U/dL Nitrites Urine Negative Negative Leukocyte Esterase Negative Negative RBC Urine 0-2 0 - 2 /HPF WBC Urine 0 - 5 0 - 5 /HPF Squamous/Epithelial Cells 3-5/hpf = 1+ 0-2/hpf, 3-5/hpf = 1+ Bacteria ABSENT ABSENT IONIZED CALCIUM, SERUM Collection Time: 10/02/23 6:17 PM Result Value Ref Range ICA 4.38 (L) 4.60 - 5.30 mg/dL VALPROIC ACID, TOTAL Collection Time: 10/02/23 9:05 PM Result Value Ref Range Valproic Acid 77 Therapeutic Range: 50-120 mcg/mL mcg/mL AMMONIA Collection Time: 10/03/23 12:00 AM Result Value Ref Range Ammonia 44 6 - 47 umol/L VALPROIC ACID, TOTAL Collection Time: 10/03/23 12:00 AM Result Value Ref Range Valproic Acid 59 Therapeutic Range: 50-120 mcg/mL mcg/mL MAGNESIUM Collection Time: 10/03/23 12:00 AM Result Value Ref Range Magnesium 1.8 1.6 - 2.6 mg/dL PHOSPHATE, INORGANIC Collection Time: 10/03/23 12:00 AM Result Value Ref Range Phosphorous 4.5 2.2 - 4.6 mg/dL CBC AND ELECTRONIC DIFF Collection Time: 10/03/23 12:00 AM Result Value Ref Range WBC Count 10.01 3.99 - 11.19 K/uL RBC Count 4.00 3.91 - 5.04 M/uL Hemoglobin 11.8 11.4 - 15.2 g/dL Hematocrit 36.9 34.9 - 44.3 % Mean Cell Volume 92.3 79.6 - 97.7 fL Mean Cell Hgb 29.5 25.9 - 33.9 pg Mean Cell Hgb Conc 32.0 31.4 - 35.9 g/dL RBC Distribution 13.7 10.8 - 14.9 % Platelet Count 183 150 - 393 K/uL Mean Platelet Volume 12.1 8.5 - 12.2 fL DIFF STATUS Electronic Differential Segs + Bands Auto 60.7 % Immature Grans % 0.2 % Lymphocyte % Auto 30.3 % Monocyte % Auto 8.5 % Eosinophil % Auto 0.2 % Basophil % Auto 0.1 % Nucleated RBC 0.0 <=0.2 /100 WBC Segs + Bands,Absolute Auto 6.08 1.64 - 7.28 K/uL Immature Grans Absolute <0.04 <=0.08 K/uL Abs Lymph Auto 3.03 1.16 - 3.51 K/uL Abs Pinal Auto 0.85 0.22 - 0.87 K/uL Abs Eos Auto <0.04 0.00 - 0.42 K/uL Abs Baso Auto <0.04 0.00 - 0.15 K/uL COMPREHENSIVE METABOLIC PANEL Collection Time: 10/03/23 12:00 AM Result Value Ref Range Sodium 148 (H) 135 - 145 mmol/L Potassium 3.1 (L) 3.5 - 5.0 mmol/L Chloride 113 (H) 98 - 108 mmol/L BUN 10 7 - 25 mg/dL Creatinine 0.63 0.50 - 1.20 mg/dL Glucose 80 70 - 99 mg/dL Bilirubin Total 0.6 <1.5 mg/dL Albumin 3.7 3.5 - 5.0 g/dL Total Protein 6.1 (L) 6.4 - 8.3 g/dL AST 15 10 - 39 U/L ALP 30 (L) 32 - 126 U/L Calcium 7.6 (L) 8.6 - 10.5 mg/dL CO2 22 21 - 31 mmol/L ALT 16 9 - 48 U/L Bun/Crea Ratio 16 Osmolality (Calculated) 304 278 - 305 mOsm/kg Anion Gap 16 7 - 17 mmol/L eGFR, CKD-EPI, Female >90 >=60 mL/min/1.73m2 TRIGLYCERIDE Collection Time: 10/03/23 12:00 AM Result Value Ref Range Triglycerides 315 (H) <150 mg/dL CK Collection Time: 10/03/23 12:00 AM Result Value Ref Range Creatine Kinase 195 (H) 30 - 184 U/L BILIRUBIN DIRECT Collection Time: 10/03/23 12:00 AM Result Value Ref Range Bilirubin Direct 0.1 <0.3 mg/dL AMMONIA Collection Time: 10/03/23 2:59 AM Result Value Ref Range Ammonia 43 6 - 47 umol/L VALPROIC ACID, TOTAL Collection Time: 10/03/23 2:59 AM Result Value Ref Range Valproic Acid 36 Therapeutic Range: 50-120 mcg/mL mcg/mL VALPROIC ACID, TOTAL Collection Time: 10/03/23 6:23 AM Result Value Ref Range Valproic Acid 26 Therapeutic Range: 50-120 mcg/mL mcg/mL AMMONIA Collection Time: 10/03/23 6:23 AM Result Value Ref Range Ammonia 34 6 - 47 umol/L COMPREHENSIVE METABOLIC PANEL Collection Time: 10/03/23 1:24 PM Result Value Ref Range Sodium 142 135 - 145 mmol/L Potassium 3.9 3.5 - 5.0 mmol/L Chloride 112 (H) 98 - 108 mmol/L BUN 11 7 - 25 mg/dL Creatinine 0.48 (L) 0.50 - 1.20 mg/dL Glucose 95 70 - 99 mg/dL Bilirubin Total 0.9 <1.5 mg/dL Albumin 3.6 3.5 - 5.0 g/dL Total Protein 6.2 (L) 6.4 - 8.3 g/dL AST 13 10 - 39 U/L ALP 33 32 - 126 U/L Calcium 8.1 (L) 8.6 - 10.5 mg/dL CO2 22 21 - 31 mmol/L ALT 12 9 - 48 U/L Bun/Crea Ratio 23 Osmolality (Calculated) 295 278 - 305 mOsm/kg Anion Gap 12 7 - 17 mmol/L eGFR, CKD-EPI, Female >90 >=60 mL/min/1.73m2 BILIRUBIN DIRECT Collection Time: 10/03/23 1:24 PM Result Value Ref Range Bilirubin Direct 0.2 <0.3 mg/dL GLUCOSE POC Collection Time: 10/03/23 1:58 PM Result Value Ref Range Glucose (POC Device) 123 (H) 70 - 99 mg/dL POC Sample Type CAPBL EKG: Imaging/Studies: 10/02/23 CTH IMPRESSION: No acute intracranial findings within limits of motion artifact. 10/02/23 CT cervical spine IMPRESSION: No acute fracture or traumatic malalignment of the cervical spine. MENTAL STATUS EXAMINATION Appearance: disheveled Attention: unable to concentrate, waxing and waning Orientation: person, place, time, and situation Interview Behavior: cooperative with minor irritability Attire: hospital attire Grooming: poor Eye Contact: poor Mood: shitty Affect: consistent, depressed, and delirious Motor Activity: Asterixis with wrists. No tremors, muscle weakness, muscle rigidity/stiffness/abnormal tone, clonus, abnormal involuntary muscle movements or seizure activity were noted. Speech: slurred and soft Thought Process/Associations: linear, logical Suicidal Ideation: reports desire to not want to be alive, but denies active SI and contracts for safety in the hospital . S/P suicide attempt by drug overdose. Homicidal Ideation:denied by patient Delusions: none Hallucination: none Memory: intact Insight/Judgment: poor insight and poor judgement Impulse Control: intact Fund of Knowledge: appropriate Language/Vocabulary: fluent Pakistani Cognition: impaired 2/2 delirium Vital Signs: Blood pressure 120/74, pulse 100, temperature 101.1 F (38.4 C), temperature source Bladder, resp. rate 18, height 1.753 m (5' 9), weight 117 kg (257 lb 15 oz), SpO2 95%. IMPRESSION Acute metabolic encephalopathy / delirium Suicide attempt by VPA overdose Depressive disorder, suspect MDD Generalized Epilepsy H/o anxiety Hypernatremia Hyperammonemia, resolved Acute hypoxic respiratory failure Shock RECOMMENDATIONS Safety: SAFE-T Suicide Risk Assessment 1) Ava Khan has risk factors for suicide including history of prior suicide attempts, mood disorder (current or past), anhedonia, hopelessness, and recent trigger of sister (her source of support) who is incarcerated with her will be released soon, legal problems . Actively modifiable risk factors include mood disorder (current or past). 2) She has protective factors including ability to cope with stress. 3) She is currently expressing evidence of a potentially lethal suicide attempt . 4) After considering the intensity and nature of suicidal thoughts and behaviors from this clinical interview, including her pertinent static and dynamic/modifiable suicide risk factors, as well as the impact of current protective factors, based on clinical judgment it appears that Ava Khan is currently at high risk for suicide. Based upon this assessment, would proceed with the following to mitigate suicide risk: High risk: Continue/initiate 1:1 sitter and high risk/suicide precautions to reduce imminent suicide risk (IP HIGH RISK - SUICIDE IDEATION/ATTEMPT PRECAUTIONS) Primary team notified directly of precaution change to high risk suicide precautions at 1500. Utilize medical hold and call security if patient attempts to leave AMA. Continue to assess/screen patient for changes in suicidal thoughts, plans, behavior, and intent during daily rounding. Additional treatment planning steps to reduce suicide risk including engaging in safety planning and lethal means reduction (medication access, firearms). Assist the patient with development of a safety plan Medications: Will assess for appropriateness of SSRI once more medically stable. Pt agreeable. Can utilize Haldol 1 mg IV q6h PRN for agitation. Non-pharmacological: Non pharmacologic evidence based treatment of delirium includes repeated reorientation, promotion of good sleep hygiene, room with window, early mobilization, correction of electrolytes, maximize nutrition, use of sensory aids (glasses, hearing aids), familiar faces (family, primary nurse) and the minimization of unnecessary noise and stimuli. Regarding pharmacology, avoid anticholinergic drugs and benzodiazepines (except in cases of GABAergic withdrawal) to the extent possible. Opiates can cause and worsen delirium but untreated pain can as well. Case staffed with attending psychiatrist, Dr. Mendoza. Thank you for allowing us to participate in the care of this patient. The psychiatry consultation team is available for questions Mon-Mon from 8 AM-5 PM via pager # [phone]. The on-call university relations vice president can be reached outside these hours at the same pager number. Itzel Lee DO Psychiatry PGY2 ATTENDING ATTESTATION I saw and examined Ava Khan on 10/03/[address] Itzel Lee DO. I discussed the findings and therapeutic plan with Dr. Lee. I agree with the history, examination, and medical decision making as documented. I have edited the above report as needed to reflect my findings. Ava Khan is a 28 year old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 radial artery Site selection rationale: easy to access and good bilateral circulation Patient position: HOB at 30 degree Cruzito's test normal Needle gauge: 20 Seldinger technique used. Number of Attempts: 1 Anesthesia: Local anesthesia used: no Sedation patient sedated Sedation Type: Deep Sedation medications: Fentanyl, Propofol and Midazolam Procedure stop date: 10/02/2023 Procedure stop time: 07:35 EDT Procedure Vital Signs Monitored Post-procedure Line secured: Yes Dressing applied: Sterile Estimated blood loss (ml): 5 Post-Procedure circulation, movement, sensation: normal and unchanged I performed the procedure myself [facility] 10-02-2023 History and physical note HISTORY AND PHYSICAL MICU IDENTIFYING INFORMATION Ava Khan MR# [id number] 10/02/2023 CHIEF COMPLAINT Depakote overdose HISTORY OF PRESENT ILLNESS Ava Khan is a 28 y.o. inmate with a history of generalized convulsive epilepsy with intractable epilepsy (was on VPA 500/1000 and Zonisamide 200mg daily) and depression who presented as a transfer from OSH with concern for depakote overdose. Per record from OSH, patient was found unresponsive at around 2100 on 10/01/23. Staff found 3 empty month blister packs of Depakote (500mg) with total 90 pills. Not sure exactly how many pills that patient had been taken given per report that she might shared some with other inmates. Received ativan at OSH. Poison control has been notified and levoCarnitine was initiated in ED. On arrival to MICU, patient was trembling, on room air, lethargic and drooling with food residue in the mouth, RASS was -3 to +2, does not following command and not answer any question. Per record, she was conversational prior to admitted. One episode of vomiting on arrival. She was HDS initially and then became acutely hypotensive with SBP at 60-70's. 1L LR was given with pressure bag, levophed started and neosynephrine bolus also given. Given worsening mental status and high risk of aspiration, patient was intubated for airway protection. A-Line and CVC placed emergently. [facility] [place] has been notified and patient is going to stay full cod No past surgical history on file. No family history on file. Social History Socioeconomic History Marital status: Single Spouse name: Not on file Number of children: Not on file Years of education: Not on file Highest education level: Not on file Occupational History Not on file Tobacco Use Smoking status: Not on file Smokeless tobacco: Not on file Substance and Sexual Activity Alcohol use: Not on file Drug use: Not on file Sexual activity: Not on file Other Topics Concern Not on file Social History Narrative Not on file Social Determinants of Health Financial Resource Strain: Not on file Food Insecurity: Patient Unable To Answer (10/02/2023) Hunger Vital Sign Worried About Running Out of Food in the Last Year: Patient unable to answer Ran Out of Food in the Last Year: Patient unable to answer Transportation Needs: Patient Unable To Answer (10/02/2023) PRAPARE - Transportation Lack of Transportation (Medical): Patient unable to answer Lack of Transportation (Non-Medical): Patient unable to answer Physical Activity: Not on file Stress: Not on file Social Connections: Not on file Intimate Partner Violence: Unknown (10/02/2023) Humiliation, Afraid, Rape, and Kick questionnaire Fear of Current or Ex-Partner: Patient unable to answer Emotionally Abused: Not on file Physically Abused: Not on file Sexually Abused: Not on file Housing Stability: Patient Unable To Answer (10/02/2023) Housing Stability Vital Sign Unable to Pay for Housing in the Last Year: Patient unable to answer Number of Places Lived in the Last Year: Not on file Unstable Housing in the Last Year: Patient unable to answer Allergies: No Known Allergies Medication Reconciliation done? No d/t , No list and patient is intubated Home Medications: None Current Medications: chlorhexidine 15 mL Mouth/Throat Q12H faMOTIdine 20 mg Per NG tube Q12H Or faMOTIdine 20 mg Oral Q12H Or famotidine (PF) 20 mg Intravenous Q12H heparin 5,000 Units Subcutaneous Q8H levOCARNitine (CARNITOR) 1,700 mg in Sodium chloride 0.9%, with overfill 118.5 mL (total volume) IVPB 15 mg/kg Intravenous Q4H Midazolam HCl (PF) Water liquid (free water) 30 mL Per NG tube Q4H Review of Systems Unable to review d/t altered mental status and intubated Physical Exam Temp: [98.6 F (37 C)-100.2 F (37.9 C)] 99.1 F (37.3 C) Pulse (Heart Rate): [74-122] 75 Resp Rate: [15-47] 22 BP: (61-146)/(28-88) 127/58 Arterial Line (1) BP: (83-141)/(55-77) 96/63 O2 Sat (%): [89 %-100 %] 98 % Weight: [116.6 kg (257 lb)-124.2 kg (273 lb 12.8 oz)] 117 kg (257 lb 15 oz) Intake/Output Summary (Last 24 hours) at 10/02/2023 1610 Last data filed at 10/02/2023 1417 Gross per 24 hour Intake 2509.89 ml Output 1125 ml Net 1384.89 ml Constitutional: Lying in bed, appears ill, NAD Eyes, Ears, Nose, Mouth/Throat: PERRL, no scleral icterus, no drainage noted from these orifices, ETT presented Neurologic: Deeply sedated, no focal deficits noted Chest: Clear breath sounds throughout, no wheezing noted CV: RRR, S1S2, no murmurs, rubs or gallops noted Abdomen: Soft, obese, non-tender, non-distended, active BSx4 Extremities: No edema noted, pulses palpable +2 : Yellow urine via garza catheter Skin: Warm, dry, and tattoo Psychiatric: non agitated Hematological/lymphatic: No obvious lymphadenopathy. Imaging: CXR: 10/01 1. Well-positioned endotracheal tube, with tip 4.7 cm above the marc. 2. Left IJ approach central venous catheter, with tip at the confluence of the left brachiocephalic vein/upper SVC. No pneumothorax Laboratory Data: Lab Results Component Value Date SODIUM 152 (H) 10/02/2023 SODIUM 151 (H) 10/01/2023 POTASSIUM 3.4 (L) 10/02/2023 POTASSIUM 3.7 10/01/2023 CHLORIDE 117 (H) 10/02/2023 CHLORIDE 116 (H) 10/01/2023 CO2 23 10/02/2023 CO2 20.0 (L) 10/01/2023 BUN 9 10/02/2023 BUN 4 (L) 10/01/2023 PHOSPHORUS 4.1 10/02/2023 Lab Results Component Value Date ALT 19 10/02/2023 ALT 36 10/01/2023 AST 15 10/02/2023 AST 28 10/01/2023 ALKPHOS 33 10/02/2023 ALKPHOS 56 10/01/2023 BILITOTAL 0.6 10/02/2023 BILITOTAL 0.5 10/01/2023 BILIDIRECT 0.1 10/02/2023 Lab Results Component Value Date WBC 8.89 10/01/2023 HGB 14.4 10/01/2023 HCT 42.7 10/01/2023 PLATELET 263 10/02/2023 PLATELET 283 10/01/2023 MCV 88.6 10/01/2023 I have reviewed and summarized the medical records and history as noted above in the HPI. Assessment/Plan: Ava Khan is a 28 y.o. year old female with: Valproic overdose Hyperammonemia - Posion control notified in ED, recommended - L carnitine until ammonia and depakote levels are downtrending appropriate - Ammonia every 4 hours - Depakote level every 2-3 hours - Discussed with poison control, ok to stop L carnitine when ammonia down to normal range and depakote level come down at the same time. Poison control would like to be notified before stop the drip - On admission, Ammonia 236, last check 79 and Depakote 807 and down to 426, de-escalate frequency of lab draw once down to normal - Patient is on propofol drip for now and keep it on. Concern for high risk of seizure if Depakote level down to subtherapeutic level - One dosage of ertapnem to drive pressure down - Spot EEG ordered - Plan to consult neurology tomorrow for seizure - Patient had also take Zonisamide 200 daily. Need to call [facility] to see if patient took it for seizure - Discussed nephrology earlier, given decreased Depakote level, no consult placed. However, nephrology has been examine patient and more than happy to help. Really appreciated - Need suicide precaution once extubated and consult Psychi Encephalopathy - Likely secondary to Depakote overdose, in the setting of possible aspiration - Ammonia 236 and Depakote 807 on admission. - Patient was conversational and follow commands before admitted to MICU - Spot EEG - Low threshold for CTH given high risk of brain edema, however, decreased risk given now level down trending Acute hypoxic respiratory failure - Intubated for airway protection d/t altered mental status and high risk of aspiration - Report aspirated event at OSH, however, CXR with no acute finding - Titrate down to minimal vent setting quickly - On continuous propofol for sedation with PRN fentanyl and versed - SAT/SBT Shock - Etiology unknown, likely hypovolemic d/t decreased oral intake as evidence by elevated sodium and chloride and sedation medications - Bedside US noted collapse vessels - Lactate and WBC WNL, currently, not on any antibiotics, culture sent, low threshold for antibiotics - S/p fluid resuscitation with 2 Liters LR - On levophed, pressor requirement is down trending - One dosage of ertapenem (not for infection but for overdose) - Procal sent Hypernatremia - Likely 2/2 decreased oral intake - FWF - Frequent Na follow up H/o Generalized seizure - Was on Depakote and Zonisamide (not sure if she still take zonisamide), pharmacy requested medication list from [facility], need to follow up - Per record, frequent seizure on last year - Continuous propofol for sedation - Consult neurology for seizure management tomorrow Anxiety/Depression - On KLP 0.5 mg BID, plan to resume it once get medication list from [facility] Complexity. Hypokalemia - Continue to monitor and replete. Hypernatremia - Secondary to fluid shifts. Monitor. Hypocalcemia - Continue to monitor and replete. Any conditions listed below are present on admission unless otherwise specified. .None F/E/N: No MIV/Per protocol/TFs Prophylaxis: Pepcid/Heparin Critical care mobility: PT/OT if appropriate Goals of Care: Full Code, Discussed with Warden Lawrence Lines/tubes: -ETT: 10/01 -CVC: 10/01 [facility] -Arterial Line: 10/01 Left Radial -Garza: 10/01 -NG/OG tube: 10/01 The above plan was discussed with Dr. Emir Salinas MD . He is in agreement regarding the plan of care, including medications, and consultations. The above note reflects the his recommendations. I spent 35 minutes in the intensive care unit providing critical care services to Ms. Khan today independent of procedures and other care providers. My time managing this critically ill patient included review of interval history, laboratories, radiology and consultation reports; performing a physical examination; discussing the patient with the multi-disciplinary team and managing life sustaining therapies to prevent imminent clinical deterioration, including intubation. Jazmyne Espinosa APRN-SENIOR [employer] [facility] 10-02-2023 History and physical note HISTORY AND PHYSICAL MICU IDENTIFYING INFORMATION Ava Khan MR# [id number] 10/02/2023 CHIEF COMPLAINT Depakote overdose HISTORY OF PRESENT ILLNESS Ava Khan is a 28 y.o. inmate with a history of generalized convulsive epilepsy with intractable epilepsy (was on VPA 500/1000 and Zonisamide 200mg daily) and depression who presented as a transfer from OSH with concern for depakote overdose. Per record from OSH, patient was found unresponsive at around 2100 on 10/01/23. Staff found 3 empty month blister packs of Depakote (500mg) with total 90 pills. Not sure exactly how many pills that patient had been taken given per report that she might shared some with other inmates. Received ativan at OSH. Poison control has been notified and levoCarnitine was initiated in ED. On arrival to MICU, patient was trembling, on room air, lethargic and drooling with food residue in the mouth, RASS was -3 to +2, does not following command and not answer any question. Per record, she was conversational prior to admitted. One episode of vomiting on arrival. She was HDS initially and then became acutely hypotensive with SBP at 60-70's. 1L LR was given with pressure bag, levophed started and neosynephrine bolus also given. Given worsening mental status and high risk of aspiration, patient was intubated for airway protection. A-Line and CVC placed emergently. [facility] [place] has been notified and patient is going to stay full cod No past surgical history on file. No family history on file. Social History Socioeconomic History Marital status: Single Spouse name: Not on file Number of children: Not on file Years of education: Not on file Highest education level: Not on file Occupational History Not on file Tobacco Use Smoking status: Not on file Smokeless tobacco: Not on file Substance and Sexual Activity Alcohol use: Not on file Drug use: Not on file Sexual activity: Not on file Other Topics Concern Not on file Social History Narrative Not on file Social Determinants of Health Financial Resource Strain: Not on file Food Insecurity: Patient Unable To Answer (10/02/2023) Hunger Vital Sign Worried About Running Out of Food in the Last Year: Patient unable to answer Ran Out of Food in the Last Year: Patient unable to answer Transportation Needs: Patient Unable To Answer (10/02/2023) PRAPARE - Transportation Lack of Transportation (Medical): Patient unable to answer Lack of Transportation (Non-Medical): Patient unable to answer Physical Activity: Not on file Stress: Not on file Social Connections: Not on file Intimate Partner Violence: Unknown (10/02/2023) Humiliation, Afraid, Rape, and Kick questionnaire Fear of Current or Ex-Partner: Patient unable to answer Emotionally Abused: Not on file Physically Abused: Not on file Sexually Abused: Not on file Housing Stability: Patient Unable To Answer (10/02/2023) Housing Stability Vital Sign Unable to Pay for Housing in the Last Year: Patient unable to answer Number of Places Lived in the Last Year: Not on file Unstable Housing in the Last Year: Patient unable to answer Allergies: No Known Allergies Medication Reconciliation done? No d/t , No list and patient is intubated Home Medications: None Current Medications: chlorhexidine 15 mL Mouth/Throat Q12H faMOTIdine 20 mg Per NG tube Q12H Or faMOTIdine 20 mg Oral Q12H Or famotidine (PF) 20 mg Intravenous Q12H heparin 5,000 Units Subcutaneous Q8H levOCARNitine (CARNITOR) 1,700 mg in Sodium chloride 0.9%, with overfill 118.5 mL (total volume) IVPB 15 mg/kg Intravenous Q4H Midazolam HCl (PF) Water liquid (free water) 30 mL Per NG tube Q4H Review of Systems Unable to review d/t altered mental status and intubated Physical Exam Temp: [98.6 F (37 C)-100.2 F (37.9 C)] 99.1 F (37.3 C) Pulse (Heart Rate): [74-122] 75 Resp Rate: [15-47] 22 BP: (61-146)/(28-88) 127/58 Arterial Line (1) BP: (83-141)/(55-77) 96/63 O2 Sat (%): [89 %-100 %] 98 % Weight: [116.6 kg (257 lb)-124.2 kg (273 lb 12.8 oz)] 117 kg (257 lb 15 oz) Intake/Output Summary (Last 24 hours) at 10/02/2023 1610 Last data filed at 10/02/2023 1417 Gross per 24 hour Intake 2509.89 ml Output 1125 ml Net 1384.89 ml Constitutional: Lying in bed, appears ill, NAD Eyes, Ears, Nose, Mouth/Throat: PERRL, no scleral icterus, no drainage noted from these orifices, ETT presented Neurologic: Deeply sedated, no focal deficits noted Chest: Clear breath sounds throughout, no wheezing noted CV: RRR, S1S2, no murmurs, rubs or gallops noted Abdomen: Soft, obese, non-tender, non-distended, active BSx4 Extremities: No edema noted, pulses palpable +2 : Yellow urine via garza catheter Skin: Warm, dry, and tattoo Psychiatric: non agitated Hematological/lymphatic: No obvious lymphadenopathy. Imaging: CXR: 10/01 1. Well-positioned endotracheal tube, with tip 4.7 cm above the marc. 2. Left IJ approach central venous catheter, with tip at the confluence of the left brachiocephalic vein/upper SVC. No pneumothorax Laboratory Data: Lab Results Component Value Date SODIUM 152 (H) 10/02/2023 SODIUM 151 (H) 10/01/2023 POTASSIUM 3.4 (L) 10/02/2023 POTASSIUM 3.7 10/01/2023 CHLORIDE 117 (H) 10/02/2023 CHLORIDE 116 (H) 10/01/2023 CO2 23 10/02/2023 CO2 20.0 (L) 10/01/2023 BUN 9 10/02/2023 BUN 4 (L) 10/01/2023 PHOSPHORUS 4.1 10/02/2023 Lab Results Component Value Date ALT 19 10/02/2023 ALT 36 10/01/2023 AST 15 10/02/2023 AST 28 10/01/2023 ALKPHOS 33 10/02/2023 ALKPHOS 56 10/01/2023 BILITOTAL 0.6 10/02/2023 BILITOTAL 0.5 10/01/2023 BILIDIRECT 0.1 10/02/2023 Lab Results Component Value Date WBC 8.89 10/01/2023 HGB 14.4 10/01/2023 HCT 42.7 10/01/2023 PLATELET 263 10/02/2023 PLATELET 283 10/01/2023 MCV 88.6 10/01/2023 I have reviewed and summarized the medical records and history as noted above in the HPI. Assessment/Plan: Ava Khan is a 28 y.o. year old female with: Valproic overdose Hyperammonemia - Posion control notified in ED, recommended - L carnitine until ammonia and depakote levels are downtrending appropriate - Ammonia every 4 hours - Depakote level every 2-3 hours - Discussed with poison control, ok to stop L carnitine when ammonia down to normal range and depakote level come down at the same time. Poison control would like to be notified before stop the drip - On admission, Ammonia 236, last check 79 and Depakote 807 and down to 426, de-escalate frequency of lab draw once down to normal - Patient is on propofol drip for now and keep it on. Concern for high risk of seizure if Depakote level down to subtherapeutic level - One dosage of ertapnem to drive pressure down - Spot EEG ordered - Plan to consult neurology tomorrow for seizure - Patient had also take Zonisamide 200 daily. Need to call [facility] to see if patient took it for seizure - Discussed nephrology earlier, given decreased Depakote level, no consult placed. However, nephrology has been examine patient and more than happy to help. Really appreciated - Need suicide precaution once extubated and consult Psychi Encephalopathy - Likely secondary to Depakote overdose, in the setting of possible aspiration - Ammonia 236 and Depakote 807 on admission. - Patient was conversational and follow commands before admitted to MICU - Spot EEG - Low threshold for CTH given high risk of brain edema, however, decreased risk given now level down trending Acute hypoxic respiratory failure - Intubated for airway protection d/t altered mental status and high risk of aspiration - Report aspirated event at OSH, however, CXR with no acute finding - Titrate down to minimal vent setting quickly - On continuous propofol for sedation with PRN fentanyl and versed - SAT/SBT Shock - Etiology unknown, likely hypovolemic d/t decreased oral intake as evidence by elevated sodium and chloride and sedation medications - Bedside US noted collapse vessels - Lactate and WBC WNL, currently, not on any antibiotics, culture sent, low threshold for antibiotics - S/p fluid resuscitation with 2 Liters LR - On levophed, pressor requirement is down trending - One dosage of ertapenem (not for infection but for overdose) - Procal sent Hypernatremia - Likely 2/2 decreased oral intake - FWF - Frequent Na follow up H/o Generalized seizure - Was on Depakote and Zonisamide (not sure if she still take zonisamide), pharmacy requested medication list from [facility], need to follow up - Per record, frequent seizure on last year - Continuous propofol for sedation - Consult neurology for seizure management tomorrow Anxiety/Depression - On KLP 0.5 mg BID, plan to resume it once get medication list from [facility] Complexity. Hypokalemia - Continue to monitor and replete. Hypernatremia - Secondary to fluid shifts. Monitor. Hypocalcemia - Continue to monitor and replete. Any conditions listed below are present on admission unless otherwise specified. .None F/E/N: No MIV/Per protocol/TFs Prophylaxis: Pepcid/Heparin Critical care mobility: PT/OT if appropriate Goals of Care: Full Code, Discussed with Warden Lawrence Lines/tubes: -ETT: 10/01 -CVC: 10/01 LIJ -Arterial Line: 10/01 Left Radial -Garza: 10/01 -NG/OG tube: 10/01 The above plan was discussed with Dr. Emir Salinas MD . He is in agreement regarding the plan of care, including medications, and consultations. The above note reflects the his recommendations. I spent 35 minutes in the intensive care unit providing critical care services to Ms. Khan today independent of procedures and other care providers. My time managing this critically ill patient included review of interval history, laboratories, radiology and consultation reports; performing a physical examination; discussing the patient with the multi-disciplinary team and managing life sustaining therapies to prevent imminent clinical deterioration, including intubation. Jazmyne Espinosa APRN-SENIOR SOUS CHEF documented in this encounter [facility] 10-02-2023 Plan of care note Problem: Enteral Nutrition Goal: Absence of Aspiration Signs and Symptoms Outcome: Progressing Goal: Safe, Effective Therapy Delivery Outcome: Progressing Goal: Feeding Tolerance Outcome: Progressing NUTRITION CONSULT Nutrition Recommendations and Plan of Care: 1. Initiate Vital High Protein at 10 ml/hr; increase by 10 ml every 4 hours to goal rate of 30 ml/hr Goal rate will provide 720 kcal (6 kcal/kg), 63 g pro (1.0 g pro/kg IBW) and 602 mL free water 2. Will add 2 packets of Prosource TF TID for an additional 180 kcal and 66 g protein 3. Propofol providing an additional 924 kcal/d- monitor sedation regimen and adjust TF as needed When propofol is off, increase TF rate to Vital High Protein at 60 ml/hr and discontinue Prosource 4. Additional free water flush per primary - suggest a minimum of 30 mL every 4 hours to maintain tube patency 5. Bowel regimen per primary team 6. RD will continue to follow --------- Per HPI: Ava Khan is a 28 y.o. female inmate who presents from OSH with concern for depakote overdose. Past History Past Medical History No past medical history on file. Past Surgical History No past surgical history on file. Nutrition History Pt seen from outside the room this morning. Unable to obtain history from patient as she is intubated and no family present at time of visit. Per discussion on MICU rounds, spot EEG. Poison control assisting with depakote OD treatment. Monitor for cerebral edema. Keep sedated at least for today; consider weaning tomorrow. Current Diet Orders Procedures DIET NPO with meds Standing Status: Standing Number of Occurrences: 1 Order Specific Question: NPO Meds: Answer: with meds Height/Weight Evaluation Ht: 5' 8/172.72 cm Wt: 257#/116.6 kg IBW: 140#/63.63 kg %IBW: 183% BMI: 39.1 kg/(m^2) *height obtain from Inmate Facesheet (media tab) 10/02/23 Weight History: no recent weight history on file- pt supposedly lost 16 lbs in 1 day (5.9% change) per medical record Wt Readings from Last 50 Encounters: 10/02/23 116.6 kg (257 lb) 10/01/23 124.2 kg (273 lb 12.8 oz) 04/30/20 125.4 kg (276 lb 6.4 oz) Tmax: 37.9 BP: 127/58 Pulse (Heart Rate): 96 Oxygen Therapy: room air Intake/Output: 191.8/0 Net +192 mL since admission Meds reviewed: chlorhexidine, ertapenem, famotidine, levocarnitine Continuous: levophed, propofol at 35 ml/hr (924 kcal/d) Labs Reviewed: WBC/Hgb/Hct/Plts: 8.89/14.4/42.7/283 (10/01 2331) Na/K+/Phos/Mg/Ca: 148/4.1/4.1/2.1/9.0 (10/01 333) Bun/Creat/Cl/CO2/Glucose: 4/0.79/113/18/108 (10/01 333-10/01 338) PE: Resp: intubated GI: NG tube in place; 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 Skin: Sonido Score: 14 Extremities: no edema Nutrition Focused Physical Exam: Deferred due to intubated / sedated Estimated Nutrition Needs Wt used: 116.6 kg - ABW; 63.63 kg - IBW EEN (kcal/d): 3887-8115 (11-14kcal/kg ABW) EPN (g pro/d): 1909 (2.0g/kg IBW) EFN (ml/d): 116 (30 ml/kg IBW) Assessment Malnutrition Statement Indications of Malnutrition: Unable to assess - intubated / sedated based on the AND/ASPEN Malnutrition Criteria [address], LD, [facility] Pager: #[phone] [facility] 10-02-2023 Procedure note Associated Ord er(s): PROCEDURE - INTUBATION Post-Procedure Diagnose(s): Anticonvulsant overdose, intentional self-harm, initial encounter PROCEDURE - INTUBATION Date/Time: 10/02/2023 8:13 AM Urgency: emergent Airway not difficult General Information and Staff Patient location during procedure: ICU Room: [place] Protocol The procedure was performed in an emergent situation Patient identity confirmed: arm band and hospital-assigned identification number Immediately prior to procedure a time out was called to verify the correct patient, procedure, equipment, postal support employee and site/side marked as required Indications and Patient Condition Indications for airway management: airway protection Preoxygenated: yes Patient position: supine Final Airway Details Final airway type: endotracheal airway Successful airway: ETT ETT size: 8.0 mm Cuffed: yes Endotracheal tube insertion site: oral Successful intubation technique: video laryngoscopy Video Laryngoscope: Syntensia Blade: Jeronimo Blade size: #3 Facilitating devices/methods: intubating stylet Cormack-Lehane Classification: grade IIa - partial view of glottis Placement verified by: auscultation, bronchoscopy and visualization through the cords Tube secured: 24 CM at the lips Number of attempts at approach: 1 Additional Comments Patient initially given 40 mg etomidate and 120 mg of rocuronium however, sedation and paralysis were not reached. She was given versed and an additional 50 mg of rocuronium and was intubated without complete sedation/paralysis. She was given propofol immediately after intubation. Recommended primary team discuss with pharmacy as concern IV was not functioning correctly. [facility] 10-02-2023 Plan of care note Problem: Adult Inpatient Plan of Care Goal: Plan of Care Review Outcome: Progressing Goal: Patient-Specific Goal (Individualized) Outcome: Progressing Problem: Mechanical Ventilation Invasive Goal: Absence of Device-Related Skin and Tissue Injury Outcome: Progressing Goal: Absence of Ventilator-Induced Lung Injury Outcome: Progressing Problem: Overdose Goal: Stable Heart Rate and Rhythm Outcome: Progressing Goal: Fluid Balance Outcome: Progressing [facility] 10-02-2023 Nurse Note Admission Screening for Discharge Planning Patient is here for depakote overdose. After review of chart and discussion with treatment team, Plumber Maintenance has not identified needs at this time. Patient is expected to discharge on October 03. Clinical shoe parts caser will continue to follow for care coordination and discharge planning. Patient will discharge to [facility]. Abram Riggs RN Clinical Plumber Maintenance [phone] [facility] 10-02-2023 Note Acute Coronary Syndr ome (ACS): Initial Evaluation and Management: [email or web address] [facility] 10-02-2023 Physician Emergency department Note dEPARTMENT of Emergency Medicine CHIEF COMPLAINT Overdose, Intentional HPI Ava Khan is a 28 y.o. female who presents as transfer from OSH with concern for depakote overdose. Per record from OSH, patient was found unresponsive at around 2100 on 10/01/23. Staff found 3 empty month blister packs of Depakote (500mg). She reportedly received ativan for agitation at OSH. Patient unable to provide history here do to AMS. OSH spoke with poision control who recommended repeat valproate level every 2-3hrs. REVIEW OF SYSTEMS Review of Systems unable to obtain due to AMS PAST MEDICAL HISTORY No past medical history on file. SURGICAL HISTORY No past surgical history on file. CURRENT MEDICATIONS No current facility-administered medications for this encounter. No current outpatient medications on file. ALLERGIES No Known Allergies FAMILY HISTORY No family history on file. SOCIAL HISTORY Social History Socioeconomic History Marital status: Single Spouse name: Not on file Number of children: Not on file Years of education: Not on file Highest education level: Not on file Occupational History Not on file Tobacco Use Smoking status: Not on file Smokeless tobacco: Not on file Substance and Sexual Activity Alcohol use: Not on file Drug use: Not on file Sexual activity: Not on file Other Topics Concern Not on file Social History Narrative Not on file Social Determinants of Health Financial Resource Strain: Not on file Food Insecurity: Not on file Transportation Needs: Not on file Physical Activity: Not on file Stress: Not on file Social Connections: Not on file Intimate Partner Violence: Not on file Housing Stability: Not on file PHYSICAL EXAM BP 141/87 Pulse 104 Temp 99.5 F (37.5 C) (Rectal) Resp 22 Wt 116.6 kg (257 lb) SpO2 99% Physical Exam Constitutional: Appearance: She is obese. Comments: Arousable to noxious stimuli HENT: Head: Normocephalic and atraumatic. Eyes: Conjunctiva/sclera: Conjunctivae normal. Pupils: Pupils are equal, round, and reactive to light. Cardiovascular: Rate and Rhythm: Regular rhythm. Tachycardia present. Pulses: Normal pulses. Heart sounds: Normal heart sounds. Pulmonary: Effort: Pulmonary effort is normal. Breath sounds: Normal breath sounds. No stridor. Abdominal: Palpations: Abdomen is soft. Musculoskeletal: General: No swelling or deformity. Skin: General: Skin is warm and dry. ED COURSE & MEDICAL DECISION MAKING ED Course as of 10/02/23 0525 MonOct 02, 2023 0431 Spoke with poison control, who recommended starting L-carnitine and continuing to trend depakote level and ammonia. 0457 CHM 7 - ED(!) BMP notable for hypernatremia to 148, bicarb 18, anion gap 21 0458 VENOUS BLOOD GAS PLUS LACTATE(!) VBG notable for lactate 3.6, downtrended from 4.2 at OSH. 0459 HEPATIC FUNCTION PANEL LFTs wnl 0459 ACETAMINOPHEN LEVEL APAP wnl 0459 SALICYLATE LEVEL Salicylate negative 0500 PT,INR,PTT 0500 ALCOHOL (ETHANOL),BLOOD Ethanol negative 0500 HIGH SENSITIVITY TROPONIN I - SINGLE ORDER Trop negative 0500 CK CK wnl 0502 AMMONIA(!) Repeat ammonia 236 elevated from 44. [address] scanner. Ordered Zofran 4mg Medical Decision Making Ava Khan is a 28 y.o. female who presents as transfer from OSH with concern for depakote overdose. Upon initial assessment patient is arousable only to noxious stimuli, tachycardic. Given ingestion ordered BMP, VBG, CBC, LFTs, acetaminophen, salicylate, coags, ethanol, trop, CK, ammonia. Depakote level at outside hospital was greater than 800. Spoke with poison control who recommended starting L carnitine until ammonia and depakote levels are downtrending appropriately. Guidelines uploaded to patient's charge. Trend ammonia every 4 hours, Depakote level every 2-[address] given altered mental status and C-spine given and a chart history of fall. Order chest x-ray to evaluate for aspiration. Labs notable for We will admit to the ICU for close monitoring. Amount and/or Complexity of Data Reviewed Labs: ordered. Decision-making details documented in ED Course. Radiology: ordered. ECG/medicine tests: ordered. Risk Prescription drug management. Decision regarding hospitalization. Yonathan Merlos MD Resident 10/02/23 0653 [facility] Work Phone: 10-02-2023 Emergency department Note dEPARTMENT of Emergency Medicine CHIEF COMPLAINT Overdose, Intentional HPI Ava Khan is a 28 y.o. female who presents as transfer from OSH with concern for depakote overdose. Per record from OSH, patient was found unresponsive at around 2100 on 10/01/23. Staff found 3 empty month blister packs of Depakote (500mg). She reportedly received ativan for agitation at OSH. Patient unable to provide history here do to AMS. OSH spoke with poision control who recommended repeat valproate level every 2-3hrs. REVIEW OF SYSTEMS Review of Systems unable to obtain due to AMS PAST MEDICAL HISTORY No past medical history on file. SURGICAL HISTORY No past surgical history on file. CURRENT MEDICATIONS No current facility-administered medications for this encounter. No current outpatient medications on file. ALLERGIES No Known Allergies FAMILY HISTORY No family history on file. SOCIAL HISTORY Social History Socioeconomic History Marital status: Single Spouse name: Not on file Number of children: Not on file Years of education: Not on file Highest education level: Not on file Occupational History Not on file Tobacco Use Smoking status: Not on file Smokeless tobacco: Not on file Substance and Sexual Activity Alcohol use: Not on file Drug use: Not on file Sexual activity: Not on file Other Topics Concern Not on file Social History Narrative Not on file Social Determinants of Health Financial Resource Strain: Not on file Food Insecurity: Not on file Transportation Needs: Not on file Physical Activity: Not on file Stress: Not on file Social Connections: Not on file Intimate Partner Violence: Not on file Housing Stability: Not on file PHYSICAL EXAM BP 141/87 Pulse 104 Temp 99.5 F (37.5 C) (Rectal) Resp 22 Wt 116.6 kg (257 lb) SpO2 99% Physical Exam Constitutional: Appearance: She is obese. Comments: Arousable to noxious stimuli HENT: Head: Normocephalic and atraumatic. Eyes: Conjunctiva/sclera: Conjunctivae normal. Pupils: Pupils are equal, round, and reactive to light. Cardiovascular: Rate and Rhythm: Regular rhythm. Tachycardia present. Pulses: Normal pulses. Heart sounds: Normal heart sounds. Pulmonary: Effort: Pulmonary effort is normal. Breath sounds: Normal breath sounds. No stridor. Abdominal: Palpations: Abdomen is soft. Musculoskeletal: General: No swelling or deformity. Skin: General: Skin is warm and dry. ED COURSE & MEDICAL DECISION MAKING ED Course as of 10/02/23 0525 Mon Oct 02, 2023 0431 Spoke with poison control, who recommended starting L-carnitine and continuing to trend depakote level and ammonia. 0457 CHM 7 - ED(!) BMP notable for hypernatremia to 148, bicarb 18, anion gap 21 0458 VENOUS BLOOD GAS PLUS LACTATE(!) VBG notable for lactate 3.6, downtrended from 4.2 at OSH. 0459 HEPATIC FUNCTION PANEL LFTs wnl 0459 ACETAMINOPHEN LEVEL APAP wnl 0459 SALICYLATE LEVEL Salicylate negative 0500 PT,INR,PTT 0500 ALCOHOL (ETHANOL),BLOOD Ethanol negative 0500 HIGH SENSITIVITY TROPONIN I - SINGLE ORDER Trop negative 0500 CK CK wnl 0502 AMMONIA(!) Repeat ammonia 236 elevated from 44. [address] scanner. Ordered Zofran 4mg Medical Decision Making Ava Khan is a 28 y.o. female who presents as transfer from OSH with concern for depakote overdose. Upon initial assessment patient is arousable only to noxious stimuli, tachycardic. Given ingestion ordered BMP, VBG, CBC, LFTs, acetaminophen, salicylate, coags, ethanol, trop, CK, ammonia. Depakote level at outside hospital was greater than 800. Spoke with poison control who recommended starting L carnitine until ammonia and depakote levels are downtrending appropriately. Guidelines uploaded to patient's charge. Trend ammonia every 4 hours, Depakote level every 2-[address] given altered mental status and C-spine given and a chart history of fall. Order chest x-ray to evaluate for aspiration. Labs notable for We will admit to the ICU for close monitoring. Amount and/or Complexity of Data Reviewed Labs: ordered. Decision-making details documented in ED Course. Radiology: ordered. ECG/medicine tests: ordered. Risk Prescription drug management. Decision regarding hospitalization. Yonathan Merlos MD Resident 10/02/23 0653 On Arrival pt. Appears to be sedated and drowsy, with minimal stimulation she is resistant to bedside care. No snoring or sounds of soft tissue occlusion of the upper airway. She was found to be incontinent of urine and on her menses. Pt. Cleaned and bed changed. With female staff at bedside straight cath conducted for a clean urine sample. Padding in place to protect her from injury with contact from the stretcher rails. Pt. Placed on the monitor, and glucose 108 mg/dL. She felt warm to the touch and has signs of sun burn to the skin however rectal temp was 99.5. Intentional Over dose x 6 hours. Pt. Is a transfer from an OSH where according to EMS she presented from an intentional overdose of her Depakote. For EMS she was sedated but resisting medical care and had received ativan at the previous hospital. According to the airconditioning drafting officer at the bedside, pt. Is allowed to keep her anti-epileptic medications with her while in the facility. She was found unresponsive at 2100 in 10/01/23. The staff found 3 empty month blister packs of her Depakote (500 mg). On arrival pt. Is resistant but very sleepy. documented in this encounter [facility] 10-02-2023 Emergency department Note On Arrival pt. Appears to be sedated and drowsy, with minimal stimulation she is resistant to bedside care. No snoring or sounds of soft tissue occlusion of the upper airway. She was found to be incontinent of urine and on her menses. Pt. Cleaned and bed changed. With female staff at bedside straight cath conducted for a clean urine sample. Padding in place to protect her from injury with contact from the stretcher rails. Pt. Placed on the monitor, and glucose 108 mg/dL. She felt warm to the touch and has signs of sun burn to the skin however rectal temp was 99.5. [facility] 10-02-2023 Emergency department Note Intentional Over dose x 6 hours. Pt. Is a transfer from an OSH where according to EMS she presented from an intentional overdose of her Depakote. For EMS she was sedated but resisting medical care and had received ativan at the previous hospital. According to the airconditioning drafting officer at the bedside, pt. Is allowed to keep her anti-epileptic medications with her while in the facility. She was found unresponsive at 2100 in 10/01/23. The staff found 3 empty month blister packs of her Depakote (500 mg). On arrival pt. Is resistant but very sleepy. [facility] 10-02-2023 Emergency department Note Pt calming after above med given [employer] Phone: 10-02-2023 Emergency department Note Pt calming after above med given Remedicated as per Dr order for pt being restless and pulling at medical equipment. Critical called per lab of Lactate 4.2 - provider aware Blood redrawn from IV site, 10cc waste prior. IV flushed without difficulty. Pt remains resting quietly. Chief Complaint Patient presents with Drug Overdose Ava Khan is a 28 y.o. female who presented with complaints of a potential overdose. Patient was from [facility]. Patient with a history of seizure on Depakote, unfortunately a medication list was not provided from the facility. Patient was unable to participate in history. Just repeating oh my God over and over again. Unknown ingestion time. Reportedly patient was altered at 9:30 p.m. and medics were called to the unit. They found for empty blister packs of Depakote, 500 mg. Each blister pack contain 30 pills. The patient was on Depakote in his he was prescribed to her and if she was taking as prescribed then there should have been approximately 70 pills left in the blister packs. No other history able to be provided at this time. No reports of trauma. Unclear if it was a suicide attempt. Guard at bedside states that there is a possibility that the patient was drinking hooch. No past medical history on file. No past surgical history on file. No family history on file. Not on File Social History Socioeconomic History Marital status: Single Spouse name: Not on file Number of children: Not on file Years of education: Not on file Highest education level: Not on file Occupational History Not on file Tobacco Use Smoking status: Not on file Smokeless tobacco: Not on file Substance and Sexual Activity Alcohol use: Not on file Drug use: Not on file Sexual activity: Not on file Other Topics Concern Not on file Social History Narrative Not on file Social Determinants of Health Financial Resource Strain: Not on file Food Insecurity: Not on file Transportation Needs: Not on file Physical Activity: Not on file Stress: Not on file Social Connections: Not on file Intimate Partner Violence: Not on file Housing Stability: Not on file Review of Systems Unable to perform ROS: Mental status change Physical Exam ED Triage Vitals Enc Vitals Group BP Pulse Resp Temp Temp src SpO2 Weight Height Head Circumference Peak Flow Pain Score Pain Loc Pain Edu? Excl. in GC? Vitals: 10/02/23 0100 10/02/23 0118 10/02/23 0157 10/02/23 0200 BP: 106/63 114/62 Pulse: 122 105 118 Resp: (!) 26 (!) 25 Temp: SpO2: 94% 100% 95% 98% Weight: Physical Exam Vitals and nursing note reviewed. Constitutional: Appearance: She is obese. She is not toxic-appearing or diaphoretic. Comments: Alert, intermittently follows commands, not oriented to person, time place, not answering questions HENT: Head: Normocephalic and atraumatic. Mouth/Throat: Mouth: Mucous membranes are moist. Eyes: Extraocular Movements: Extraocular movements intact. Pupils: Pupils are equal, round, and reactive to light. Cardiovascular: Rate and Rhythm: Regular rhythm. Tachycardia present. Pulmonary: Effort: Pulmonary effort is normal. No respiratory distress. Breath sounds: Normal breath sounds. No wheezing, rhonchi or rales. Abdominal: General: Abdomen is flat. There is no distension. Tenderness: There is no abdominal tenderness. There is no guarding or rebound. Musculoskeletal: General: No swelling or tenderness. Normal range of motion. Cervical back: Normal range of motion and neck supple. Skin: General: Skin is warm. Capillary Refill: Capillary refill takes less than 2 seconds. Neurological: General: No focal deficit present. Results for orders placed or performed during the hospital encounter of 10/01/23 CBC, EDIF, PLATELET Result Value Ref Range WBC (WHITE BLOOD COUNT) 8.89 3.21 - 9.43 10*3/uL RBC 4.82 3.80 - 5.10 10*6/uL HEMOGLOBIN (HGB) 14.4 11.8 - 14.8 g/dL HEMATOCRIT (HCT) 42.7 36.5 - 44.6 % MEAN CELL VOLUME 88.6 82.4 - 99.1 fL Mean Cell HGB 29.9 26.7 - 32.9 pg MEAN CELL HGB CONCENTRATION 33.7 31.5 - 34.1 g/dL PLATELET COUNT 283 179 - 382 10*3/uL RBC DISTRIBUTION 13.1 11.6 - 14.4 % MEAN PLATELET VOLUME 12.3 (H) 9.1 - 11.4 fL NEUTROPHIL % 51.6 36.0 - 66.0 % LYMPHOCYTES % 43.8 24.0 - 44.0 % MONOCYTE % 3.3 (L) 5.0 - 11.0 % EOSINOPHILS 0.8 0.0 - 4.0 % BASOPHIL % 0.3 0.0 - 2.0 % NEUTROPHILS (ABSOLUTE) 4.59 2.00 - 7.50 10*3/uL LYMPHOCYTES, ABSOLUTE 3.89 1.00 - 4.80 10*3/uL MONOCYTES, ABSOLUTE 0.29 0.20 - 1.20 10*3/uL EOSINOPHILS, ABSOLUTE 0.07 0.00 - 0.50 10*3/uL ABSOLUTE BASOPHIL COUNT 0.03 0.00 - 0.20 10*3/uL RBC, NUCLEATED 0.0 % RBC, NUCLEATED, ABSOLUTE 0.00 0.00 - 0.50 COMPREHENSIVE METABOLIC PANEL Result Value Ref Range SODIUM 151 (H) 136 - 145 mmol/L POTASSIUM 3.7 3.5 - 5.0 mmol/L CHLORIDE 116 (H) 100 - 110 mmol/L CARBON DIOXIDE (CO2) 20.0 (L) 22.0 - 30.0 mm/Hg Glucose 113 (H) 70 - 100 mg/dL BUN 4 (L) 7 - 22 mg/dL CREATININE SERUM 0.64 (L) 0.70 - 1.20 mg/dL CALCIUM 9.6 8.4 - 10.2 mg/dL PROTEIN, TOTAL 7.9 6.0 - 8.2 g/dL Albumin 4.3 3.5 - 5.0 g/dL ALT 36 9 - 52 U/L ALKALINE PHOSPHATASE 56 38 - 126 U/L AST 28 14 - 56 U/L BILIRUBIN, TOTAL 0.5 0.2 - 1.2 mg/dL ANION GAP 15.2 mmol/L ESTIMATED GFR, NON AMER 116 >60 mL/min/1.73 m2 LIPASE Result Value Ref Range LIPASE 150 23 - 300 U/L BETA HCG, QUAL, BLOOD Result Value Ref Range BETA HCG (QUAL), SERUM NEGATIVE ACETAMINOPHEN LEVEL Result Value Ref Range ACETAMINOPHEN <10.0 10.0 - 30.0 ug/mL SALICYLATE LEVEL Result Value Ref Range SALICYLATE <1.0 (L) 2.0 - 20.0 mg/dL ALCOHOL (ETHANOL),BLOOD Result Value Ref Range ALCOHOL, ETHYL, SERUM <10 <10 mg/dL TROPONIN Result Value Ref Range TROPONIN <0.012 0.012 - 0.120 ng/mL MAGNESIUM Result Value Ref Range MAGNESIUM 2.2 1.7 - 2.2 mg/dL AMMONIA Result Value Ref Range AMMONIA 44.0 (H) 9.0 - 30.0 umol/L VALPROIC ACID, TOTAL Result Value Ref Range VALPROIC ACID 807.6 (HH) 50.0 - 100.0 ug/mL LACTATE, BLOOD Result Value Ref Range LACTATE, PLASMA 4.2 (HH) 0.7 - 2.0 mmol/L No orders to display EKG Sinus tachycardia with a rate of 121, normal axis, nonspecific T-wave findings, no STEMI criteria, QTC 471 ED Course Upon my evaluation, this patient had high probability of imminent or life-threatening deterioration due to which required my direct attention, intervention and personal management Total minutes of critical care time spent in direct and indirect care of this critically ill patient excludes separately billable procedures. This time includes airway assessment and stabilization if indicated, ordering and interpretation of laboratory data, ordering and interpretation of radiologic tests, discussion with consultants/patient's family, and monitoring for potential decompensation. Interventions were performed as documented. MEDICAL DECISION MAKING External documents reviewed: nursing notes this encounter, patient medical records available in [facility] locally or with care everywhere Medical Decision Making Patient was a 28-year-old female who presents with concerns for overdose, possibly from Depakote. On exam patient is alert, intermittently following commands, not answering questions. We will plan for basic labs, test, Tylenol, aspirin, ethanol level, EKG. Also plan for serum osmol given possibly of fpc related to alcohol he was sent on clear what this is made of. We will plan for Depakote level. I did not ask the guarded bedside to get a list of the patient's other home medications. We will plan for discussion with poison control. ED Course as of 10/02/23 0236 Time: 10/01 9 Comment: The medical list faxed from [facility] just shows that patient is on Depakote, does not appear long acting Time: 10/01 16 Comment: Spoke with poison control, they recommend supportive care, agree with all labs including ammonia and would recommend valproic acid level every 2-3 hours. Time: 10/02 31 Value: AMMONIA(!): 44.0 Comment: (Reviewed) Time: 10/02 47 Value: VALPROIC ACID(!!): 807.6 Comment: (Reviewed) Time: 10/01 49 Comment: Discuss case with [facility], who is agreeable and accepted patient to the emergency department by Patient remains tachycardic but no significant change in mentation. She did have another episode increased agitation was given another 1 mg of Ativan. Briefly hypotensive with systolics in the 80s, started on IV fluids and did improve to systolic of 114. Time: 10/01 214 Comment: Patient transported to [facility] by [facility] Amount and/or Complexity of Data Reviewed Labs: ordered. Decision-making details documented in ED Course. ECG/medicine tests: ordered. Risk Prescription drug management. Shared decision making: Discussed plan of care and follow up plan with patient Code status if being admitted: 1. Overdose of undetermined intent, initial encounter Ana Diaz DO 10/02/23 0236 Pt to ED from [facility] c/o possible OD - at 2130 were called to unit for pt w AMS - found 4 empy blisters of depakot 500mg per [facility] RN - each blister 30 pills - however other inmates are thought to have been taking her depakot as well. If she was taking as prescribed - 50/120 should have been missing documented in this encounter [employer] [employer] Phone: 10-02-2023 Emergency department Note Remedicated as per Dr order for pt being restless and pulling at medical equipment. [employer] [employer] Phone: 10-02-2023 Emergency department Note Critical called per lab of Lactate 4.2 - provider aware [facility] 10-01-2023 Emergency department Note Blood redrawn from IV site, 10cc waste prior. IV flushed without difficulty. Pt remains resting quietly. [employer] [employer] Phone: 10-01-2023 Physician Emergency department Note Chief Complaint Patient presents with Drug Overdose Ava Khan is a 28 y.o. female who presented with complaints of a potential overdose. Patient was from [facility]. Patient with a history of seizure on Depakote, unfortunately a medication list was not provided from the facility. Patient was unable to participate in history. Just repeating oh my God over and over again. Unknown ingestion time. Reportedly patient was altered at 9:30 p.m. and medics were called to the unit. They found for empty blister packs of Depakote, 500 mg. Each blister pack contain 30 pills. The patient was on Depakote in his he was prescribed to her and if she was taking as prescribed then there should have been approximately 70 pills left in the blister packs. No other history able to be provided at this time. No reports of trauma. Unclear if it was a suicide attempt. Guard at bedside states that there is a possibility that the patient was drinking hooch. No past medical history on file. No past surgical history on file. No family history on file. Not on File Social History Socioeconomic History Marital status: Single Spouse name: Not on file Number of children: Not on file Years of education: Not on file Highest education level: Not on file Occupational History Not on file Tobacco Use Smoking status: Not on file Smokeless tobacco: Not on file Substance and Sexual Activity Alcohol use: Not on file Drug use: Not on file Sexual activity: Not on file Other Topics Concern Not on file Social History Narrative Not on file Social Determinants of Health Financial Resource Strain: Not on file Food Insecurity: Not on file Transportation Needs: Not on file Physical Activity: Not on file Stress: Not on file Social Connections: Not on file Intimate Partner Violence: Not on file Housing Stability: Not on file Review of Systems Unable to perform ROS: Mental status change Physical Exam ED Triage Vitals Enc Vitals Group BP Pulse Resp Temp Temp src SpO2 Weight Height Head Circumference Peak Flow Pain Score Pain Loc Pain Edu? Excl. in GC? Vitals: 10/02/23 0100 10/02/23 0118 10/02/23 0157 10/02/23 0200 BP: 106/63 114/62 Pulse: 122 105 118 Resp: (!) 26 (!) 25 Temp: SpO2: 94% 100% 95% 98% Weight: Physical Exam Vitals and nursing note reviewed. Constitutional: Appearance: She is obese. She is not toxic-appearing or diaphoretic. Comments: Alert, intermittently follows commands, not oriented to person, time place, not answering questions HENT: Head: Normocephalic and atraumatic. Mouth/Throat: Mouth: Mucous membranes are moist. Eyes: Extraocular Movements: Extraocular movements intact. Pupils: Pupils are equal, round, and reactive to light. Cardiovascular: Rate and Rhythm: Regular rhythm. Tachycardia present. Pulmonary: Effort: Pulmonary effort is normal. No respiratory distress. Breath sounds: Normal breath sounds. No wheezing, rhonchi or rales. Abdominal: General: Abdomen is flat. There is no distension. Tenderness: There is no abdominal tenderness. There is no guarding or rebound. Musculoskeletal: General: No swelling or tenderness. Normal range of motion. Cervical back: Normal range of motion and neck supple. Skin: General: Skin is warm. Capillary Refill: Capillary refill takes less than 2 seconds. Neurological: General: No focal deficit present. Results for orders placed or performed during the hospital encounter of 10/01/23 CBC, EDIF, PLATELET Result Value Ref Range WBC (WHITE BLOOD COUNT) 8.89 3.21 - 9.43 10*3/uL RBC 4.82 3.80 - 5.10 10*6/uL HEMOGLOBIN (HGB) 14.4 11.8 - 14.8 g/dL HEMATOCRIT (HCT) 42.7 36.5 - 44.6 % MEAN CELL VOLUME 88.6 82.4 - 99.1 fL Mean Cell HGB 29.9 26.7 - 32.9 pg MEAN CELL HGB CONCENTRATION 33.7 31.5 - 34.1 g/dL PLATELET COUNT 283 179 - 382 10*3/uL RBC DISTRIBUTION 13.1 11.6 - 14.4 % MEAN PLATELET VOLUME 12.3 (H) 9.1 - 11.4 fL NEUTROPHIL % 51.6 36.0 - 66.0 % LYMPHOCYTES % 43.8 24.0 - 44.0 % MONOCYTE % 3.3 (L) 5.0 - 11.0 % EOSINOPHILS 0.8 0.0 - 4.0 % BASOPHIL % 0.3 0.0 - 2.0 % NEUTROPHILS (ABSOLUTE) 4.59 2.00 - 7.50 10*3/uL LYMPHOCYTES, ABSOLUTE 3.89 1.00 - 4.80 10*3/uL MONOCYTES, ABSOLUTE 0.29 0.20 - 1.20 10*3/uL EOSINOPHILS, ABSOLUTE 0.07 0.00 - 0.50 10*3/uL ABSOLUTE BASOPHIL COUNT 0.03 0.00 - 0.20 10*3/uL RBC, NUCLEATED 0.0 % RBC, NUCLEATED, ABSOLUTE 0.00 0.00 - 0.50 COMPREHENSIVE METABOLIC PANEL Result Value Ref Range SODIUM 151 (H) 136 - 145 mmol/L POTASSIUM 3.7 3.5 - 5.0 mmol/L CHLORIDE 116 (H) 100 - 110 mmol/L CARBON DIOXIDE (CO2) 20.0 (L) 22.0 - 30.0 mm/Hg Glucose 113 (H) 70 - 100 mg/dL BUN 4 (L) 7 - 22 mg/dL CREATININE SERUM 0.64 (L) 0.70 - 1.20 mg/dL CALCIUM 9.6 8.4 - 10.2 mg/dL PROTEIN, TOTAL 7.9 6.0 - 8.2 g/dL Albumin 4.3 3.5 - 5.0 g/dL ALT 36 9 - 52 U/L ALKALINE PHOSPHATASE 56 38 - 126 U/L AST 28 14 - 56 U/L BILIRUBIN, TOTAL 0.5 0.2 - 1.2 mg/dL ANION GAP 15.2 mmol/L ESTIMATED GFR, NON AMER 116 >60 mL/min/1.73 m2 LIPASE Result Value Ref Range LIPASE 150 23 - 300 U/L BETA HCG, QUAL, BLOOD Result Value Ref Range BETA HCG (QUAL), SERUM NEGATIVE ACETAMINOPHEN LEVEL Result Value Ref Range ACETAMINOPHEN <10.0 10.0 - 30.0 ug/mL SALICYLATE LEVEL Result Value Ref Range SALICYLATE <1.0 (L) 2.0 - 20.0 mg/dL ALCOHOL (ETHANOL),BLOOD Result Value Ref Range ALCOHOL, ETHYL, SERUM <10 <10 mg/dL TROPONIN Result Value Ref Range TROPONIN <0.012 0.012 - 0.120 ng/mL MAGNESIUM Result Value Ref Range MAGNESIUM 2.2 1.7 - 2.2 mg/dL AMMONIA Result Value Ref Range AMMONIA 44.0 (H) 9.0 - 30.0 umol/L VALPROIC ACID, TOTAL Result Value Ref Range VALPROIC ACID 807.6 (HH) 50.0 - 100.0 ug/mL LACTATE, BLOOD Result Value Ref Range LACTATE, PLASMA 4.2 (HH) 0.7 - 2.0 mmol/L No orders to display EKG Sinus tachycardia with a rate of 121, normal axis, nonspecific T-wave findings, no STEMI criteria, QTC 471 ED Course Upon my evaluation, this patient had high probability of imminent or life-threatening deterioration due to which required my direct attention, intervention and personal management Total minutes of critical care time spent in direct and indirect care of this critically ill patient excludes separately billable procedures. This time includes airway assessment and stabilization if indicated, ordering and interpretation of laboratory data, ordering and interpretation of radiologic tests, discussion with consultants/patient's family, and monitoring for potential decompensation. Interventions were performed as documented. MEDICAL DECISION MAKING External documents reviewed: nursing notes this encounter, patient medical records available in [employer] locally or with care everywhere Medical Decision Making Patient was a 28-year-old female who presents with concerns for overdose, possibly from Depakote. On exam patient is alert, intermittently following commands, not answering questions. We will plan for basic labs, test, Tylenol, aspirin, ethanol level, EKG. Also plan for serum osmol given possibly of fpc related to alcohol he was sent on clear what this is made of. We will plan for Depakote level. I did not ask the guarded bedside to get a list of the patient's other home medications. We will plan for discussion with poison control. ED Course as of 10/02/236 Time: 10/01 9 Comment: The medical list faxed from [facility] just shows that patient is on Depakote, does not appear long acting Time: 10/01 16 Comment: Spoke with poison control, they recommend supportive care, agree with all labs including ammonia and would recommend valproic acid level every 2-3 hours. Time: 10/02 31 Value: AMMONIA(!): 44.0 Comment: (Reviewed) Time: 10/02 47 Value: VALPROIC ACID(!!): 807.6 Comment: (Reviewed) Time: 10/01 49 Comment: Discuss case with [facility], who is agreeable and accepted patient to the emergency department by Patient remains tachycardic but no significant change in mentation. She did have another episode increased agitation was given another 1 mg of Ativan. Briefly hypotensive with systolics in the 80s, started on IV fluids and did improve to systolic of 114. Time: 10/01 214 Comment: Patient transported to [facility] by [facility] Amount and/or Complexity of Data Reviewed Labs: ordered. Decision-making details documented in ED Course. ECG/medicine tests: ordered. Risk Prescription drug management. Shared decision making: Discussed plan of care and follow up plan with patient Code status if being admitted: 1. Overdose of undetermined intent, initial encounter Ana Diaz DO 10/02/23 0236 [employer] Phone: 10-01-2023 Emergency department Note Pt to ED from [facility] c/o possible OD - at 2130 were called to unit for pt w AMS - found 4 empy blisters of depakot 500mg per [facility] RN - each blister 30 pills - however other inmates are thought to have been taking her depakot as well. If she was taking as prescribed - 50/120 should have been missing [employer] Phone: 04-17-2023 Miscellaneous Notes Patient/Research Subject Name: Ava Khan : 1995 IRB [id number]. Creating a Healthy L.I.F.E: Lifestyle Interventions For Epilepsy Client Liaison: Memo Anton MD, Flat Knitter Helper: Zaira Waters Research Coordinator and Email: [email or web address] Left voicemail message to introduce the study. Provided phone number, , for Ava Aiden Khan to contact Zaira Waters Research Coordinator, to further discuss the study. Zaira Waters Research Coordinator documented in this encounter [facility] 04-14-2023 Miscellaneous Notes Patient/Research Subject Name: Ava Khan : 1995 IRB [id number]. Creating a Healthy L.I.F.E: Lifestyle Interventions For Epilepsy Client Liaison: Memo Anton MD, Flat Knitter Helper: Zaira Waters Research Coordinator and Email: [email or web address] Left voicemail message to introduce the study. Provided phone number, , for Ava Aiden Khan to contact Zaira Waters Research Coordinator, to further discuss the study. Zaira Waters Research Coordinator documented in this encounter [facility] 03-01-2023 Miscellaneous Notes Patient/Research Subject Name: Ava Khan : 1995 IRB [id number]. Creating a Healthy L.I.F.E: Lifestyle Interventions For Epilepsy Client Liaison: Memo Anton MD, Flat Knitter Helper: Guillermina Walker Research Coordinator and Email: [email or web address] Called to talk to Ava Khan. Could not my leave name and phone number for patient to call back. I will try calling another day. Guillermina Walker Research Coordinator [phone] documented in this encounter [facility] 09-26-2022 Note HNO ID: [id number] Author: Laila Yuen PA-C Service: ? Author Type: Physician Voice Writing Reporter Type: Progress Notes Filed: 09/26/2022 3:36 PM Note Text: [facility] Follow up for Epilepsy HISTORY OF PRESENT ILLNESS: I have communicated my name and active licensure. The patient's identity and physical location were verified at the time of this visit. Either the patient or their legal b2b sales representative has been informed of the risks and benefits of -- and alternatives to -- treatment through a remote evaluation and consents to proceed with the evaluation remotely. Ava Khan is a 27 year old RHF who is diagnosed with generalized epilepsy and depression. The last visit was 02/23/2022 with PUNEET Bradley. At this visit, patient reported about 7 GTCs in the last 2 years and the plan was to get labs drawn and continue VPA 500/1000 and ZNS 200mg daily. Levels have not been completed since 2018 Today (09/26/2022), she reports too many seizures in the last 6 months. Has had several ED visits (unable to view in Epic) Current medications are: VPA EC 500/1000 ZNS 200mg daily KLP 0.5mg- has been taking 0.5mg BID which is not how it is prescribed. She only received 10 pills per month. However, she states this greatly helps her seizures and anxiety. Used to take KLP 1mg BID back in 2012. Reports she was taken off of it when she was in fpc. Reports good compliance. Notes from 02/23/2022: She presents today for follow up.They are an established patient of Dr. Douglas and was last seen on 11/12/2019 by Lety Morin CNP. Had a longer than usual seizure in MAY 2021- lasted 10 mins, took awhile to get back to baseline after it was over. Feels that seizures have become more frequent since June 2021. No triggers aside from some stress and poor sleep. Seizure ED visit 01/26/2022 - at friends house, doesn't remember. Friends told her it was a full body convulsion seizure. Friends called EMS and she was taken to the hospital. Today (02/23/2022), about 7 seizures since last visit- all GTC seizures. Last seizure was 01/26/2022. Current medications are ZNS 200mg QAM, VPA 500/1000mg, folic acid 2mg daily. They report no side effects. Good compliance and takes them at 8am/8pm. In other health, she feels her depression and anxiety has gotten worse. She had an appointment with a local therapist but they cancelled it because they were short staffed and did not give any other referral. No longer taking Effexor. No PCP. SI -denies any at this time but has in the past. Sleep is poor- wakes up a lot, wakes up early and cannot go back to sleep. Not driving and not working. Lives with mom. No longer in a relationship. Notes from 11/12/2019 visit: Today patient reports having a seizure one every two weeks. Reports others tell her she stiffens, shakes, talks bout weird stuff, tries to get away from people. +TB, +UI. AED's: ZNS 200mg QAM VPA EC 500/1000 mg Folic acid 2mg daily Asking for KLP for her nerves. She has had a bad year with her sister being murdered. She visits with a counselor at [facility]. (No Rodriguez). . In other health, anxiety/depression Occupation: None. Her and her girlfriend live with her mother. Driving: no Mood: Fair Memory: Fair CURRENT OUTPATIENT MEDICATIONS: Current Outpatient Medications Medication Sig folic acid 1 mg tablet Take 2 tablets by mouth once daily. divalproex DR (DEPAKOTE) 500 mg EC tablet Take 1 tablet by mouth every morning AND 2 tablets every evening. clonazePAM orally disintegrating (KLONOPIN WAFER) 0.5 mg disintegrating tablet Take 1 tablet by mouth twice daily for 90 days. zonisamide (ZONEGRAN) 100 mg capsule Take 2 capsules by mouth once daily. venlafaxine (EFFEXOR) 37.5 mg tablet Take 37.5 mg by mouth three times daily. medroxyPROGESTERone (PROVERA, CYCRIN) 10 mg tablet Take 1 tablet by mouth once daily. TAKE 1 TABLET BY MOUTH ONCE DAILY. folic acid 1 mg tablet Take 2 tablets by mouth once daily. (Patient not taking: Reported on 04/30/2020 ) clonazePAM (KLONOPIN) 0.5 mg tablet Take 1 tablet by mouth daily at bedtime for 7 days. THEN STOP No current facility-administered medications for this visit. 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 [facility] 09-26-2022 History of Present illness Narrative [facility] Follow up for Epilepsy HISTORY OF PRESENT ILLNESS: I have communicated my name and active licensure. The patient's identity and physical location were verified at the time of this visit. Either the patient or their legal b2b sales representative has been informed of the risks and benefits of -- and alternatives to -- treatment through a remote evaluation and consents to proceed with the evaluation remotely. Ava Khan is a 27 year old RHF who is diagnosed with generalized epilepsy and depression. The last visit was 02/23/2022 with PUNEET Bradley. At this visit, patient reported about 7 GTCs in the last 2 years and the plan was to get labs drawn and continue VPA 500/1000 and ZNS 200mg daily. Levels have not been completed since 2018 Today (09/26/2022), she reports too many seizures in the last 6 months. Has had several ED visits (unable to view in Epic) Current medications are: VPA EC 500/1000 ZNS 200mg daily KLP 0.5mg- has been taking 0.5mg BID which is not how it is prescribed. She only received 10 pills per month. However, she states this greatly helps her seizures and anxiety. Used to take KLP 1mg BID back in 2012. Reports she was taken off of it when she was in fpc. Reports good compliance. Notes from 02/23/2022: She presents today for follow up.They are an established patient of Dr. Douglas and was last seen on 11/12/2019 by Lety Morin CNP. Had a longer than usual seizure in MAY 2021- lasted 10 mins, took awhile to get back to baseline after it was over. Feels that seizures have become more frequent since June 2021. No triggers aside from some stress and poor sleep. Seizure ED visit 01/26/2022 - at friends house, doesn't remember. Friends told her it was a full body convulsion seizure. Friends called EMS and she was taken to the hospital. Today (02/23/2022), about 7 seizures since last visit- all GTC seizures. Last seizure was 01/26/2022. Current medications are ZNS 200mg QAM, VPA 500/1000mg, folic acid 2mg daily. They report no side effects. Good compliance and takes them at 8am/8pm. In other health, she feels her depression and anxiety has gotten worse. She had an appointment with a local therapist but they cancelled it because they were short staffed and did not give any other referral. No longer taking Effexor. No PCP. SI -denies any at this time but has in the past. Sleep is poor- wakes up a lot, wakes up early and cannot go back to sleep. Not driving and not working. Lives with mom. No longer in a relationship. Notes from 11/12/2019 visit: Today patient reports having a seizure one every two weeks. Reports others tell her she stiffens, shakes, talks bout weird stuff, tries to get away from people. +TB, +UI. AED's: ZNS 200mg QAM VPA EC 500/1000 mg Folic acid 2mg daily Asking for KLP for her nerves. She has had a bad year with her sister being murdered. She [facility] a [facility] [facility] (No Rodriguez). . In other health, anxiety/depression Occupation: None. Her and her girlfriend live with her mother. Driving: no Mood: Fair Memory: Fair CURRENT OUTPATIENT MEDICATIONS: Current Outpatient Medications Medication Sig folic acid 1 mg tablet Take 2 tablets by mouth once daily. divalproex DR (DEPAKOTE) 500 mg EC tablet Take 1 tablet by mouth every morning AND 2 tablets every evening. clonazePAM orally disintegrating (KLONOPIN WAFER) 0.5 mg disintegrating tablet Take 1 tablet by mouth twice daily for 90 days. zonisamide (ZONEGRAN) 100 mg capsule Take 2 capsules by mouth once daily. venlafaxine (EFFEXOR) 37.5 mg tablet Take 37.5 mg by mouth three times daily. medroxyPROGESTERone (PROVERA, CYCRIN) 10 mg tablet Take 1 tablet by mouth once daily. TAKE 1 TABLET BY MOUTH ONCE DAILY. folic acid 1 mg tablet Take 2 tablets by mouth once daily. (Patient not taking: Reported on 04/30/2020 ) clonazePAM (KLONOPIN) 0.5 mg tablet Take 1 tablet by mouth daily at bedtime for 7 days. THEN STOP No current facility-administered medications for this visit. 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, TRAMPOLINE ACCIDENT H/O suicide attempt Migraine without aura and without status migrainosus, not intractable 11/08/2017 Seizure disorder (HCC) PAST SURGICAL HISTORY Procedure Laterality Date APPENDECTOMY DELIVERY ONLY 11/01/12 , low transverse REMOVAL OF TONSILS,<12 Y/O Tonsillectomy FAMILY HISTORY Problem Relation Age of Onset Diabetes Mother Hypertension Father Cancer Maternal Grandfather THROAT Hypertension Paternal Grandmother Asthma Sister Diabetes Sister Seizures Paternal Uncle other (ADD) Sister other (Migraines) Sister EVALUATIONS: VEEG 11/08/2017 to 11/11/2017:This 4-day video EEG evaluation from 11/08/2017 to 11/11/2017 supports the diagnosis of generalized epilepsy based solely on interictal EEG findings. No typical episodes or seizures were recorded during her admission. Generalized spike and wave complexes and polyspikes were recorded, which were seen in frequently in short bursts more in the sleep state. ASSESSMENT: Ava Khan is a 26 year old female with history of intractable epilepsy. Continues with seizures. Reports she is taking ZNS and VPA. Anxious and depressed. Poor sleep due to racing thoughts. Has not been able to get in with a counselor locally. Has not had blood levels of ASMs drawn since 2018. I requested she gets her blood drawn locally [facility] and based on the results, we can adjust medications due to continued seizures. We discussed avoiding seizure triggers and the importance of medication compliance, good sleep, and healthy coping strategies for stress. I will send in a seizure rescue. Also notes she is trying to apply for disability- has forms, told her to send them in to the office for processing. PLAN: - LABS: none - Medications: -Continue VPA EC 500/1000mg - refills sent -Continue ZNS 200mg daily- refills sent -Start taking KLP 0.5mg BID. PDMP checked and no suspicious activity noted. 90 day prescription provided - Advised to keep a seizure journal and bring to next appointment. - Follow up:3 months I spent 20 minutes during this encounter counseling on her seizures, medications, seizure triggers, mental health, sleep impact on seizures, and coordination of care. Laila Yuen PA-C September 26, 2022 documented in this encounter [facility] 09-20-2022 Miscellaneous Notes Addended by: DALI LEE on: 09/20/2022 12:46 PM Modules accepted: Orders The following approved medication requests have been transmitted electronically. Requested Prescriptions Signed Prescriptions Disp Refills zonisamide (ZONEGRAN) 100 mg capsule 60 capsule 0 Sig: Take 2 capsules by mouth once daily. Authorizing Provider: DALI LEE divalproex DR (DEPAKOTE) 500 mg EC tablet 90 tablet 0 Sig: Take 1 tablet by mouth every morning AND 2 tablets every evening. Authorizing Provider: DALI LEE APRN.CNP Prescription Refill: PATIENT OUT OF MEDS Requested by: patient Please Call in Caller Contact Number: [phone] (home) Pharmacy Name: [facility] Pharmacy Number: [phone] Generic/ brand: generic 30 or 90 day supply requested: 30 Last appointment: 02/23/22 Next Appointment: 09/26/[address] Douglas Patient is out of town until 10/16/22. Left meds at home paged zenia documented in this encounter [facility] 09-16-2022 Miscellaneous Notes Patient's request for medication is as follows: Requested Prescriptions Pending Prescriptions Disp Refills clonazePAM orally disintegrating (KLONOPIN WAFER) 0.5 mg disintegrating tablet 10 tablet 0 Si tablet by mouth as needed for seizure longer than 2 mins OR more than 2 seizures in 8 hours. Max dose of 2 tablets in 24 hours. Appproved the above prescription and sent electronically to [facility] pharmacy in [place], [place]. OARRS checked and approved. Token# [id number].. Lety Morin APRN.SENIOR SOUS CHEF documented in this encounter [facility] 07-25-2022 Miscellaneous Notes The following approved medication requests have been transmitted electronically. Requested Prescriptions Signed Prescriptions Disp Refills clonazePAM orally disintegrating (KLONOPIN WAFER) 0.5 mg disintegrating tablet 10 tablet 0 Si tablet by mouth as needed for seizure longer than 2 mins OR more than 2 seizures in 8 hours. Max dose of 2 tablets in 24 hours. Authorizing Provider: LANA MCRAE APRN.SENIOR SOUS CHEF documented in this encounter [facility] 07-25-2022 Miscellaneous Notes The following approved medication requests have been transmitted electronically. Requested Prescriptions Refused Prescriptions Disp Refills clonazePAM (KLONOPIN) 0.5 mg tablet 7 tablet 0 Sig: Take 1 tablet by mouth daily at bedtime for 7 days. THEN STOP Refused By: LANA MCRAE Reason for Refusal: A Refill not appropriate Lana Mcrae APRN.SENIOR SOUS CHEF documented in this encounter [facility] 03-24-2022 Miscellaneous Notes The following approved medication requests have been transmitted electronically. Requested Prescriptions Signed Prescriptions Disp Refills clonazePAM orally disintegrating (KLONOPIN WAFER) 0.5 mg disintegrating tablet 10 tablet 0 Si tablet by mouth as needed for seizure longer than 2 mins OR more than 2 seizures in 8 hours. Max dose of 2 tablets in 24 hours. Authorizing Provider: DALI LEE APRN.CNP Prescription Refill: PT OUT OF MEDS Requested by: patient Please Call in Caller Contact Number: [phone] (home) [facility] Pharmacy Number: [phone] Generic/ brand: generic 30 or 90 day supply requested: 90 Last appointment: 02/23/22 Next Appointment: none Patient of Dr. douglas documented in this encounter [facility] 03-23-2022 Miscellaneous Notes eror documented in this encounter [facility] 03-23-2022 Miscellaneous Notes Per patient's request, Clonazepam script called to [facility] [phone] and left on pharmacy vm. documented in this encounter [facility] 02-24-2022 Miscellaneous Notes Per ZENIA request, lab requisition sent to patient's personal e-mail address Patient notified via [employer] message Shreya Rainey RN Lab requisition documented in this encounter [facility] 02-23-2022 Miscellaneous Notes The following approved medication requests have been transmitted electronically. Requested Prescriptions Refused Prescriptions Disp Refills clonazePAM orally disintegrating (KLONOPIN WAFER) 0.5 mg disintegrating tablet [Pharmacy Med Name: CLONAZEPAM 0.5 MG ODT] 10 tablet Sig: TAKE ONE TABLET BY MOUTH FOR SEIZURE LONGER THAN 2 MINS OR MORE THAN 2 SEIZURES IN 8 HOURS. MAX DOES OF 2 TABLETS IN 24 HOURS Refused By: RADHA MENDOSA Reason for Refusal: Records indicate that there is a valid prescription at the pharmacy Radha Mendosa APRN.SUDHAKAR documented in this encounter [facility] 02-23-2022 History of Present illness Narrative [facility]UAL VISIT February 23, 2022 HISTORY OF PRESENT ILLNESS: Ava Khan is a 26 year old RHF who is diagnosed with generalized epilepsy and depression. She presents today for follow up.They are an established patient of Dr. Douglas and was last seen on 11/12/2019 by Lety Morin CNP. Had a longer than usual seizure in MAY 2021- lasted 10 mins, took awhile to get back to baseline after it was over. Feels that seizures have become more frequent since June 2021. No triggers aside from some stress and poor sleep. Seizure ED visit 01/26/2022 - at friends house, doesn't remember. Friends told her it was a full body convulsion seizure. Friends called EMS and she was taken to the hospital. Today (02/23/2022), about 7 seizures since last visit- all GTC seizures. Last seizure was 01/26/2022. Current medications are ZNS 200mg QAM, VPA 500/1000mg, folic acid 2mg daily. They report no side effects. Good compliance and takes them at 8am/8pm. In other health, she feels her depression and anxiety has gotten worse. She had an appointment with a local therapist but they cancelled it because they were short staffed and did not give any other referral. No longer taking Effexor. No PCP. SI -denies any at this time but has in the past. Sleep is poor- wakes up a lot, wakes up early and cannot go back to sleep. Not driving and not working. Lives with mom. No longer in a relationship. Notes from 11/12/2019 visit: Today patient reports having a seizure one every two weeks. Reports others tell her she stiffens, shakes, talks bout weird stuff, tries to get away from people. +TB, +UI. AED's: ZNS 200mg QAM VPA EC 500/1000 mg Folic acid 2mg daily Asking for KLP for her nerves. She has had a bad year with her sister being murdered. She visits with a counselor at [facility]. (No Rodriguez). . In other health, anxiety/depression Occupation: None. Her and her girlfriend live with her mother. Driving: no Mood: Fair Memory: Fair CURRENT OUTPATIENT MEDICATIONS: Current Outpatient Medications Medication Sig divalproex DR (DEPAKOTE) 500 mg EC tablet take 1 tablet by mouth every morning and 2 tablets at bedtime folic acid 1 mg tablet take 2 tablets by mouth once daily zonisamide (ZONEGRAN) 100 mg capsule take 2 capsules by mouth once daily venlafaxine (EFFEXOR) 37.5 mg tablet Take 37.5 mg by mouth three times daily. medroxyPROGESTERone (PROVERA, CYCRIN) 10 mg tablet Take 1 tablet by mouth once daily. TAKE 1 TABLET BY MOUTH ONCE DAILY. folic acid 1 mg tablet Take 2 tablets by mouth once daily. (Patient not taking: Reported on 04/30/2020 ) clonazePAM (KLONOPIN) 0.5 mg tablet Take 1 tablet by mouth daily at bedtime for 7 days. THEN STOP No current facility-administered medications for this visit. 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, TRAMPOLINE ACCIDENT H/O suicide attempt Migraine without aura and without status migrainosus, not intractable 11/08/2017 Seizure disorder (HCC) PAST SURGICAL HISTORY Procedure Laterality Date APPENDECTOMY DELIVERY ONLY 11/01/12 , low transverse REMOVAL OF TONSILS,<12 Y/O Tonsillectomy FAMILY HISTORY Problem Relation Age of Onset Diabetes Mother Hypertension Father Cancer Maternal Grandfather THROAT Hypertension Paternal Grandmother Asthma Sister Diabetes Sister Seizures Paternal Uncle other (ADD) Sister other (Migraines) Sister EVALUATIONS: VEEG 11/08/2017 to 11/11/2017:This 4-day video EEG evaluation from 11/08/2017 to 11/11/2017 supports the diagnosis of generalized epilepsy based solely on interictal EEG findings. No typical episodes or seizures were recorded during her admission. Generalized spike and wave complexes and polyspikes were recorded, which were seen in frequently in short bursts more in the sleep state. ASSESSMENT: Ava Khan is a 26 year old female with history of intractable epilepsy. Continues with seizures. Reports she is taking ZNS and VPA. Anxious and depressed. Poor sleep due to racing thoughts. Has not been able to get in with a counselor locally. Has not had blood levels of ASMs drawn since 2018. I requested she gets her blood drawn locally [facility] and based on the results, we can adjust medications due to continued seizures. We discussed avoiding seizure triggers and the importance of medication compliance, good sleep, and healthy coping strategies for stress. I will send in a seizure rescue. Also notes she is trying to apply for disability- has forms, told her to send them in to the office for processing. PLAN: - LABS: VPA, cbc, ZNS, cmp- will send lab req to email: [email or web address] - Medications: -Continue VPA EC 500/1000mg -Continue ZNS 200mg daily -Sent in seizure rescue - KLP ODT 0.5mg PRN for seizures >2mins or more than 2 seizures in 8 hours. - Consults: psychology and sleep medicine - Follow up:3 months I spent 20 minutes during this encounter counseling on her seizures, medications, seizure triggers, mental health, sleep impact on seizures, and coordination of care. Laila Yune PA-C February 23, 2022 documented in this encounter [facility] 02-15-2022 Miscellaneous Notes The following approved medication requests have been transmitted electronically. Requested Prescriptions Signed Prescriptions Disp Refills divalproex DR (DEPAKOTE) 500 mg EC tablet 90 tablet 0 Sig: take 1 tablet by mouth every morning and 2 tablets at bedtime Authorizing Provider: DALI LEE folic acid 1 mg tablet 60 tablet 0 Sig: take 2 tablets by mouth once daily Authorizing Provider: DALI LEE zonisamide (ZONEGRAN) 100 mg capsule 60 capsule 0 Sig: take 2 capsules by mouth once daily Authorizing Provider: DALI LEE APRN.CNP documented in this encounter [facility] 02-11-2022 Miscellaneous Notes The following approved medication requests have been transmitted electronically. Requested Prescriptions Refused Prescriptions Disp Refills zonisamide (ZONEGRAN) 100 mg capsule [Pharmacy Med Name: ZONISAMIDE 100 MG CAPSULE] 60 capsule 0 Sig: take 2 capsules by mouth once daily Dali Lee APRN.CNP documented in this encounter [facility] 01-20-2022 Miscellaneous Notes The following approved medication requests have been transmitted electronically. Signed Prescriptions Disp Refills divalproex DR (DEPAKOTE) 500 mg EC tablet 90 tablet 0 Sig: Take 1 tablet by mouth every morning and 2 at bedtime. Needs appt for further refills BATSHEVA: No Authorizing Provider: DALI LEE folic acid 1 mg tablet 60 tablet 0 Sig: Take 2 tablets by mouth once daily. BATSHEVA: No Authorizing Provider: DALI LEE zonisamide (ZONEGRAN) 100 mg capsule 60 capsule 0 Sig: Take 2 capsules by mouth once daily. Needs appt for further refills BATSHEVA: No Authorizing Provider: DALI LEE APRN.CNP Prescription Refill: Patient is out of medication. Requested by: patient Please E-Scribe Caller Contact Number: [phone] [facility] Pharmacy Number: [phone] Generic/ brand: generic 30 or 90 day supply requested: 30 Last appointment: 11/12/19 Next Appointment: patient was transferred to schedulers. Patient of Dr. Douglas documented in this encounter [facility] 07-02-2021 Hospital Discharge instructions Patient Education 07/01/2021 23:26:37 Dental Abscess Dental Abscess An abscess is a pocket of pus at the tip of a tooth root in your jaw bone. It is caused by an infection at the root of the tooth. It can cause pain and swelling of the gum, cheek, or jaw. Pain may spread from the tooth to your ear or the area of your jaw on the same side. If the abscess isn t treated, it appears as a bubble or swelling on the gum near the tooth. The pressure that builds in this swelling is the source of the pain. More serious infections cause your face to swell. An abscess can be caused by a crack in the tooth, a cavity, a gum infection, or a combination of these. Once the pulp of the tooth is exposed, bacteria can spread down the roots to the tip. If the bacteria are not stopped, they can damage the bone and soft tissue, and an abscess can form. Home care Follow these guidelines when caring for yourself at home: Don't have hot and cold foods and drinks. Your tooth may be sensitive to changes in temperature. Don t chew on the side of the infected tooth. If your tooth is chipped or cracked, or if there is a large open cavity, put oil of cloves directly on the tooth to relieve pain. You can buy oil of cloves at drugstores. Some pharmacies carry an fyaw-lai-tfstdws toothache kit. This contains a paste that you can put on the exposed tooth to make it less sensitive. Put a cold pack on your jaw over the sore area to help reduce pain. You may use vpzd-vxy-xqxdjvl medicine to ease pain, unless another medicine was prescribed. If you have chronic liver or kidney disease, talk with your healthcare provider before using acetaminophen or ibuprofen. Also talk with your provider if you ve had a stomach ulcer or GI bleeding. An antibiotic will be prescribed. Take it until finished, even if you are feeling better after a few days. Follow-up care Follow up with your dentist or an oral surgeon, or as advised. Once an infection occurs in a tooth, it will continue to be a problem until the infection is drained. This is done through surgery or a root canal. Or you may need to have your tooth pulled. Call 911 Call 911 if any of these occur: Unusual drowsiness Headache or stiff neck Weakness or fainting Difficulty swallowing, breathing, or opening your mouth Swollen eyelids When to seek medical advice Call your healthcare provider right away if any of these occur: Your face becomes more swollen or red Pain gets worse or spreads to your neck Fever of 100.4 F (38.0 C) or higher, or as directed by your healthcare provider Pus drains from the tooth [id number] [employer]. [address] [place] [address], [place] [address]. All rights reserved. This information is not intended as a substitute for professional medical care. Always follow your healthcare professional's instructions. Follow Up Care 07/01/2021 23:15:31 With:your dentist Address: When:2-4 days [facility] 11-08-2017 History of Past i llness Narrative Problem Noted Date Resolved Date Cough, persistent 11/08/2017 11/11/2017 Post depression 12/03/2012 8 Abnormal glucose complicating 10/10/19 13 12/13/2012 Overview: Elevated 1 hour and threw up twice trying to complete 3 hour, HgA1c and random glucose drawn and WNL SUPRF HIGH RISK NEC [V23.89] 2 12/13/2012 Rubella non-immune status 04/10/20122012 Overview: 04/10/12 - needs vaccinated PP - KK History of depression 03/13/2012 11/08/2017 Overview: 03/13/2012Pt has a history of depression diagnosed in 2007. She has been off medication for one year . She believes she is doing well off medication. Patient states she had suicidal thoughts in 2007. She has 2 psychiatric hospitalizations at [facility] in 2007 for overdose of her medications. Patient denies any suicidal thoughts since then. Discussed increased risks of depression during and and importance of reporting the development or worsening of symptoms should they occur. Tobacco use in 03/13/2012 018 Overview: 03/13/2012 Pt smokes one pack of cigarettes a day. Discussed risks of smoking during . Advised pt to quit. with uncertain dates 03/13/2012 0 12/13/2012 Overview: 03/13/2012Patient is unsure of the date of her last menstrual period. She states it was probably sometime the end of December to the beginning of January. Ultrasound ordered by Dr. Matos for uncertain dates. Seizure 11/11/2017 documented as of this encounter (statuses as of 01/20/2022) [facility] History of Past illness Narrative* Problem Noted Date Resolved Date Cough, persistent 11/08/2017 11/11/2017 Post depression 12/03/2012 8 Abnormal glucose complicating 10/10/19 13 12/13/2012 Overview: Elevated 1 hour and threw up twice trying to complete 3 hour, HgA1c and random glucose drawn and WNL SUPRF HIGH RISK NEC [V23.89] 2 12/13/2012 Rubella non-immune status 04/10/20122012 Overview: 04/10/12 - needs vaccinated PP - KK History of depression 03/13/2012 11/08/2017 Overview: 03/13/2012Pt has a history of depression diagnosed in 2007. She has been off medication for one year . She believes she is doing well off medication. Patient states she had suicidal thoughts in 2007. She has 2 psychiatric hospitalizations at [facility] in 2007 for overdose of her medications. Patient denies any suicidal thoughts since then. Discussed increased risks of depression during and and importance of reporting the development or worsening of symptoms should they occur. Tobacco use in 03/13/2012 018 Overview: 03/13/2012 Pt smokes one pack of cigarettes a day. Discussed risks of smoking during . Advised pt to quit. with uncertain dates 03/13/2012 0 12/13/2012 Overview: 03/13/2012Patient is unsure of the date of her last menstrual period. She states it was probably sometime the end of December to the beginning of January. Ultrasound ordered by Dr. Matos for uncertain dates. Seizure 11/11/2017 documented as of this encounter (statuses as of 02/11/2022) [facility] History of Past illness Narrative* Problem Noted Date Resolved Date Cough, persistent 11/08/2017 11/11/2017 Post depression 12/03/2012 8 Abnormal glucose complicating 10/10/19 13 12/13/2012 Overview: Elevated 1 hour and threw up twice trying to complete 3 hour, HgA1c and random glucose drawn and WNL SUPRF HIGH RISK NEC [V23.89] 2 12/13/2012 Rubella non-immune status 04/10/20122012 Overview: 04/10/12 - needs vaccinated PP - KK History of depression 03/13/2012 11/08/2017 Overview: 03/13/2012Pt has a history of depression diagnosed in 2007. She has been off medication for one year . She believes she is doing well off medication. Patient states she had suicidal thoughts in 2007. She has 2 psychiatric hospitalizations at [facility] in 2007 for overdose of her medications. Patient denies any suicidal thoughts since then. Discussed increased risks of depression during and and importance of reporting the development or worsening of symptoms should they occur. Tobacco use in 03/13/2012 018 Overview: 03/13/2012 Pt smokes one pack of cigarettes a day. Discussed risks of smoking during . Advised pt to quit. with uncertain dates 03/13/2012 0 12/13/2012 Overview: 03/13/2012Patient is unsure of the date of her last menstrual period. She states it was probably sometime the end of December to the beginning of January. Ultrasound ordered by Dr. Matos for uncertain dates. Seizure 11/11/2017 documented as of this encounter (statuses as of 02/15/2022) [facility] History of Past illness Narrative* Problem Noted Date Resolved Date Cough, persistent 11/08/2017 11/11/2017 Post depression 12/03/2012 8 Abnormal glucose complicating 10/10/19 13 12/13/2012 Overview: Elevated 1 hour and threw up twice trying to complete 3 hour, HgA1c and random glucose drawn and WNL SUPRF HIGH RISK NEC [V23.89] 2 12/13/2012 Rubella non-immune status 04/10/20122012 Overview: 04/10/12 - needs vaccinated PP - KK History of depression 03/13/2012 11/08/2017 Overview: 03/13/2012Pt has a history of depression diagnosed in 2007. She has been off medication for one year . She believes she is doing well off medication. Patient states she had suicidal thoughts in 2007. She has 2 psychiatric hospitalizations at [facility] in 2007 for overdose of her medications. Patient denies any suicidal thoughts since then. Discussed increased risks of depression during and and importance of reporting the development or worsening of symptoms should they occur. Tobacco use in 03/13/2012 018 Overview: 03/13/2012 Pt smokes one pack of cigarettes a day. Discussed risks of smoking during . Advised pt to quit. with uncertain dates 03/13/2012 0 12/13/2012 Overview: 03/13/2012Patient is unsure of the date of her last menstrual period. She states it was probably sometime the end of December to the beginning of January. Ultrasound ordered by Dr. Matos for uncertain dates. Seizure 11/11/2017 documented as of this encounter (statuses as of 02/23/2022) [facility]05-[facility]2018 History of Past illness Narrative* Problem Noted Date Resolved Date Cough, persistent 11/08/2017 11/11/2017 Post depression 12/03/2012 8 Abnormal glucose complicating 10/10/19 13 12/13/2012 Overview: Elevated 1 hour and threw up twice trying to complete 3 hour, HgA1c and random glucose drawn and WNL SUPRF HIGH RISK NEC [V23.89] 2 12/13/2012 Rubella non-immune status 04/10/20122012 Overview: 04/10/12 - needs vaccinated PP - KK History of depression 03/13/2012 11/08/2017 Overview: 03/13/2012Pt has a history of depression diagnosed in 2007. She has been off medication for one year . She believes she is doing well off medication. Patient states she had suicidal thoughts in 2007. She has 2 psychiatric hospitalizations at [facility] in 2007 for overdose of her medications. Patient denies any suicidal thoughts since then. Discussed increased risks of depression during and and importance of reporting the development or worsening of symptoms should they occur. Tobacco use in 03/13/2012 018 Overview: 03/13/2012 Pt smokes one pack of cigarettes a day. Discussed risks of smoking during . Advised pt to quit. with uncertain dates 03/13/2012 0 12/13/2012 Overview: 03/13/2012Patient is unsure of the date of her last menstrual period. She states it was probably sometime the end of December to the beginning of January. Ultrasound ordered by Dr. Matos for uncertain dates. Seizure 11/11/2017 documented as of this encounter (statuses as of 02/23/2022) [facility]2018 History of Past illness Narrative* Problem Noted Date Resolved Date Cough, persistent 11/08/2017 11/11/2017 Post depression 12/03/2012 05/23/201 8 Abnormal glucose complicating 10/10/19 13 12/13/2012 Overview: Elevated 1 hour and threw up twice trying to complete 3 hour, HgA1c and random glucose drawn and WNL SUPRF HIGH RISK NEC [V23.89] 2 12/13/2012 Rubella non-immune status 04/10/20122012 Overview: 04/10/12 - needs vaccinated PP - KK History of depression 03/13/2012 11/08/2017 Overview: 03/13/2012Pt has a history of depression diagnosed in 2007. She has been off medication for one year . She believes she is doing well off medication. Patient states she had suicidal thoughts in 2007. She has 2 psychiatric hospitalizations at [facility] in 2007 for overdose of her medications. Patient denies any suicidal thoughts since then. Discussed increased risks of depression during and and importance of reporting the development or worsening of symptoms should they occur. Tobacco use in 03/13/2012 018 Overview: 03/13/2012 Pt smokes one pack of cigarettes a day. Discussed risks of smoking during . Advised pt to quit. with uncertain dates 03/13/2012 0 12/13/2012 Overview: 03/13/2012Patient is unsure of the date of her last menstrual period. She states it was probably sometime the end of December to the beginning of January. Ultrasound ordered by Dr. Matos for uncertain dates. Seizure 11/11/2017 documented as of this encounter (statuses as of 02/24/2022) [facility] History of Past illness Narrative* Problem Noted Date Resolved Date Cough, persistent 11/08/2017 11/11/2017 Post depression 12/03/2012 8 Abnormal glucose complicating 10/10/19 13 12/13/2012 Overview: Elevated 1 hour and threw up twice trying to complete 3 hour, HgA1c and random glucose drawn and WNL SUPRF HIGH RISK NEC [V23.89] 2 12/13/2012 Rubella non-immune status 04/10/20122012 Overview: 04/10/12 - needs vaccinated PP - KK History of depression 03/13/2012 11/08/2017 Overview: 03/13/2012Pt has a history of depression diagnosed in 2007. She has been off medication for one year . She believes she is doing well off medication. Patient states she had suicidal thoughts in 2007. She has 2 psychiatric hospitalizations at [facility] in 2007 for overdose of her medications. Patient denies any suicidal thoughts since then. Discussed increased risks of depression during and and importance of reporting the development or worsening of symptoms should they occur. Tobacco use in 03/13/2012 018 Overview: 03/13/2012 Pt smokes one pack of cigarettes a day. Discussed risks of smoking during . Advised pt to quit. with uncertain dates 03/13/2012 0 12/13/2012 Overview: 03/13/2012Patient is unsure of the date of her last menstrual period. She states it was probably sometime the end of December to the beginning of January. Ultrasound ordered by Dr. Matos for uncertain dates. Seizure 11/11/2017 documented as of this encounter (statuses as of 03/23/2022) [facility] History of Past illness Narrative* Problem Noted Date Resolved Date Cough, persistent 11/08/2017 11/11/2017 Post depression 12/03/2012 8 Abnormal glucose complicating 10/10/19 13 12/13/2012 Overview: Elevated 1 hour and threw up twice trying to complete 3 hour, HgA1c and random glucose drawn and WNL SUPRF HIGH RISK NEC [V23.89] 2 12/13/2012 Rubella non-immune status 04/10/20122012 Overview: 04/10/12 - needs vaccinated PP - KK History of depression 03/13/2012 11/08/2017 Overview: 03/13/2012Pt has a history of depression diagnosed in 2007. She has been off medication for one year . She believes she is doing well off medication. Patient states she had suicidal thoughts in 2007. She has 2 psychiatric hospitalizations at [facility] in 2007 for overdose of her medications. Patient denies any suicidal thoughts since then. Discussed increased risks of depression during and and importance of reporting the development or worsening of symptoms should they occur. Tobacco use in 03/13/2012 018 Overview: 03/13/2012 Pt smokes one pack of cigarettes a day. Discussed risks of smoking during . Advised pt to quit. with uncertain dates 03/13/2012 0 12/13/2012 Overview: 03/13/2012Patient is unsure of the date of her last menstrual period. She states it was probably sometime the end of December to the beginning of January. Ultrasound ordered by Dr. Matos for uncertain dates. Seizure 11/11/2017 documented as of this encounter (statuses as of 03/24/2022) [facility]2018 History of Past illness Narrative* Problem Noted Date Resolved Date Cough, persistent 11/08/2017 11/11/2017 Post depression 12/03/2012 8 Abnormal glucose complicating 10/10/19 13 12/13/2012 Overview: Elevated 1 hour and threw up twice trying to complete 3 hour, HgA1c and random glucose drawn and WNL SUPRF HIGH RISK NEC [V23.89] 2 12/13/2012 Rubella non-immune status 04/10/20122012 Overview: 04/10/12 - needs vaccinated PP - KK History of depression 03/13/2012 11/08/2017 Overview: 03/13/2012Pt has a history of depression diagnosed in 2007. She has been off medication for one year . She believes she is doing well off medication. Patient states she had suicidal thoughts in 2007. She has 2 psychiatric hospitalizations at [facility] in 2007 for overdose of her medications. Patient denies any suicidal thoughts since then. Discussed increased risks of depression during and and importance of reporting the development or worsening of symptoms should they occur. Tobacco use in 03/13/2012 018 Overview: 03/13/2012 Pt smokes one pack of cigarettes a day. Discussed risks of smoking during . Advised pt to quit. with uncertain dates 03/13/2012 0 12/13/2012 Overview: 03/13/2012Patient is unsure of the date of her last menstrual period. She states it was probably sometime the end of December to the beginning of January. Ultrasound ordered by Dr. Matos for uncertain dates. Seizure 11/11/2017 documented as of this encounter (statuses as of 07/25/2022) [facility]2018 History of Past illness Narrative* Problem Noted Date Resolved Date Cough, persistent 11/08/2017 11/11/2017 Post depression 12/03/2012 8 Abnormal glucose complicating 10/10/19 13 12/13/2012 Overview: Elevated 1 hour and threw up twice trying to complete 3 hour, HgA1c and random glucose drawn and WNL SUPRF HIGH RISK NEC [V23.89] 2 12/13/2012 Rubella non-immune status 04/10/20122012 Overview: 04/10/12 - needs vaccinated PP - KK History of depression 03/13/2012 11/08/2017 Overview: 03/13/2012Pt has a history of depression diagnosed in 2007. She has been off medication for one year . She believes she is doing well off medication. Patient states she had suicidal thoughts in 2007. She has 2 psychiatric hospitalizations at [facility] in 2007 for overdose of her medications. Patient denies any suicidal thoughts since then. Discussed increased risks of depression during and and importance of reporting the development or worsening of symptoms should they occur. Tobacco use in 03/13/2012 018 Overview: 03/13/2012 Pt smokes one pack of cigarettes a day. Discussed risks of smoking during . Advised pt to quit. with uncertain dates 03/13/2012 0 12/13/2012 Overview: 03/13/2012Patient is unsure of the date of her last menstrual period. She states it was probably sometime the end of December to the beginning of January. Ultrasound ordered by Dr. Matos for uncertain dates. Seizure 11/11/2017 documented as of this encounter (statuses as of 07/25/2022) [facility] History of Past illness Narrative* Problem Noted Date Resolved Date Cough, persistent 11/08/2017 11/11/2017 Post depression 12/03/2012 8 Abnormal glucose complicating 10/10/19 13 12/13/2012 Overview: Elevated 1 hour and threw up twice trying to complete 3 hour, HgA1c and random glucose drawn and WNL SUPRF HIGH RISK NEC [V23.89] 2 12/13/2012 Rubella non-immune status 04/10/20122012 Overview: 04/10/12 - needs vaccinated PP - KK History of depression 03/13/2012 11/08/2017 Overview: 03/13/2012Pt has a history of depression diagnosed in 2007. She has been off medication for one year . She believes she is doing well off medication. Patient states she had suicidal thoughts in 2007. She has 2 psychiatric hospitalizations at [facility] in 2007 for overdose of her medications. Patient denies any suicidal thoughts since then. Discussed increased risks of depression during and and importance of reporting the development or worsening of symptoms should they occur. Tobacco use in 03/13/2012 018 Overview: 03/13/2012 Pt smokes one pack of cigarettes a day. Discussed risks of smoking during . Advised pt to quit. with uncertain dates 03/13/2012 0 12/13/2012 Overview: 03/13/2012Patient is unsure of the date of her last menstrual period. She states it was probably sometime the end of December to the beginning of January. Ultrasound ordered by Dr. Matos for uncertain dates. Seizure 11/11/2017 documented as of this encounter (statuses as of 09/16/2022) [facility] History of Past illness Narrative* Problem Noted Date Resolved Date Cough, persistent 11/08/2017 11/11/2017 Post depression 12/03/2012 8 Abnormal glucose complicating 10/10/19 13 12/13/2012 Overview: Elevated 1 hour and threw up twice trying to complete 3 hour, HgA1c and random glucose drawn and WNL SUPRF HIGH RISK NEC [V23.89] 2 12/13/2012 Rubella non-immune status 04/10/20122012 Overview: 04/10/12 - needs vaccinated PP - KK History of depression 03/13/2012 11/08/2017 Overview: 03/13/2012Pt has a history of depression diagnosed in 2007. She has been off medication for one year . She believes she is doing well off medication. Patient states she had suicidal thoughts in 2007. She has 2 psychiatric hospitalizations at [facility] in 2007 for overdose of her medications. Patient denies any suicidal thoughts since then. Discussed increased risks of depression during and and importance of reporting the development or worsening of symptoms should they occur. Tobacco use in 03/13/2012 018 Overview: 03/13/2012 Pt smokes one pack of cigarettes a day. Discussed risks of smoking during . Advised pt to quit. with uncertain dates 03/13/2012 0 12/13/2012 Overview: 03/13/2012Patient is unsure of the date of her last menstrual period. She states it was probably sometime the end of December to the beginning of January. Ultrasound ordered by Dr. Matos for uncertain dates. Seizure 11/11/2017 documented as of this encounter (statuses as of 09/20/2022) [facility]2018 History of Past illness Narrative* Problem Noted Date Resolved Date Cough, persistent 11/08/2017 11/11/2017 Post depression 12/03/2012 8 Abnormal glucose complicating 10/10/19 13 12/13/2012 Overview: Elevated 1 hour and threw up twice trying to complete 3 hour, HgA1c and random glucose drawn and WNL SUPRF HIGH RISK NEC [V23.89] 2 12/13/2012 Rubella non-immune status 04/10/20122012 Overview: 04/10/12 - needs vaccinated PP - KK History of depression 03/13/2012 11/08/2017 Overview: 03/13/2012Pt has a history of depression diagnosed in 2007. She has been off medication for one year . She believes she is doing well off medication. Patient states she had suicidal thoughts in 2007. She has 2 psychiatric hospitalizations at [facility] in 2007 for overdose of her medications. Patient denies any suicidal thoughts since then. Discussed increased risks of depression during and and importance of reporting the development or worsening of symptoms should they occur. Tobacco use in 03/13/2012 018 Overview: 03/13/2012 Pt smokes one pack of cigarettes a day. Discussed risks of smoking during . Advised pt to quit. with uncertain dates 03/13/2012 0 12/13/2012 Overview: 03/13/2012Patient is unsure of the date of her last menstrual period. She states it was probably sometime the end of December to the beginning of January. Ultrasound ordered by Dr. Matos for uncertain dates. Seizure 11/11/2017 documented as of this encounter (statuses as of 09/27/2022) [facility] History of Past illness Narrative* Problem Noted Date Diagnosed Date Resolved Date Cough, persistent 11/08/2017 11/11/2017 Post depression 12/03/201211/08 Abnormal glucose complicating 10/09/2012 12/13/2012 Overview: Elevated 1 hour and threw up twice trying to complete 3 hour, HgA1c and random glucose drawn and WNL SUPRF HIGH RISK NEC [V23.89] 04/26/2012 12/13/2012 Rubella non-immune status 04/10/2012 Overview: 04/10/12 - needs vaccinated PP - KK History of depression 03/13/20122017 Overview: 03/13/2012Pt has a history of depression diagnosed in 2007. She has been off medication for one year . She believes she is doing well off medication. Patient states she had suicidal thoughts in 2007. She has 2 psychiatric hospitalizations at [facility] in 2007 for overdose of her medications. Patient denies any suicidal thoughts since then. Discussed increased risks of depression during and and importance of reporting the development or worsening of symptoms should they occur. Tobacco use in 03/13/2012 Overview: 03/13/2012 Pt smokes one pack of cigarettes a day. Discussed risks of smoking during . Advised pt to quit. with uncertain dates 03/13/2012 12/13/2012 Overview: 03/13/2012Patient is unsure of the date of her last menstrual period. She states it was probably sometime the end of December to the beginning of January. Ultrasound ordered by Dr. Matos for uncertain dates. Seizure 11/11/2017 documented as of this encounter (statuses as of 02/01/2023) [facility] History of Past illness Narrative* Problem Noted Date Diagnosed Date Resolved Date Cough, persistent 11/08/2017 11/11/2017 Post depression 12/03/201211/08 Abnormal glucose complicating 10/09/2012 12/13/2012 Overview: Elevated 1 hour and threw up twice trying to complete 3 hour, HgA1c and random glucose drawn and WNL SUPRF HIGH RISK NEC [V23.89] 04/26/2012 12/13/2012 Rubella non-immune status 04/10/2012 Overview: 04/10/12 - needs vaccinated PP - KK History of depression 03/13/20122017 Overview: 03/13/2012Pt has a history of depression diagnosed in 2007. She has been off medication for one year . She believes she is doing well off medication. Patient states she had suicidal thoughts in 2007. She has 2 psychiatric hospitalizations at [facility] in 2007 for overdose of her medications. Patient denies any suicidal thoughts since then. Discussed increased risks of depression during and and importance of reporting the development or worsening of symptoms should they occur. Tobacco use in 03/13/2012 Overview: 03/13/2012 Pt smokes one pack of cigarettes a day. Discussed risks of smoking during . Advised pt to quit. with uncertain dates 03/13/2012 12/13/2012 Overview: 03/13/2012Patient is unsure of the date of her last menstrual period. She states it was probably sometime the end of December to the beginning of January. Ultrasound ordered by Dr. Matos for uncertain dates. Seizure 11/11/2017 documented as of this encounter (statuses as of 03/01/2023) [facility] History of Past illness Narrative* Problem Noted Date Diagnosed Date Resolved Date Cough, persistent 11/08/2017 11/11/2017 Post depression 12/03/201211/08 Abnormal glucose complicating 10/09/2012 12/13/2012 Overview: Elevated 1 hour and threw up twice trying to complete 3 hour, HgA1c and random glucose drawn and WNL SUPRF HIGH RISK NEC [V23.89] 04/26/2012 12/13/2012 Rubella non-immune status 04/10/2012 Overview: 04/10/12 - needs vaccinated PP - KK History of depression 03/13/20122017 Overview: 03/13/2012Pt has a history of depression diagnosed in 2007. She has been off medication for one year . She believes she is doing well off medication. Patient states she had suicidal thoughts in 2007. She has 2 psychiatric hospitalizations at [facility] in 2007 for overdose of her medications. Patient denies any suicidal thoughts since then. Discussed increased risks of depression during and and importance of reporting the development or worsening of symptoms should they occur. Tobacco use in 03/13/2012 Overview: 03/13/2012 Pt smokes one pack of cigarettes a day. Discussed risks of smoking during . Advised pt to quit. with uncertain dates 03/13/2012 12/13/2012 Overview: 03/13/2012Patient is unsure of the date of her last menstrual period. She states it was probably sometime the end of December to the beginning of January. Ultrasound ordered by Dr. Matos for uncertain dates. Seizure 11/11/2017 documented as of this encounter (statuses as of 04/14/2023) [facility] History of Past illness Narrative* Problem Noted Date Diagnosed Date Resolved Date Cough, persistent 11/08/2017 11/11/2017 Post depression 12/03/201211/08 Abnormal glucose complicating 10/09/2012 12/13/2012 Overview: Elevated 1 hour and threw up twice trying to complete 3 hour, HgA1c and random glucose drawn and WNL SUPRF HIGH RISK NEC [V23.89] 04/26/2012 12/13/2012 Rubella non-immune status 04/10/2012 Overview: 04/10/12 - needs vaccinated PP - KK History of depression 03/13/20122017 Overview: 03/13/2012Pt has a history of depression diagnosed in 2007. She has been off medication for one year . She believes she is doing well off medication. Patient states she had suicidal thoughts in 2007. She has 2 psychiatric hospitalizations at [facility] in 2007 for overdose of her medications. Patient denies any suicidal thoughts since then. Discussed increased risks of depression during and and importance of reporting the development or worsening of symptoms should they occur. Tobacco use in 03/13/2012 Overview: 03/13/2012 Pt smokes one pack of cigarettes a day. Discussed risks of smoking during . Advised pt to quit. with uncertain dates 03/13/2012 12/13/2012 Overview: 03/13/2012Patient is unsure of the date of her last menstrual period. She states it was probably sometime the end of December to the beginning of January. Ultrasound ordered by Dr. Matos for uncertain dates. 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) Generalized convulsive epilepsy with intractable epilepsy [facility] 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) Generalized convulsive epilepsy with intractable epilepsy [facility] 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)- Primary Generalized convulsive epilepsy with 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 Unspecified nonpsychotic mental disorder Anxiety and depression Dysthymic disorder [facility] 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) Generalized convulsive epilepsy with intractable epilepsy [facility] 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) Generalized convulsive epilepsy with intractable epilepsy [facility] 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) Generalized convulsive epilepsy with intractable epilepsy [facility] Diagnosis 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) Generalized convulsive epilepsy with intractable epilepsy documented [facility]* Diagnosis 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) Generalized convulsive epilepsy with intractable epilepsy [facility] Diagnosis 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) Generalized convulsive epilepsy with intractable epilepsy [facility] Diagnosis 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) Generalized convulsive epilepsy with intractable epilepsy [facility]* Diagnosis Overdose of undetermined intent, initial encounter- Primary documented in this encounter [facility] Phone: aluation note* Diagnosis Overdose of anticonvulsant- Primary Poisoning by other and unspecified anticonvulsants Anticonvulsant overdose, intentional self-harm, initial encounter Shock Shock, unspecified Electrolyte disorder (K, Cl, or Na) Electrolyte and fluid disorders not elsewhere classified Anemia (Low HGB) Anemia, unspecified Thrombocytopenia (Low Platelets) Thrombocytopenia, unspecified [facility] Diagnosis 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) Generalized convulsive epilepsy with intractable epilepsy documented [facility]* Diagnosis Contusion of face, initial encounter- Primary Contusion of right knee, initial encounter Contusion of left knee, initial encounter Right wrist injury, initial encounter [facility] Diagnosis Laceration of right upper extremity, initial encounter- Primary [facility] Attachments The following attachments cannot be sent through Care Everywhere. * Lacerations: Stitches (Pakistani) [facility])* Unlisted Procedure Code (Routine) - Pending Review Specialty Diagnoses / Procedures Referred By Korey cuadra Referred To Contact Procedures DVT/VTE RISK ASSESSMENT Andrew Anderson, SUPPLY SPECIALIST-SENIOR [employer] 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 Advance Directives and Livin g Will 09/26/2020 7:08 PM Documents on File Type Date Recorded 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 You tested NEGATIVE for COVID-19. Avoid contact with others as much as possible, because COVID-19 tests can be wrong (false negative), especially if you are tested too early after exposure to the virus. If unable to follow-up as recommended above, please see an Urgent Care Clinic for re-evaluation. Return to the nearest emergency department at any time if there is: any new, returning or worsening symptoms Difficulty breathing Severe/worsening sore or swollen throat Severe/worsening headache Nausea/vomiting/diarrhea that prevents staying well-hydrated (sunken eyes, dry mouth, decreased urine production) New or changing rash Fever >102.0 if it does not come down within 30 minutes of taking Tylenol Uncontrollable shaking chills Difficulty following up as recommended or any other concerns about your condition or treatment. best regards, Chico Livingston MD * Attachments The following attachments cannot be sent through Care Everywhere. * Laryngitis (Pakistani) documented in this encounter Assessments Diagnosis Laryngitis- Primary Acute laryngitis, without mention of obstruction Reason for Referral Specialty Diagnoses / Procedures Referred By Korey cuadra Referred To Contact Procedures ECG Gil Sams, DO [address] [place] [address] Referral ID Status Reason Start Date Expiration Date V isits Requested Visits Authorized [id number] New Request 10/02/2023 10/26/2024 1 1 Specialty Diagnoses / Procedures Referred By Contac t Referred To Contact Procedures ECG Ana Diaz, DO [address] [place] [address] Referral ID Status Reason Start Date Expiration Date V isits Requested Visits Authorized [id number] Pending Review 10/01/2023 10/25/2024 1 1 Specialty Diagnoses / Procedures Referred By Contac t Referred To Contact Diagnoses 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 Procedures CONSULT TO SLEEP MEDICINE - ADULT OFFICE/OUTPATIENT [facility] MDM 60-74 MINUTES Laila Yuen PA-C [address] [place] [address] Referral ID Status Reason Start Date Expiration Date Visits Requested Visits Authorized [id number] Authorized PCP Requested Referral 02/23/2022 02/23/2023 1 1 Specialty Diagnoses / Procedures Referred By Contac t Referred To Contact Diagnoses 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) Laila Yuen PA-C [address] [place] [address] Referral ID Status Reason Start Date Expiration Date Visits Re quested Visits Authorized [id number] Closed 1 1 Specialty Diagnoses / Procedures Referred By Contac t Referred To Contact Psychology Diagnoses Anxiety and depression Procedures CONSULT TO PSYCHOLOGY OFFICE/OUTPATIENT [facility] MDM 60-74 MINUTES Laila Yuen PA-C [address] [place] [address] Referral ID Status Reason Start Date Expiration Date Visits Requested Visits Authorized [id number] Pending Review PCP Requested Referral 02/23/2022 02/23/2023 1 1 Additional Source Comments INFORMATION SOURCE (unrecogn ized section and content) DATE CREATED AUTHOR [facility]/06/2017 [facility] DATE CREATED AUTHOR AUTHOR'S ORGANIZ ATION 12/06/2017 [facility] DATE CREATED AUTHOR AUTHOR'S ORGANIZ ATION 12/12/2017 [facility] DATE CREATED AUTHOR AUTHOR'S ORGANIZ ATION 08/27/2022 [facility] DATE CREATED AUTHOR AUTHOR'S ORGANIZ ATION 12/09/2022 [facility] DATE CREATED AUTHOR AUTHOR'S ORGANIZ ATION 04/18/2023 [facility] DATE CREATED AUTHOR AUTHOR'S ORGANIZ ATION 10/31/2023 [facility] DATE CREATED AUTHOR AUTHOR'S ORGANIZ ATION 01/04/2025 [facility] Reason for Visit (unrecogniz ed section and content) Reason Comments Cough Shortness of Breath Reason Onset Date Comments Refill Request 01/20/2022 Reason Comments Refill Request Reason Comments Epilepsy Follow Up Reason Comments Other Per patient's reques t, Clonazepam script called to [facility] [phone] Reason Comments Opened In Error Reason Onset Date Comments Refill Request 03/23/2022 Reason Onset Date Comments Refill Request 07/23/2022 Reason Onset Date Comments Refill Request 09/15/2022 Reason Onset Date Comments Refill Request 09/20/2022 Reason Comments Follow Up Epilepsy Reason Comments Research IRB [id number] Reason Comments Drug Overdose Reason Comments Overdose, Intentional Specialty Diagnoses / Procedures Referred By Contac t Referred To Contact Diagnoses Overdose of anticonvulsant Overdose Chapincito Roper MD [address] [facility] [address] [place] [address] [facility] [address] [place] [address] Referral ID Status Reason Start Date Expiration Date Visits Re quested Visits Authorized [id number] 1 1 Reason Onset Date Comments Refill Request 01/30/2024 Reason Comments Facial Injury Reason Comments Laceration Chico Livingston MD - 09/26/2020 7:51 PM EDT ED Notes (unrecognized secti on and content) ED PROVIDER NOTE [facility] EMERGENCY [facility] NAME: Ava Khan AGE: 25 y.o. : 1995 VISIT DATE: 09/26/2020 CSN: [id number] PCP: Physician No Chief Complaint Patient presents with Cough Shortness of Breath HPI HPI: 25-year-old female, with history of tobacco use, seizure disorder, now presenting for evaluation of URI symptoms and concern about Covid. Patient reports that she started getting sick about a week ago, with sore throat, cough, brief occasional hot flashes lasting no more than a few seconds at a time. She reports that she then lost her voice starting about 4 days ago. The cough has persisted, and she now feels she has difficulty sleeping due to the coughing and difficulty breathing at night. She also reports pain in the bilateral rib cage when she coughs. No exertional or radiating symptoms. Contact w/ confirmed/suspected COVID19: Yes Severity: 10 out of 10 Location: as above* Radiating to: only as above; otherwise none* Exacerbated by: only as above; otherwise none* Relieved by: only as above; otherwise none*she has tried cough drops without much success. Associated with: only as above; otherwise none* Historian(s) deny any other concerns. ROS negative except as above. I have reviewed and agree with the available nursing notes except as otherwise reported. I have reviewed available medical records. REVIEW OF SYSTEMS: Const: No fever Hot flashes No medical lethargy Eyes: No redness No discharge ENT: No otalgia No congestion sore throat CV: No chest discomfort except when she coughs No syncope Resp: cough Nighttime SOB GI: No Abdo pain No nausea No vomiting No diarrhea : No sx Nl UOP MSK: Negative except as noted in HPI Skin: No rash Neuro: Nl mental status No JO Hem: No bleeding/clotting problems Psych: Nl behavior except as otherwise noted Special isolation precautions are in place with signage outside this patient's room. This adult care provider performs hand hygiene and enters the patient room wearing: ? gloves ? an appropriately fitting (N-95, PAPR, Aura) mask ? face shield ? protective gown to provide care. See documentation for the care provided. PHYSICAL EXAM: Patient Vitals for the past 24 hrs: BP Temp Temp src Pulse Resp SpO2 09/26/20 1950 131/89 (!) 107 16 97 % 09/26/20 1845 (!) 138/91 98.8 F (37.1 C) Oral (!) 117 18 96 % VS Reviewed. Constitutional: Non-toxic Head: Normocephalic Atraumatic Eyes: PERRL EOMi No hemorrhage No injection No discharge ENT: ? Ears ? ? Nose ? Nasal congestion ? Throat/Mouth ? Mucus membranes moist ? Pharyngeal injection ? No oral / oropharyngeal edema ? No tonsillar enlargement ? No exudate ? No signs of WORK CHECKER / deep-space infection ? No significant gingivitis ? No induration/Frankie's ? Sinuses ? NTTP ? Mastoids ? R nl ? L nl Neck: Nl ROM No meningeal signs Trachea midline No visible/palpable swelling Hoarse voice No stridor No JVD No significant lymphadenopathy No palpable masses Tenderness Midline: NTTP Parasp: NTTP Lateral: NTTP Cardiovascular: RRR Nl heart sounds Respiratory: Occasional coughing. No resp distress Symmetric chest movement No retractions No accessory muscles CTAB Not diminished or absent Gastrointestinal: Non-distended Nl bowel sounds Soft NTTP No guarding No rebound No pulsatile mass Genitourinary: Deferred Back Upper Extremities: Nl inspection Nl peripheral pulses Lower Extremities: No pitting edema NTTP No cording Neurologic: Alert Answers questions appropriately No focal deficits Psych: Appropriate Skin: Warm Dry Nl color No acute/emergency findings unless otherwise specified Past Medical History: Diagnosis Date Seizures (HCC) History reviewed. No pertinent surgical history. History reviewed. No pertinent family history. Social History Socioeconomic History Marital status: Single Spouse name: Not on file Number of children: Not on file Years of education: Not on file Highest education level: Not on file Occupational History Not on file Social Needs Financial resource strain: Not on file Food insecurity Worry: Not on file Inability: Not on file Transportation needs Medical: Not on file Non-medical: Not on file Tobacco Use Smoking status: Current Every Day Smoker Packs/day: 0.50 Types: Cigarettes Smokeless tobacco: Never Used Substance and Sexual Activity Alcohol use: Never Frequency: Never Drug use: Never Sexual activity: Not on file Lifestyle Physical activity Days per week: Not on file Minutes per session: Not on file Stress: Not on file Relationships Social connections Talks on phone: Not on file Gets together: Not on file Attends temple service: Not on file Active member of club or organization: Not on file Attends meetings of clubs or organizations: Not on file Relationship status: Not on file Other Topics Concern Not on file Social History Narrative Not on file Previous Medications Medication Sig divalproex (DEPAKOTE) 500 MG delayed release (DR) tablet 1,000 mg . zonisamide (ZONEGRAN) 100 MG capsule 100 mg . No Known Allergies Review of Systems Patient Vitals for the past 24 hrs: BP Temp Temp src Pulse Resp SpO2 09/26/20 1950 131/89 (!) 107 16 97 % 09/26/20 1845 (!) 138/91 98.8 F (37.1 C) Oral (!) 117 18 96 % Physical Exam Laboratory & Radiographic Imaging (if done): Results for orders placed or performed during the hospital encounter of 09/26/20 COVID-19, Molecular Specimen: Nasopharyngeal; Swab Result Value Ref Range SARS-CoV-2 Not Detected Not Detected No orders to display Procedures MDM Medical Decision Making DDX Including but not limited to: COVID19 Influenza Laryngitis / Other viral infection Bacterial Bronchitis less likely; if patient is not improving on reasonable therapy over the next several days, imaging or antibiotic may be indicated. No indication of: Strep Pharyngitis Diphtheria Pinal Bacterial Sinusitis Deep infection of neck Mastoid space abscess Epiglottitis Tracheitis PNA Sepsis Tick-borne infection ACS PUD/Gastritis/GERD Hepatobiliary PE Pericarditits Aortic dissection Pneumothorax ? Meningitis/Encephalitis ED Course as of Sep 27 2143 Sat Sep 26, 2020 190 SARS-CoV-2: Not Detected [GN] ED Course User Index [GN] Chico Livingston MD Discharge Considered appropriately wide DDx. At this time, acutely dangerous emergency conditions found to be unlikely based on history, exam, vitals and any testing, except as otherwise specified, and patient is appropriate for outpatient management including guaifenesin dextromethorphan and albuterol to improve the cough which should improve her thoracic cage pain and the sore throat as well. She will continue to use ibuprofen as needed. Patient denies anything else I can help her with tonight. . Pt will return to the ED if condition is worsening in any way, or if new sx arise. They understand, are appreciative and comfortable with outpatient plan including follow-up and return ED recommendations as discussed. Pt appears nontoxic, well-hydrated and comfortable. COVID-19 Testing: NEGATIVE. Even so, we cannot definitively rule out COVID-19. I provided education and recommendations on home care and social distancing to help prevent the spread of illness. The patient has been informed that they may have pre-hypertension or hypertension based on a blood pressure reading in the Emergency Department. I recommend that the patient call the primary care provider listed on their discharge instructions or a physician of their choice as soon as possible to arrange follow-up in the next 4 weeks for further evaluation of possible pre-hypertension or hypertension. . Clinical Impression: 1. Laryngitis ED Disposition ED Disposition Condition Comment Discharge Stable Ava Khan discharged to home/self care in stable condition. Follow-up Information 1. your regular primary care provider, or a primary care (or urgent care) clinic of your choice. Why: For recheck, to make sure that you are improving Contact information for after-discharge care Follow-up information has not been specified. New Prescriptions dextromethorphan-guaiFENesin 10-100 mg/5 mL Liqd Take 10 mL by mouth every 6 (six) hours as needed . albuterol (ProAir HFA) 90 mcg/actuation inhaler Inhale 2 (two) puffs every 6 (six) hours as needed for wheezing . Chico Livingston MD 09/26/202151 documented in this encounter Source Comments (unrecognize d section and content) In the event this informatio n is protected by the Federal Confidentiality of Alcohol and Drug Abuse Patient Records regulations: The Federal rules restrict any use of the information to criminally investigate or prosecute any alcohol or drug abuse patient.[facility] the event this information is protected by the Federal Confidentiality of Alcohol and Drug Abuse Patient Records regulations: The Federal rules restrict any use of the information to criminally investigate or prosecute any alcohol or drug abuse patient.[facility] Hospital[facility] the event this information is protected by the Federal Confidentiality of Alcohol and Drug Abuse Patient Records regulations: The Federal rules restrict any use of the information to criminally investigate or prosecute any alcohol or drug abuse patient.[facility]In the event this information is protected by the Federal Confidentiality of Alcohol and Drug Abuse Patient Records regulations: The Federal rules restrict any use of the information to criminally investigate or prosecute any alcohol or drug abuse patient.[facility] HospitalIn the event this information is protected by the Federal Confidentiality of Alcohol and Drug Abuse Patient Records regulations: The Federal rules restrict any use of the information to criminally investigate or prosecute any alcohol or drug abuse patient.[facility] HospitalIn the event this information is protected by the Federal Confidentiality of Alcohol and Drug Abuse Patient Records regulations: The Federal rules restrict any use of the information to criminally investigate or prosecute any alcohol or drug abuse patient.[facility] HospitalIn the event this information is protected by the Federal Confidentiality of Alcohol and Drug Abuse Patient Records regulations: The Federal rules restrict any use of the information to criminally investigate or prosecute any alcohol or drug abuse patient.[facility] HospitalIn the event this information is protected by the Federal Confidentiality of Alcohol and Drug Abuse Patient Records regulations: The Federal rules restrict any use of the information to criminally investigate or prosecute any alcohol or drug abuse patient.[facility] HospitalIn the event this information is protected by the Federal Confidentiality of Alcohol and Drug Abuse Patient Records regulations: The Federal rules restrict any use of the information to criminally investigate or prosecute any alcohol or drug abuse patient.[facility] HospitalIn the event this information is protected by the Federal Confidentiality of Alcohol and Drug Abuse Patient Records regulations: The Federal rules restrict any use of the information to criminally investigate or prosecute any alcohol or drug abuse patient.[facility] HospitalIn the event this information is protected by the Federal Confidentiality of Alcohol and Drug Abuse Patient Records regulations: The Federal rules restrict any use of the information to criminally investigate or prosecute any alcohol or drug abuse patient.[facility] HospitalIn the event this information is protected by the Federal Confidentiality of Alcohol and Drug Abuse Patient Records regulations: The Federal rules restrict any use of the information to criminally investigate or prosecute any alcohol or drug abuse patient.[facility] HospitalIn the event this information is protected by the Federal Confidentiality of Alcohol and Drug Abuse Patient Records regulations: The Federal rules restrict any use of the information to criminally investigate or prosecute any alcohol or drug abuse patient.[facility] HospitalIn the event this information is protected by the Federal Confidentiality of Alcohol and Drug Abuse Patient Records regulations: The Federal rules restrict any use of the information to criminally investigate or prosecute any alcohol or drug abuse patient.[facility] HospitalIn the event this information is protected by the Federal Confidentiality of Alcohol and Drug Abuse Patient Records regulations: The Federal rules restrict any use of the information to criminally investigate or prosecute any alcohol or drug abuse patient.[facility] HospitalIn the event this information is protected by the Federal Confidentiality of Alcohol and Drug Abuse Patient Records regulations: The Federal rules restrict any use of the information to criminally investigate or prosecute any alcohol or drug abuse patient.[facility] HospitalIn the event this information is protected by the Federal Confidentiality of Alcohol and Drug Abuse Patient Records regulations: The Federal rules restrict any use of the information to criminally investigate or prosecute any alcohol or drug abuse patient.[facility] HospitalIn the event this information is protected by the Federal Confidentiality of Alcohol and Drug Abuse Patient Records regulations: The Federal rules restrict any use of the information to criminally investigate or prosecute any alcohol or drug abuse patient.[facility] HospitalIn the event this information is protected by the Federal Confidentiality of Alcohol and Drug Abuse Patient Records regulations: The Federal rules restrict any use of the information to criminally investigate or prosecute any alcohol or drug abuse patient.[facility] Care Teams (unrecognized sec tion and content) Licensed Club Manager Relationship Specialty Start Date End Date Gil Dye MD [address] [place], [place] [id number] PCP - General Family Practice 07/13/16 Licensed Club Manager Relationship Specialty Start Date End Date Gil Dye MD [address] [place], [place] [address] PCP - General Family Practice 07/13/16 Licensed Club Manager Relationship Specialty Start Date End Date Gil Dye MD [address] [place] [address] PCP - General Family Practice 07/13/16 Licensed Club Manager Relationship Specialty Start Date End Date Gil Dye MD [address] [place] [address] PCP - General Family Practice 07/13/16 Licensed Club Manager Relationship Specialty Start Date End Date Gil Dye MD [address] [place] [address] PCP - General Family Practice 07/13/16 Licensed Club Manager Relationship Specialty Start Date End Date Gil Dye MD [address] [place] [address] PCP - General Family Medicine 07/13/16 Licensed Club Manager Relationship Specialty Start Date End Date Gil Dye MD [address] [place] [address], [place] [address] PCP - General Family Medicine 07/13/16 Licensed Club Manager Relationship Specialty Start Date End Date Gil Dye MD [address] [place] [address] PCP - General Family Medicine 07/13/16 Licensed Club Manager Relationship Specialty Start Date End Date Gil Dye MD [facility] [place] [address] PCP - General Family Medicine 07/13/16 Licensed Club Manager Relationship Specialty Start Date End Date Gil Dye MD [address] [place] [address] PCP - General Family Medicine 07/13/16 Licensed Club Manager Relationship Specialty Start Date End Date Gil Dye MD [facility] [place] [address] PCP - General Family Medicine 07/13/16 Licensed Club Manager Relationship Specialty Start Date End Date Gil Dye MD [address] [place] [address] PCP - General Family Medicine 07/13/16 Licensed Club Manager Relationship Specialty Start Date End Date Gil Dye MD [address] [place], [place] [address] PCP - General Family Medicine 07/13/16 Licensed Club Manager Relationship Specialty Start Date End Date [facility] Other [address] [place] [address] PCP - [facility] 10/02/23 Licensed Club Manager Relationship Specialty Start Date End Date [facility] ([facility] Other [address] [place] [address] PCP - [facility] 10/02/23 Licensed Club Manager Relationship Specialty Start Date End Date Gil Dye MD [address] [place], [place] [address] PCP - General Family Medicine 07/13/16 Licensed Club Manager Relationship Specialty Start Date End Date [facility] ([facility] Other [address] [place] [address] PCP - [facility] 10/02/23 Licensed Club Manager Relationship Specialty Start Date End Date [facility] ([facility] Other [address] [place] [address] PCP - [facility] 10/02/23 Scheduled Active and Recently Administ ered Medications (unrecognized section and content) Medication Order 09/30/2023 10/01/2023 10/02/2023 LORazepam (ATIVAN) injection 1 mg (COMPLETED) 1 mg, Intravenous, ONCE, 1 dose, On Mon10/02/23 at 0100, Extravasation Risk 2335 (Given - Provider: Mariah Farias RN) LORazepam (ATIVAN) injection 1 mg (COMPLETED) 1 mg, Intravenous, ONCE, 1 dose, On Mon10/02/23 at 0145, Extravasation Risk 0108 (Given - Provid er: Dali Mendoza RN) Sodium chloride 0.9% IV solution 1,000 mL 1,000 mL, Intravenous, ONCE, 1 dose, On Mon10/02/23 at 0200 0207 (Handoff - Provider: Dali Mendoza RN) Scheduled Medication Order 10/03/2023 10/04/2023 10/05/2023 chlorhexidine (PERIDEX) 0.12 % oral solution 15 mL (CANCELED) 15 mL, Mouth/Throat, EVERY 12 HOURS, First dose on Mon10/02/23 at 1915, Until Discontinued, Not for systemic administration. Non-ventilated patients: Swish and spit. Ventilated patients: Swab in mouth. 0754 (Given - Provider: Ava Kim RN) Divalproex (DEPAKOTE) tablet EC/DR 1,000 mg(Linked Group 1) 1,000 mg, Oral, DAILY AT BEDTIME, First dose on Mon10/03/23 at 2100, Until Discontinued, Do not crush. 2051 (Given - Provider: Sara Mclaughlin RN) 2139 (Given - Provider: Roselia Morrison RN) Divalproex (DEPAKOTE) tablet EC/DR 750 mg(Linked Group 1) 750 mg, Oral, DAILY EVERY MORNING, First dose on Mon10/03/23 at 1400, Until Discontinued, Do not crush. 1558 (Given - Provider: Ava Kim RN) 0823 (Given - Provider: Montana Pemberton RN) 0951 (Given - Provider: Montana Pemberton RN) Enoxaparin Sodium (LOVENOX) injection 40 mg 40 mg, Subcutaneous, DAILY, First dose on Mon10/05/23 at 0900, Until Discontinued, For SUBCUTANEOUS route: alternate injection sites between left and right abdominal wall, pinching location and avoiding area around navel., Indications: DVT/PE prophylaxis 0853 (Given - Provider: Montana Pemberton RN) famotidine (PF) (PEPCID) injection 20 mg (CANCELED)(Linked Group 2) 20 mg, Intravenous, EVERY 12 HOURS, First dose on Mon10/02/23 at 0900, Until Discontinued, Administer undiluted by slow IV push at a rate not to exceed 10mg/min. 0754 (Given - Provider: Ava Kim RN) Folic acid (FOLVITE) tablet 1 mg 1 mg, Oral, DAILY, First dose on Mon10/03/23 at 1415, Until Discontinued 1557 (Given - Provider: Ava Kim RN) 0822 (Given - Provider: Montana Pemberton, CLAUDIA) 0853 (Given - Provider: Montana Pemberton, RN) Heparin injection 5,000 Units (CANCELED)(Linked Group 3) 5,000 Units, Subcutaneous, EVERY 8 HOURS (0800/1600/2200), First dose on Mon10/02/23 at 0945, Until Discontinued 0754 (Given - Provider: Ava Kim RN)1557 (Given - Provider: Ava Kim RN)2052 (Given - Provider: Sara Mclaughlin RN) 0823 (Given - Provider: Montana Pemberton, CLAUDIA)1626 (Given - Provider: Montana Pemberton, CLAUDIA)2140 (Given - Provider: Roselia Morrison RN) levOCARNitine (CARNITOR) 1,700 mg in Sodium chloride 0.9%, with overfill 118.5 mL (total volume) IVPB (CANCELED) 1,700 mg (rounded from 1,749 mg = 15 mg/kg 116.6 kg), Intravenous, at 474 mL/hr, Administer over 15 Minutes, EVERY 4 HOURS, First dose on Mon10/02/23 at 0900, Until Discontinued 0149 ($$New Bag$$ - Provider: Ava Mi RN)0200 (Rate/Dose Verify - Provider: Ava Mi RN)0204 (Stopped - Provider: Ava Mi RN)0600 (Canceled Entry - Provider: Barney Groves MD - Comment: Automatically canceled at discontinue of medication order) ProSource TF 2 Package (CANCELED) 2 Package, Nasogastric, 3 TIMES DAILY, First dose on Mon10/03/23 at 0900, Until Discontinued, Shake packet before use. Infuse directly down the feeding tube via syringe without diluting. Flush tube with 15-30 ml of water before and after administration. 0755 (Given - Provider: Ava Kim RN)1321 (Given - Provider: Ava Kim RN) Sertraline (ZOLOFT) tablet 25 mg 25 mg, Oral, DAILY, First dose on Mon10/04/23 at 1400, Until Discontinued 1451 (Given - Provider: Montana Pemberton RN) 0853 (Given - Provider: Montana Pemberton RN) Water liquid (free water) 30 mL (CANCELED) 30 mL, Per NG tube, EVERY 4 HOURS, First dose on Mon10/02/23 at 1000, Until Discontinued, For tube patency. 0153 (Given - Provider: Ava Mi RN)0507 (Given - Provider: Ava Mi RN)0915 (Given - Provider: Ava Kim RN)1321 (Given - Provider: Ava Kim RN) Water liquid (free water) 300 mL (CANCELED) 300 mL, Per NG tube, EVERY 4 HOURS, First dose on Mon10/02/23 at 1800, Until Discontinued 0154 (Given - Provider: Ava Mi RN)0507 (Given - Provider: vAa Mi RN)0915 (Given - Provider: Ava Kim RN)1321 (Given - Provider: Ava Kim RN) zonisamide (ZONEGRAN) capsule 200 mg 200 mg, Oral, DAILY, First dose on Mon10/03/23 at 1500, Until Discontinued, Contact pharmacy to crush/open due to hazardous classification. Powder supplied by pharmacy may be placed in water, apple juice or applesauce and administered. 1557 (Given - Provider: Ava Kim RN) 0823 (Given - Provider: Montana Pemberton RN) 0853 (Given - Provider: Montana Pemberton RN) Continuous Medication Order 10/03/2023 10/04/2023 10/05/2023 Norepinephrine (LEVOPHED) 4 mg in normal saline 250ml IV infusion premade (CANCELED) 0-1 mcg/kg/min 116.6 kg Order-specific weight (0-437.25 mL/hr, rounded to 0-437.3 mL/hr), Intravenous, CONTINUOUS, Starting on Mon10/02/23 at 0700, Until Mon10/03/23 at 0939, Initiate infusion at 0.02 mcg/kg/min. Titrate by 0.01 mcg/kg/min every 1 minute to maintain MAP between 60 and 70 mmHg. Titrate to the lowest rate to achieve target goal. Notify prescriber for inability to achieve goals at maximum dose of ordered range or change in clinical condition. Extravasation Risk 0000 (Rate/Dose Verify - Provider: Ava Mi RN)0001 (Rate/Dose Change - Provider: Ava Mi RN)0200 (Rate/Dose Verify - Provider: Ava Mi RN)0311 (Rate/Dose Change - Provider: Ava Mi RN)0400 (Rate/Dose Verify - Provider: Ava Mi RN)0600 (Rate/Dose Verify - Provider: Ava Mi RN)0619 (Rate/Dose Change - Provider: Ava Kim RN)0644 (Rate/Dose Change - Provider: Ava Kim RN)0912 (Rate/Dose Verify - Provider: Ava Kim RN)0916 (Rate/Dose Change - Provider: Ava Kim RN)0922 (Stopped - Provider: Ava Kim RN) Propofol (DIPRIVAN) 1000 MG/100ML premix infusion (CANCELED) 0-50 mcg/kg/min 116.6 kg Order-specific weight (0-34.98 mL/hr, rounded to 0-35 mL/hr), Intravenous, CONTINUOUS, Starting on Mon10/02/23 at 0715, Until Mon10/03/23 at 0939, Assess analgesic needs and treat pain first prior to sedation titration. Initiate infusion at 5 mcg/kg/min and titrate up by 5 mcg/kg/min no more frequently than every 5 minutes to maintain target arousal. If below target arousal, titrate down by 5 mcg/kg/min every 5 minutes to the lowest rate needed to achieve target arousal. Do not administer by bolus dosing. Notify prescriber for inability to achieve target arousal at maximum dose of ordered range or if at target arousal but not meeting other clinical parameters. If below target arousal for two consecutive assessments, contact the prescriber for revised titration parameters or an additional spontaneous awakening trial. Extravasation Risk 0000 (Rate/Dose Verify - Provider: Ava Mi RN)0017 (Restarted - Provider: Ava Mi RN)0021 (Rate/Dose Verify - Provider: Ava Mi RN)0038 ($$New Bag$$ - Provider: Ava Mi RN)0200 (Rate/Dose Verify - Provider: Ava Mi RN)0304 ($$New Bag$$ - Provider: Ava Mi RN)0400 (Rate/Dose Verify - Provider: Ava Mi RN)0539 (Restarted - Provider: Ava Mi RN)0546 (Rate/Dose Verify - Provider: Ava Mi RN)0600 (Rate/Dose Verify - Provider: Ava Mi RN)0612 (Rate/Dose Verify - Provider: Ava Kim RN)0613 ($$New Bag$$ - Provider: Ava Mi RN)0758 (Stopped - Provider: Ava Kim RN)0811 (Stopped - Provider: Ava Kim RN)0846 (Stopped - Provider: Ava Kim RN)0922 (Paused - Provider: Ava Kim RN)0922 (Rate/Dose Change - Provider: Ava Kim RN)0942 (Stopped - Provider: Ava Kim RN) Vital high protein LIQD (CANCELED) Per OG Tube, CONTINUOUS, Starting on Mon10/02/23 at 0945, Until Mon10/03/23 at 1404, Dosing: Continuous, Starting Rate (mL/hr): 10, Advance by (mL/hr): 10, Every ____ hours: 4, Goal Rate (mL/hr): 30 0000 (Rate/Dose Change - Provider: Ava Mi RN)0754 (Rate/Dose Change - Provider: Ava Kim RN)0900 (Stopped - Provider: Ava Kim RN)0912 (Canceled Entry - Provider: Ava Kim RN - Comment: Cancelled from back documented administration.) PRN Medication Order 10/03/2023 10/04/2023 10/05/2023 Acetaminophen (TYLENOL) tablet 650 mg 650 mg, Per NG tube, EVERY 6 HOURS NEEDED, Starting on Mon10/03/23 at 0921, Until Mon10/05/23 at 1452, Oral temp > 100.4 F, Maximum dose of acetaminophen is 4000 mg from all sources in 24 hours. 0958 (Given - Provider: Ava Kim RN)1557 (Given - Provider: Ava Kim RN) Calcium Gluconate 10 % injection 2 g(Linked Group 4) 2 g, Intravenous, ADMINISTER DIRECTED, Starting on Mon10/02/23 at 1705, Until Mon10/05/23 at 1452, See admin instructions, ICU Calcium Gluconate Replacement Parameters, Administer if ionized calcium is between 4.1-4.4 mg/dl. EXCLUDE less than 45 kg, SCr greater than or equal to 2 mg/dL, CrCl less than 30 ml/min, ESRD, and renal replacement therapy, Serum total Ca x serum Phos greater than 70 mg/dL. Extravasation Risk Calcium Gluconate 4 g in Sodium chloride 0.9%, with overfill 150 mL (total volume) IVPB(Linked Group 4) 4 g, Intravenous, Administer over 60 Minutes, ADMINISTER DIRECTED, Starting on Mon10/02/23 at 1705, Until Mon10/05/23 at 1452, See admin instructions, ICU Calcium Gluconate Replacement Parameters, Administer if ionized calcium is less than or equal to 4 mg/dl. EXCLUDE less than 45 kg, SCr greater than or equal to 2 mg/dL, CrCl less than 30 ml/min, ESRD, and renal replacement therapy, Serum total Ca x serum Phos greater than 70 mg/dL.Ca x Phos greater than 70mg/dL. If ionized calcium is less than or equal to 3.0 mg/dL, recheck ionized calcium 2 hours after replacement. Extravasation Risk fentaNYL (SUBLIMAZE) injection 100 mcg (CANCELED) 100 mcg, Intravenous, Administer over 2 Minutes, EVERY 1 HOUR NEEDED, Starting on Mon10/02/23 at 0711, Until Mon10/03/23 at 0939, Severe Pain, Shortness of Breath 0224 (Given - Provider: Ava Mi RN)0451 (Given - Provider: Ava Mi RN)0633 (Given - Provider: Ava Mi RN) Haloperidol lactate (HALDOL) injection 1 mg 1 mg, Intravenous, EVERY 6 HOURS NEEDED, Starting on Mon10/03/23 at 1511, Until Mon10/05/23 at 1452, agitation Ibuprofen (MOTRIN) tablet 400 mg 400 mg, Oral, EVERY 6 HOURS NEEDED, Starting on Mon10/03/23 at 1402, Until Mon10/05/23 at 1452, Mild Pain, Moderate Pain, Severe Pain, Give with food 2051 (Given - Provider: Sara Mclaughlin, CLAUDIA) 2139 (Given - Provider: Roselia Morrison, RN) Magnesium sulfate 4 g in sterile water 50 ml premix IVPB 4 g, Intravenous, Administer over 4 Hours, ADMINISTER DIRECTED, Starting on Mon10/02/23 at 1705, Until Mon10/05/23 at 1452, Other, ICU Magnesium Replacement Parameters, Administer 4 grams once if magnesium level is less than or equal to 2.0 mg/dL. If replacing potassium also, replete magnesium prior to KCl administration. EXCLUDE less than 45 kg, SCr greater than or equal to 2 mg/dL, CrCl less than 30 ml/min, ESRD, and renal replacement therapy 0306 ($$New Bag$$ - Provider: Ava Mi RN)0400 (Rate/Dose Verify - Provider: Ava Mi RN)0600 (Rate/Dose Verify - Provider: Ava Mi, RN)0706 (Stopped - Provider: Ava Kim RN) Melatonin tablet 6 mg 6 mg, Oral, DAILY AT BEDTIME NEEDED, Starting on Mon10/03/23 at 1856, Until Mon10/05/23 at 1452, Insomnia 2051 (Given - Provider: Sara Mclaughlin RN) 2139 (Given - Provider: Roselia Morrison, CLAUDIA) midazolam (VERSED) injection 2 mg (CANCELED) 2 mg, Intravenous, EVERY 2 HOURS NEEDED, Starting on Mon10/02/23 at 0710, Until Mon10/03/23 at 0939, Anxiety, agitation 0147 (Given - Provider: Ava Mi, CLAUDIA) Potassium Bicarb-Citric Acid (Effer-K) 20 MEQ effervescent tablets for oral solution 20 mEq(Linked Group 5) 20 mEq, Per NG tube, ADMINISTER DIRECTED, Starting on Mon10/02/23 at 1705, Until Mon10/05/23 at 1452, Other, ICU Potassium Replacement Parameters - See administration instructions, Administer 40 mEq if potassium level 3.6-3.9 mmol/L; administer 80 mEq if potassium level is less than or equal to 3.5 mmol/L. If replacing magnesium also, replete Mg prior to KCl administration. EXCLUDE less than 45 kg, SCr greater than or equal to 2 mg/dL, CrCl less than 30 ml/min, ESRD and renal replacement therapy. If patient receiving tube feeds, diet or is receiving other oral medications, enteral route preferred unless serum potassium is less than 3.0 mmol/L, then use IV formulation. If potassium level is less than or equal to 3.0 mmol/L, recheck potassium 4 hours after replacement. Do not swallow whole. Dissolve completely in 3-4 ounces of water or cold juice before drinking. If administering via J tube, dilute in sterile water, wait for tablet to stop fizzing, swirl the solution and draw into a syringe suitable for attaching to the tube. After administration, flush tube with 15-30 ml water. 0153 (See Alternative - Provider: Ava Mi RN)0200 (See Alternative - Provider: Ava Mi RN)0253 (See Alternative - Provider: Ava Mi RN)0257 (See Alternative - Provider: Ava Mi RN)0300 (See Alternative - Provider: Ava Mi RN)0304 (See Alternative - Provider: Ava Mi RN)0400 (See Alternative - Provider: Ava Mi RN)0401 (See Alternative - Provider: Ava Mi RN)0501 (See Alternative - Provider: Ava Mi RN)0507 (See Alternative - Provider: Ava Mi RN)0600 (See Alternative - Provider: Ava Mi RN)0607 (See Alternative - Provider: Ava Kim, CLAUDIA)1557 (Given - Provider: Ava Kim RN) 0010 (Given - Provider: Piero Gray, RN)0011 (Given - Provider: Piero Gray, CLAUDIA) 0858 (See Alternative - Provider: Montana Pemberton RN) Potassium chloride (K-DUR) tablet ER 20 mEq(Linked Group 5) 20 mEq, Oral, ADMINISTER DIRECTED, Starting on 10/02/23 at 1705, Until Marina 10/05/23 at 1452, See admin instructions, ICU Potassium Replacement Parameters, Swallow tablets whole; do not crush, chew, or suck on tablet. Tablet may also be broken in half and each half swallowed separately Administer 40 mEq if potassium level 3.6-3.9 mmol/L; administer 80 mEq if potassium level is less than or equal to 3.5 mmol/L If replacing magnesium also, replete Mg prior to KCl administration. EXCLUDE less than 45 kg, SCr greater than or equal to 2 mg/dL, CrCl less than 30 ml/min, ESRD, and renal replacement therapy. If patient receiving tube feeds, diet or is receiving other oral medications, enteral route preferred unless serum potassium is less than 3.0 mmol/L, then use IV formulation. If potassium level is less than or equal to 3.0 mmol/L, recheck potassium 4 hours after replacement. 0153 (See Alternative - Provider: Ava Mi RN)0200 (See Alternative - Provider: Ava Mi RN)0253 (See Alternative - Provider: Ava Mi RN)0257 (See Alternative - Provider: Ava Mi RN)0300 (See Alternative - Provider: Ava Mi RN)0304 (See Alternative - Provider: Ava Mi RN)0400 (See Alternative - Provider: Ava Mi RN)0401 (See Alternative - Provider: Ava Mi RN)0501 (See Alternative - Provider: Ava Mi RN)0507 (See Alternative - Provider: Ava Mi RN)0600 (See Alternative - Provider: Ava Mi RN)0607 (See Alternative - Provider: Ava Kim RN)1557 (See Alternative - Provider: Ava Kim RN) 0010 (See Alternative - Provider: Piero Gray RN)0011 (See Alternative - Provider: Piero Gray RN) 0858 (Given - Provider: Montana Pemberton RN - Comment: K - 3.9) Potassium chloride 10 mEq in sterile water 100 ml premix IVPB(Linked Group 5) 10 mEq, Intravenous, Administer over 60 Minutes, ADMINISTER DIRECTED, Starting on 10/02/23 at 1705, Until Marina 10/05/23 at 1452, Other, ICU Potassium Replacement Parameters, FOR PERIPHERAL LINE: Administer 40 mEq if potassium level 3.6-3.9 mmol/L; administer 80 mEq if potassium level is less than or equal to 3.5 mmol/L. If replacing magnesium also, replete Mg prior to KCl administration. EXCLUDE less than 45 kg, SCr greater than or equal to 2 mg/dL, CrCl less than 30 ml/min, ESRD and renal replacement therapy. If patient receiving tube feeds, diet or is receiving other oral medications, enteral route preferred unless serum potassium is less than 3.0 mmol/L, then use IV formulation. If potassium level is less than or equal to 3.0 mmol/L, recheck potassium 4 hours after replacement. 0153 (See Alternative - Provider: Ava Mi RN)0200 (See Alternative - Provider: Ava Mi RN)0253 (See Alternative - Provider: Ava Mi RN)0257 (See Alternative - Provider: Ava Mi RN)0300 (See Alternative - Provider: Ava Mi RN)0304 (See Alternative - Provider: Ava Mi RN)0400 (See Alternative - Provider: Ava iM RN)0401 (See Alternative - Provider: Ava Mi RN)0501 (See Alternative - Provider: Ava Mi RN)0507 (See Alternative - Provider: Ava Mi RN)0600 (See Alternative - Provider: Ava Mi RN)0607 (See Alternative - Provider: Ava Kim, CLAUDIA)1557 (See Alternative - Provider: Ava Kim, CLAUDIA) 0010 (See Alternative - Provider: Piero Gray, RN)0011 (See Alternative - Provider: Piero Gray, RN) 0858 (See Alternative - Provider: Montana Pemberton RN) Potassium chloride 20 mEq in sterile water 50 ml premix IVPB(Linked Group 5) 20 mEq, Intravenous, Administer over 60 Minutes, ADMINISTER DIRECTED, Starting on 10/02/23 at 1705, Until Marina 10/05/23 at 1452, Other, ICU Potassium Replacement parameters, FOR CENTRAL LINE: Administer 40 mEq if potassium level 3.6-3.9 mmol/L; administer 80 mEq if potassium level is less than or equal to 3.5 mmol/L. If replacing magnesium also, replete Mg prior to KCl administration. EXCLUDE less than 45 kg, SCr greater than or equal to 2 mg/dL, CrCl less than 30 ml/min, ESRD, and renal replacement therapy. If patient receiving tube feeds, diet or is receiving other oral medications, enteral route preferred unless serum potassium is less than 3.0 mmol/L, then use IV formulation. If potassium level is less than or equal to 3.0 mmol/L, recheck potassium 4 hours after replacement. Extravasation Risk. CENTRAL LINE required. Telemetry required. 0153 ($$New Bag$$ - Provider: Ava Mi RN)0200 (Rate/Dose Verify - Provider: Ava Mi RN)0253 (Stopped - Provider: Ava Mi RN)0257 ($$New Bag$$ - Provider: Ava Mi RN)0300 (Paused - Provider: Ava Mi RN)0304 (Restarted - Provider: Ava Mi RN)0400 (Rate/Dose Verify - Provider: Ava Mi RN)0401 ($$New Bag$$ - Provider: Ava Mi RN)0501 (Stopped - Provider: Ava Mi RN)0507 ($$New Bag$$ - Provider: Ava Mi RN)0600 (Rate/Dose Verify - Provider: Ava Mi RN)0607 (Stopped - Provider: Ava Kim RN)1557 (See Alternative - Provider: Ava Kim RN) 0010 (See Alternative - Provider: Piero Gray, RN)0011 (See Alternative - Provider: Piero Gray, RN) 0858 (See Alternative - Provider: Montana Pemberton RN) Sodium chloride 0.9% IV solution 250 mL Intravenous, at 20 mL/hr, NEEDED, Starting on Mon10/02/23 at 0632, Until Marina 10/05/23 at 1452, Carrier Fluid - See Admin. Inst, 250mL 0.9NS to be used as carrier fluid for intermittent small volume or piggyback medication administration as needed. Infusion rate of the carrier fluid should be set at 20 mL/hr unless the rate as the intermittent medication is less than 20 mL/hr. For intermittent medications with a rate less than 20 mL/hr set the carrier fluid at that rate of the intermittent or piggy back medication. sodium phosphate 30 mmol in Sodium chloride 0.9%, with overfill 285 mL (total volume) IVPB(Linked Group 6) 30 mmol, Intravenous, Administer over 4 Hours, ADMINISTER DIRECTED, Starting on Mon10/02/23 at 1705, Until Marina 10/05/23 at 1452, Other, ICU Phosphate Replacement Parameters, Administer 30 mmol if phosphate level is 2.1-2.6 mg/dl. EXCLUDE less than 45 kg, SCr greater than or equal to 2mg/dL, CrCl less than 30 ml/min, ESRD, renal replacement therapy, sodium greater than 150 mg/dL, ionized calcium less than 3.2 mg/dL, or Serum total Ca x serum Phos greater than 70 mg/dL. sodium phosphate 45 mmol in Sodium chloride 0.9%, with overfill 290 mL (total volume) IVPB(Linked Group 6) 45 mmol, Intravenous, Administer over 6 Hours, ADMINISTER DIRECTED, Starting on Mon10/02/23 at 1705, Until Mon10/05/23 at 1452, Other, ICU Phosphate Replacement Parameters, Administer 45 mmol if phosphate level is less than or equal to 2.0 mg/dl. EXCLUDE less than 45 kg, SCr greater than or equal to 2 mg/dL, CrCl less than 30 ml/min, ESRD, renal replacement therapy, sodium greater than 150 mg/dL, ionized calcium less than 3.2 mg/dL, or Serum total Ca x serum Phos greater than 70 mg/dL. Recheck phosphate 6 hours after replacement. Linked Groups Order Group 1: Divalproex (DEPAKOTE) tablet EC/DR 750 mgJump to med 750 mg, Oral, DAILY EVERY MORNING, First dose on Mon10/03/23 at 1400, Until Discontinued, Do not crush. And Divalproex (DEPAKOTE) tablet EC/DR 1,000 mgJump to med 1,000 mg, Oral, DAILY AT BEDTIME, First dose on Mon10/03/23 at 2100, Until Discontinued, Do not crush. Group 2: faMOTIdine (PEPCID) tablet 20 mg (CANCELED) 20 mg, Per NG tube, EVERY 12 HOURS, First dose on Mon10/02/23 at 0900, Until Discontinued Or faMOTIdine (PEPCID) tablet 20 mg (CANCELED) 20 mg, Oral, EVERY 12 HOURS, First dose on Mon10/02/23 at 0900, Until Discontinued Or famotidine (PF) (PEPCID) injection 20 mg (CANCELED)Jump to med 20 mg, Intravenous, EVERY 12 HOURS, First dose on Mon10/02/23 at 0900, Until Discontinued, Administer undiluted by slow IV push at a rate not to exceed 10mg/min. Group 3: Heparin injection 5,000 Units (CANCELED)Jump to med 5,000 Units, Subcutaneous, EVERY 8 HOURS (0800/1600/2200), First dose on Mon10/02/23 at 0945, Until Discontinued And PLATELET COUNT (CANCELED) Routine, EVERY 3 DAYS AM LAB, First occurrence on Mon10/02/23 at 0942, Until Specified, New collection Group 4: Calcium Gluconate 10 % injection 2 gJump to med 2 g, Intravenous, ADMINISTER DIRECTED, Starting on Mon10/02/23 at 1705, Until Marina 10/05/23 at 1452, See admin instructions, ICU Calcium Gluconate Replacement Parameters, Administer if ionized calcium is between 4.1-4.4 mg/dl. EXCLUDE less than 45 kg, SCr greater than or equal to 2 mg/dL, CrCl less than 30 ml/min, ESRD, and renal replacement therapy, Serum total Ca x serum Phos greater than 70 mg/dL. Extravasation Risk Or Calcium Gluconate 4 g in Sodium chloride 0.9%, with overfill 150 mL (total volume) IVPBJump to med 4 g, Intravenous, Administer over 60 Minutes, ADMINISTER DIRECTED, Starting on Mon10/02/23 at 1705, Until Marina 10/05/23 at 1452, See admin instructions, ICU Calcium Gluconate Replacement Parameters, Administer if ionized calcium is less than or equal to 4 mg/dl. EXCLUDE less than 45 kg, SCr greater than or equal to 2 mg/dL, CrCl less than 30 ml/min, ESRD, and renal replacement therapy, Serum total Ca x serum Phos greater than 70 mg/dL.Ca x Phos greater than 70mg/dL. If ionized calcium is less than or equal to 3.0 mg/dL, recheck ionized calcium 2 hours after replacement. Extravasation Risk Group 5: Potassium chloride 20 mEq in sterile water 50 ml premix IVPBJump to med 20 mEq, Intravenous, Administer over 60 Minutes, ADMINISTER DIRECTED, Starting on Mon10/02/23 at 1705, Until Marina 10/05/23 at 1452, Other, ICU Potassium Replacement parameters, FOR CENTRAL LINE: Administer 40 mEq if potassium level 3.6-3.9 mmol/L; administer 80 mEq if potassium level is less than or equal to 3.5 mmol/L. If replacing magnesium also, replete Mg prior to KCl administration. EXCLUDE less than 45 kg, SCr greater than or equal to 2 mg/dL, CrCl less than 30 ml/min, ESRD, and renal replacement therapy. If patient receiving tube feeds, diet or is receiving other oral medications, enteral route preferred unless serum potassium is less than 3.0 mmol/L, then use IV formulation. If potassium level is less than or equal to 3.0 mmol/L, recheck potassium 4 hours after replacement. Extravasation Risk. CENTRAL LINE required. Telemetry required. Or Potassium chloride (K-DUR) tablet ER 20 mEqJump to med 20 mEq, Oral, ADMINISTER DIRECTED, Starting on Mon10/02/23 at 1705, Until Marina 10/05/23 at 1452, See admin instructions, ICU Potassium Replacement Parameters, Swallow tablets whole; do not crush, chew, or suck on tablet. Tablet may also be broken in half and each half swallowed separately Administer 40 mEq if potassium level 3.6-3.9 mmol/L; administer 80 mEq if potassium level is less than or equal to 3.5 mmol/L If replacing magnesium also, replete Mg prior to KCl administration. EXCLUDE less than 45 kg, SCr greater than or equal to 2 mg/dL, CrCl less than 30 ml/min, ESRD, and renal replacement therapy. If patient receiving tube feeds, diet or is receiving other oral medications, enteral route preferred unless serum potassium is less than 3.0 mmol/L, then use IV formulation. If potassium level is less than or equal to 3.0 mmol/L, recheck potassium 4 hours after replacement. Or Potassium Bicarb-Citric Acid (Effer-K) 20 MEQ effervescent tablets for oral solution 20 mEqJump to med 20 mEq, Per NG tube, ADMINISTER DIRECTED, Starting on Mon10/02/23 at 1705, Until Marina 10/05/23 at 1452, Other, ICU Potassium Replacement Parameters - See administration instructions, Administer 40 mEq if potassium level 3.6-3.9 mmol/L; administer 80 mEq if potassium level is less than or equal to 3.5 mmol/L. If replacing magnesium also, replete Mg prior to KCl administration. EXCLUDE less than 45 kg, SCr greater than or equal to 2 mg/dL, CrCl less than 30 ml/min, ESRD and renal replacement therapy. If patient receiving tube feeds, diet or is receiving other oral medications, enteral route preferred unless serum potassium is less than 3.0 mmol/L, then use IV formulation. If potassium level is less than or equal to 3.0 mmol/L, recheck potassium 4 hours after replacement. Do not swallow whole. Dissolve completely in 3-4 ounces of water or cold juice before drinking. If administering via J tube, dilute in sterile water, wait for tablet to stop fizzing, swirl the solution and draw into a syringe suitable for attaching to the tube. After administration, flush tube with 15-30 ml water. Or Potassium chloride 10 mEq in sterile water 100 ml premix IVPBJump to med 10 mEq, Intravenous, Administer over 60 Minutes, ADMINISTER DIRECTED, Starting on Mon10/02/23 at 1705, Until Marina 10/05/23 at 1452, Other, ICU Potassium Replacement Parameters, FOR PERIPHERAL LINE: Administer 40 mEq if potassium level 3.6-3.9 mmol/L; administer 80 mEq if potassium level is less than or equal to 3.5 mmol/L. If replacing magnesium also, replete Mg prior to KCl administration. EXCLUDE less than 45 kg, SCr greater than or equal to 2 mg/dL, CrCl less than 30 ml/min, ESRD and renal replacement therapy. If patient receiving tube feeds, diet or is receiving other oral medications, enteral route preferred unless serum potassium is less than 3.0 mmol/L, then use IV formulation. If potassium level is less than or equal to 3.0 mmol/L, recheck potassium 4 hours after replacement. Group 6: sodium phosphate 30 mmol in Sodium chloride 0.9%, with overfill 285 mL (total volume) IVPBJump to med 30 mmol, Intravenous, Administer over 4 Hours, ADMINISTER DIRECTED, Starting on Mon10/02/23 at 1705, Until Marina 10/05/23 at 1452, Other, ICU Phosphate Replacement Parameters, Administer 30 mmol if phosphate level is 2.1-2.6 mg/dl. EXCLUDE less than 45 kg, SCr greater than or equal to 2mg/dL, CrCl less than 30 ml/min, ESRD, renal replacement therapy, sodium greater than 150 mg/dL, ionized calcium less than 3.2 mg/dL, or Serum total Ca x serum Phos greater than 70 mg/dL. Or sodium phosphate 45 mmol in Sodium chloride 0.9%, with overfill 290 mL (total volume) IVPBJump to med 45 mmol, Intravenous, Administer over 6 Hours, ADMINISTER DIRECTED, Starting on 10/02/23 at 1705, Until Marina 10/05/23 at 1452, Other, ICU Phosphate Replacement Parameters, Administer 45 mmol if phosphate level is less than or equal to 2.0 mg/dl. EXCLUDE less than 45 kg, SCr greater than or equal to 2 mg/dL, CrCl less than 30 ml/min, ESRD, renal replacement therapy, sodium greater than 150 mg/dL, ionized calcium less than 3.2 mg/dL, or Serum total Ca x serum Phos greater than 70 mg/dL. Recheck phosphate 6 hours after replacement. Scheduled Medication Order 02/11/2024 02/12/2024 02/13/2024 Acetaminophen (TYLENOL) tablet 975 mg (COMPLETED) 975 mg, Oral, ONCE, 1 dose, On Mon02/13/24 at 1630, Maximum dose of acetaminophen is 4000 mg from all sources in 24 hours. 1602 (Given - Provid er: Dali Hilton RN) Ibuprofen (MOTRIN) tablet 600 mg (COMPLETED) 600 mg, Oral, ONCE, 1 dose, On Mon02/13/24 at 1630, Give with food 1602 (Given - Provid er: Dali Hilton RN) Scheduled Medication Order 12/24/2024 12/25/2024 12/26/2024 Lidocaine 1% (PF) (XYLOCAINE MPF) 1 % injection 5 mL (COMPLETED) 5 mL, Infiltration, ONCE, 1 dose, On Marina 12/26/24 at 1745, To bedside for physician administration 1706 (Given - Provid er: Aurora Bernard RN) FOR RECORDS PERTAINING TO PATIENTS WHO ARE OR HAVE BEEN ENROLLED IN A CHEMICAL DEPENDENCY/SUBSTANCEABUSE PROGRAM, SOME INFORMATION MAY BE OMITTED. This clinical summary was aggregated from multiple sources. Caution should be exercised in using it in the provision of clinical care. This summary normalizes information from multiple sources, and as a consequence, information in this document may materially change the coding, format and clinical context of patient data. In addition, data may be omitted in some cases. CLINICAL DECISIONS SHOULD BE BASED ON THE PRIMARY CLINICAL RECORDS. [employer] provides no warranty or guarantee of the accuracy or completeness of information in this document.
== END 2025-03-19 20:18 | disposition home or self-care (01) ==
PROVIDERS: Emergency Provider Surgery; PCP Family Medicine; Visit Provider Surgery
DX: S52.572A Other intraarticular fracture of lower end of left radius, initial encounter for closed fracture (principal); S62.321A Displaced fracture of shaft of second metacarpal bone, left hand, initial encounter for closed fracture; X58.XXXA Exposure to other specified factors, initial encounter; F17.210 Nicotine dependence, cigarettes, uncomplicated
CPT/HCPCS: 29125; 73110; 73130; 96372; 99282

== ENCOUNTER 2025-03-19 23:53 | Emergency (ER) | payer MEDICAID, SELFPAY ==
[2025-03-19 23:54] VITALS: BP 135/88; PULSE 96; RESP 11; TEMP 37.1; O2SAT 97; BMI 37.7
== END 2025-03-20 00:07 | disposition left against medical advice (07) ==
LOC: ED 03-20 00:09
PROVIDERS: PCP Family Medicine
DX: S52.572A Other intraarticular fracture of lower end of left radius, initial encounter for closed fracture (principal); S62.321A Displaced fracture of shaft of second metacarpal bone, left hand, initial encounter for closed fracture; X58.XXXA Exposure to other specified factors, initial encounter; F17.210 Nicotine dependence, cigarettes, uncomplicated; Z53.21 Procedure and treatment not carried out due to patient leaving prior to being seen by health care provider
CPT/HCPCS: 29125; 73110; 73130; 96372; 99282

== ENCOUNTER 2025-03-20 11:15 | Emergency (ER) | payer MEDICAID, SELFPAY ==
[2025-03-20 11:15] VITALS: BP 128/92; PULSE 92; RESP 16; TEMP 36.8; O2SAT 95; BMI 38.4
--- NOTE | 2025-03-20 11:22 | EDS_ITS ---
HPI History of Present Illness Chief Complaint: Seizure [facility] Medical History Smoker Seizure disorder Home Medications ?Medication ?Instructions ?Recorded ?Last Taken ?Type zonisamide 100 mg capsule 100 mg PO DAILY 10/11/18 Unk nown History divalproex 250 mg tablet,delayed 1,000 mg PO QHS 03/2003/19/25 History release (Depakote) divalproex 250 mg tablet,delayed 750 mg PO .QAM 03/20/25 History release (Depakote) fluoxetine PO DAILY 03/20/25 03/20/25 H istory Allergy/AdvReac Type Severity Reaction Status Date / Time acetaminophen (From [place]) Allergy Mild itching Verified 03/20/25 11:18 hydrocodone (From [place]) Allergy Mild itching Verified 03/20/25 11:18 Surgical History History of appendectomy History of tonsillectomy and adenoidectomy Social History household members: children Smoking Status: Current every day smoker tobacco type: cigarettes substance use type: methamphetamine EXAM Physical Exam Const Vital Signs: 03/20/25 11:15 Temperature 98.3 F Temperature Source Oral Pulse Rate 92 Respiratory Rate 16 Blood Pressure 128/92 H Blood Pressure Mean 104 Pulse Ox 95 Oxygen Delivery Method Room Air [facility] MDM Narrative Medical decision making narrative: HISTORY OF PRESENT ILLNESS: Chief complaint: Seizure 29-year-old female history of seizure disorder on Depakote and zonisamide presents with concern for seizures. No changes usual last night 1 this morning. Notes for return to baseline in between seizures. Notes she missed a dose of both her seizure medicines yesterday. Otherwise notes compliance with antiseizure regiment. States she has not seen her neurologist secondary to her recently being incarcerated. Denies fever or neck stiffness. Denies any trauma associated with seizures. Denies recent vomiting or diarrhea. REVIEW OF SYSTEMS: Pertinent positives: Seizure Pertinent negatives: As per HPI PHYSICAL EXAM: Nursing triage notes reviewed, Vital signs reviewed Constitutional: please see mdm HENT: MMM Eyes: Pupils equal round and reactive to light, Extraocular muscles intact Neck: No stridor, no JVD, full neck ROM Lungs: Clear to auscultation, No wheezing or rales. No increased work of breathing, no conversational dyspnea, no accessory muscle use, no nasal flaring. No respiratory distress noted Heart: Regular rate and rhythm, No murmurs, No rubs and No gallops, 2+ distal pulses (radial, femoral, posterior tibial) in all extremities Abdomen: Soft, there is no tenderness, rigidity, rebound or guarding, no obvious peritoneal signs, no palpable pulsatile abdominal masses, no auscultated abdominal bruit : No CVAT Extremities: No edema Neuro: No new focal neurological deficits, cranial nerves II through XII intact, 5/5 strength in all present extremities. Intact sensation to light touch in all present extremities, 2+ reflexes bilateral patella tendons. Skin: No rash or lesions noted MEDICAL DECISION MAKING: Chief Complaint: please see HPI External records reviewed: Reviewed [facility]. No recent [place] imaging of the brain noted in [facility]. Reviewed CT scan of the brain from 2019 which showed no evidence of acute intracranial hemorrhage Factors affecting care: As per HPI Social determinants of health: denies drugs History obtained from others: EMS Consults: none [facility] Narrative: The patient was initially hemodynamically stable, afebrile and nontoxic- appearing. Neurologic exam nonfocal, intact. No sign of trauma I considered the following differential diagnosis: Breakthrough seizure, electrolyte disturbance, hypoglycemia, ICH, infectious etiology lowering seizure threshold, medication noncompliance I obtained a broad lab and imaging work to further determine if the patient was suffering from a life-threatening etiology. Initially treat the patient with IV Depakote and IV Ativan to prevent acute seizure and to ALL IMAGES (IF OBTAINED) HAVE BEEN PERSONALLY REVIEWED AND INTERPRETED BY MYSELF. [] The patient and/or family, caregivers express understanding. The patient and/or family, caregivers agrees with the plan. Shared decision making: I will have a discussion with the patient and or visitors regarding risk/b enefits of further testing or admission. They will be made aware of of the risk/benefits inherent in this decision they will be given the opportunity to voice understanding. Total critical care time today provided was at least 0 [] minutes. This excludes separately billable procedures. Critical care time (if documented) is secondary to the patient having high probability of clinically significant/life threatening deterioration in the patient's condition which required my urgent intervention. Impression: 1. [] 2. [] [] Dispo: [] This note was generated with [employer] dictation software. It may contain incorrect words, spelling, and punctuation that were not noted in review of the chart prior to signing. Discharge Plan Triage Chief Complaint: Seizure ED Provider: Ed Olmstead Dx/Rx/DC Orders Prescriptions: No Action zonisamide 100 MG capsule 100 mg PO DAILY fluoxetine [Prozac] PO DAILY divalproex [Depakote] 250 mg tablet,delayed release (DR/EC) 750 mg PO .QAM divalproex [Depakote] 250 mg tablet,delayed release (DR/EC) 1,000 mg PO QHS Primary Care Provider: Antonio Colindres Referrals: Antonio Colindres MD [Primary Care Provider, Family Practice] Print Language: Kinyarwanda
--- NOTE | 2025-03-20 11:22 | EX.ED.DYSGE1 ---
HPI History of Present Illness Chief Complaint: Seizure [facility] Medical History Smoker Seizure disorder Home Medications ?Medication ?Instructions ?Recorded ?Last Taken ?Type zonisamide 100 mg capsule 100 mg PO DAILY 10/11/18 Unknown History divalproex 250 mg tablet,delayed 1,000 mg PO QHS 03/20/25 03/19/25 History release (Depakote) divalproex 250 mg tablet,delayed 750 mg PO .QAM 03/20/25 03/20/25 History release (Depakote) fluoxetine PO DAILY 03/20/25 03/20/25 History Allergy/AdvReac Type Severity Reaction Status Date / Time acetaminophen (From [place]) Allergy Mild itching Verified 03/20/25 11:18 hydrocodone (From [place]) Allergy Mild itching Verified 03/20/25 11:18 Surgical History History of appendectomy History of tonsillectomy and adenoidectomy Social History household members: children Smoking Status: Current every day smoker tobacco type: cigarettes substance use type: methamphetamine EXAM Physical Exam Const Vital Signs: 03/20/25 11:15 03/20/25 12:15 03/20/25 13:00 Temperature 98.3 F 97.8 F Temperature Source Oral Oral Pulse Rate 92 81 80 Respiratory Rate 16 15 14 Blood Pressure 128/92 H 126/90 H 116/82 H Blood Pressure Mean 104 102 93 Pulse Ox 95 98 98 Oxygen Delivery Method Room Air Room Air Room Air 03/20/25 13:13 Temperature 97.8 F Temperature Source Pulse Rate 78 Respiratory Rate 15 Blood Pressure 123/85 H Blood Pressure Mean 97 Pulse Ox 98 Oxygen Delivery Method MDM MDM MDM Narrative Medical decision making narrative: HISTORY OF PRESENT ILLNESS: Chief complaint: Seizure 29-year-old female history of seizure disorder on Depakote and zonisamide presents with concern for seizures. No changes usual last night 1 this morning. Notes for return to baseline in between seizures. Notes she missed a dose of both her seizure medicines yesterday. Otherwise notes compliance with antiseizure regiment. States she has not seen her neurologist secondary to her recently being incarcerated. Denies fever or neck stiffness. Denies any trauma associated with seizures. Denies recent vomiting or diarrhea. REVIEW OF SYSTEMS: Pertinent positives: Seizure Pertinent negatives: As per HPI PHYSICAL EXAM: Nursing triage notes reviewed, Vital signs reviewed Constitutional: please see [facility] HENT: MMM Eyes: Pupils equal round and reactive to light, Extraocular muscles intact Neck: No stridor, no JVD, full neck ROM Lungs: Clear to auscultation, No wheezing or rales. No increased work of breathing, no conversational dyspnea, no accessory muscle use, no nasal flaring. No respiratory distress noted Heart: Regular rate and rhythm, No murmurs, No rubs and No gallops, 2+ distal pulses (radial, femoral, posterior tibial) in all extremities Abdomen: Soft, there is no tenderness, rigidity, rebound or guarding, no obvious peritoneal signs, no palpable pulsatile abdominal masses, no auscultated abdominal bruit : No CVAT Extremities: No edema Neuro: No new focal neurological deficits, cranial nerves II through XII intact, 5/5 strength in all present extremities. Intact sensation to light touch in all present extremities, 2+ reflexes bilateral patella tendons. Skin: No rash or lesions noted MEDICAL DECISION MAKING: Chief Complaint: please see [facility] External records reviewed: Reviewed [facility]. No recent [place] imaging of the brain noted in [facility]. Reviewed CT scan of the brain from 2019 which showed no evidence of acute intracranial hemorrhage Factors affecting care: As per [facility] Social determinants of health: denies drugs History obtained from others: EMS Consults: none [facility] Narrative: The patient was initially hemodynamically stable, afebrile and nontoxic-appearing. Neurologic exam nonfocal, intact. No sign of trauma I considered the following differential diagnosis: Breakthrough seizure, electrolyte disturbance, hypoglycemia, ICH, infectious etiology lowering seizure threshold, medication noncompliance I obtained a broad lab and imaging work to further determine if the patient was suffering from a life-threatening etiology. Initially treat the patient with IV Depakote and IV Ativan to prevent acute seizure and to ALL IMAGES (IF OBTAINED) HAVE BEEN PERSONALLY REVIEWED AND INTERPRETED BY MYSELF. CBC with no leukocytosis, noted mild anemia but no thrombocytopenia CMP without evidence of acute kidney injury, significant electrolyte abnormality, anion gap to suggest end organ hypo-perfusion, no evidence of metabolic acidosis with a normal bicarbonate, no evidence of hepatobiliary obstructive pathology. Urine test is negative Valproic acid level subtherapeutic indicative of medication noncompliance CT scan of the brain showed no evidence of ICH The synthesis of the patient's history, physical exam, labs images suggest med noncompliance as the cause of breakthrough seizure. No clear life or limb threatening precipitating factor including intracranial injury, significant electrolyte abnormality, hypoglycemia or a could be identified. Patient noted she has adequate supplies of oral seizure medicine at home. Patient was given IV valproic acid and Ativan here. No seizure activity reported here. Encouraged to continue to take home antiseizure medications. Strict return precaution were discussed. Prompt neurology evaluation/follow-up was discussed as well. The patient and/or family, caregivers express understanding. The patient and/or family, caregivers agrees with the plan. Shared decision making: I will have a discussion with the patient and or visitors regarding risk/benefits of further testing or admission. They will be made aware of of the risk/benefits inherent in this decision they will be given the opportunity to voice understanding. Total critical care time today provided was at least 0 minutes. This excludes separately billable procedures. Critical care time (if documented) is secondary to the patient having high probability of clinically significant/life threatening deterioration in the patient's condition which required my urgent intervention. Impression: 1. Breakthrough seizure 2. Medication noncompliance 3. History of seizure disorder Dispo: Discharge home This note was generated with [employer] dictation software. It may contain incorrect words, spelling, and punctuation that were not noted in review of the chart prior to signing. Lab Data Labs: Laboratory Results - last 24 hr 03/20/25 03/20/25 11:30 12:20 WBC 8.6 RBC 3.26 L Hgb 10.8 L Hct 31.1 L MCV 95.4 MCH 33.1 H MCHC 34.7 RDW Std Deviation 45.9 H RDW Coeff of [place] 13.2 Plt Count 176 MPV 11.5 Immature Gran % (Auto) 0.600 Neut % (Auto) 63.7 Lymph % (Auto) 23.9 [place] % (Auto) 7.6 Eos % (Auto) 3.7 Baso % (Auto) 0.5 Absolute Neuts (auto) 5.5 Absolute Lymphs (auto) 2.05 Nucleated RBC % 0 Sodium 140 Potassium 3.4 Chloride 106 Carbon Dioxide 24.1 Anion Gap 10 BUN 9 Creatinine 0.38 L Estim Creat Clear Calc 285.20 H Est GFR (MDRD) Non-Af 138 BUN/Creatinine Ratio 23.0 H Glucose 107 H Calcium 8.1 Total Bilirubin 0.35 AST 20 ALT 26 Alkaline Phosphatase 45 Total Protein 6.0 Albumin 3.6 Globulin 2.3 Albumin/Globulin Ratio 1.6 Urine Test Negative Valproic Acid 29 L Radiography Diagnostic Testing: Clinical Impression(s) from Imaging Studies Brain CT 03/20/25 12:25 IMPRESSION: No acute intracranial pathology. Reading Location: [facility] Discharge Plan Triage Chief Complaint: Seizure ED Provider: Ed Olmstead Dx/Rx/DC Orders Prescriptions: No Action zonisamide 100 MG capsule 100 mg PO DAILY fluoxetine [Prozac] PO DAILY divalproex [Depakote] 250 mg tablet,delayed release (DR/EC) 750 mg PO .QAM divalproex [Depakote] 250 mg tablet,delayed release (DR/EC) 1,000 mg PO QHS Primary Care Provider: Antonio Colindres Referrals: Antonio Colindres MD [Primary Care Provider, Family Practice] Hector Feng MD [Non-Staff, Neurology] Activity Restrictions/Additional Instructions: Thank you for trusting us with your care today! Your labs and images are reassuring. There is no sign of brain damage or significant precipitating factors in terms of your blood work. I suspect you had a breakthrough seizure secondary to medication noncompliance. Please take medications as prescribed daily. Please return to the emergency department if your symptoms change or worsen. Please follow with Neurology for further outpatient evaluation and management. Print Language: Macedonian Disposition Disposition: Home, Self Care
[2025-03-20 11:57] LABS: Hematocrit 31.1 % (37-47); Hemoglobin 10.8 g/dL (12.0-15.0); Immature Granulocytes Count 0.050 X10^3/uL (0.0-0.0); Mean Corp Hgb Conc 34.7 g/dL (32-36); Mean Corpuscular Volume 95.4 fL (81-99); Mean Platelet Vol. 11.5 fl (6.2-12.0); NRBC Flagged by Analyzer 0 % (0-5); Platelet Count 176 K/mm3 (150-450); RBC Distribution Width CV 13.2 % (11.6-14.6); RBC Distribution Width SD 45.9 fl (35.1-43.9); Red Blood Count 3.26 M/mm3 (4.2-5.4); White Blood Count 8.6 K/mm3 (4.4-11.0)
[2025-03-20] MEDS: Valproate Sodium 1,000 MG in Dextrose 5%-Water (50mL Bag) 50 ML 50 MG IV (12:06)
[2025-03-20] MEDS: 0.9% Normal Saline (1000mL) 1,000 ML 1000 ML IV (12:10)
[2025-03-20 12:15] VITALS: BP 126/90; PULSE 81; RESP 15; TEMP 36.6; O2SAT 98
--- NOTE | 2025-03-20 12:25 | CT_ITS ---
EXAM: NONCONTRAST CT SCAN OF THE HEAD CLINICAL HISTORY: Seizures COMPARISON: October 30, 2018 TECHNIQUE: Serial axial series through the head were obtained without contrast. 2-D coronal and sagittal reformats were then obtained. FINDINGS: Brain: There is no acute large territorial infarct, intracranial hemorrhage, midline shift or mass effect. The sella and pineal gland regions appear unremarkable. There is no evidence of cerebellar tonsillar herniation. Ventricles: There is no acute hydrocephalus. Basilar cisterns are patent. Paranasal sinuses: Well-aerated Mastoid air cells: Well-aerated. Calvarium: The bony calvarium is intact. Orbits: The bilateral globes are symmetric, without retrobulbar compressive mass lesion or hemorrhage. CT/Brain/Head without Contrast IMPRESSION: No acute intracranial pathology. Reading Location: [facility]
[2025-03-20 12:33] LABS: Valproic Acid (Depakene) Level 29 ug/mL (50-100)
[2025-03-20 12:34] LABS: AST(SGOT) 20 U/L (<=31); Alanine Aminotransfer ALT/SGPT 26 U/L (<=34); Albumin, Serum 3.6 g/dL (3.5-5.0); Alkaline Phosphatase 45 U/L (35-104); Anion Gap 10 (5-15); BUN 9 mg/dL (4-19); BUN/Creat Ratio 23.0 RATIO (10-20); Calcium,Total 8.1 mg/dL (7.6-11.0); Carbon Dioxide 24.1 mmol/L (21.0-32.0); Chloride 106 mmol/L (98-108); Estimated Creatinine Clearance 285.20 ml/min (50-250); Globulin 2.3 g/dL (2.2-4.2); Glucose 107 mg/dL (70-99); Potassium 3.4 mmol/L (3.3-5.1)
[2025-03-20 12:48] LABS: Internal QC Validated? YES +Cl - CLEAR BKGD; Pregnancy, Urine Negative Negative; Record Kit Lot#,Urine Preg 0000980607
[2025-03-20 13:00] VITALS: BP 116/82; PULSE 80; RESP 14; O2SAT 98
[2025-03-20 13:13] VITALS: BP 123/85; PULSE 78; RESP 15; TEMP 36.6; O2SAT 98
[2025-03-20 14:00] VITALS: PULSE 89; RESP 18; O2SAT 95
[2025-03-20 15:00] VITALS: BP 132/89; PULSE 86; RESP 15; O2SAT 99
== END 2025-03-20 15:35 | disposition home or self-care (01) ==
PROVIDERS: Emergency Provider Emergency Medicine; PCP Family Medicine; Visit Provider Emergency Medicine
DX: G40.909 Epilepsy, unspecified, not intractable, without status epilepticus (principal); F17.210 Nicotine dependence, cigarettes, uncomplicated; T42.6X6A Underdosing of other antiepileptic and sedative-hypnotic drugs, initial encounter; Z91.148 Patient's other noncompliance with medication regimen for other reason; Z79.899 Other long term (current) drug therapy
CPT/HCPCS: 70450; 80053; 80164; 81025; 85025; 96365; 96375; 99285; A4216

== ENCOUNTER 2025-04-22 10:09 | Emergency (ER) | payer MEDICAID, SELFPAY ==
[2025-04-22 10:10] VITALS: BP 146/80; PULSE 89; RESP 16; TEMP 36.6; O2SAT 100; BMI 34.4
--- NOTE | 2025-04-22 11:10 | RAD_ITS ---
PROCEDURE: RAD/Hand Min 3 Views
--- NOTE | 2025-04-22 11:24 | EX.ED.UPPERE ---
HPI History of Present Illness Chief Complaint: Wound Check Informant: patient Narrative Narrative: Patient is a [id number] 29-year-old female who is 5 days status post ORIF to the left second metacarpal performed by Dr. Hendrix in [place]. She is presenting today for worsening pain and swelling. She notes that she has removed her splint as a got dirty at work (she works at [employer]). She states went back to work that day. States she is right out of her pain medication that was prescribed postoperatively. She she is not taking anything else because it does not help. She states the pain and swelling is increased in her left hand over her surgical site is no shooting pain up her arm. Denies any redness or skin changes over it. She denies any new injuries. No other complaints or concerns reported at this time. No she had called work today because of her hand. Review of her OARRS report shows that patient was prescribed oxycodone/acetaminophen 5/325 for a 5-day course on 04/17/2025. PFSH PFS Medical History Smoker Seizure disorder Home Medications ?Medication ?Instructions ?Recorded ?Last Taken ?Type zonisamide 100 mg capsule 100 mg PO DAILY 10/11/18 Unknown History divalproex 250 mg tablet,delayed 1,000 mg PO QHS 03/20/25 03/19/25 History release (Depakote) divalproex 250 mg tablet,delayed 750 mg PO .QAM 03/20/25 03/20/25 History release (Depakote) fluoxetine PO DAILY 03/20/25 03/20/25 History oxycodone 5 mg tablet 5 mg PO Q8H PRN pain 3 days #10 04/22/25 Unknown Rx tabs Allergy/AdvReac Type Severity Reaction Status Date / Time hydrocodone (From [place]) Allergy Mild itching Verified 04/22/25 10:12 Surgical History History of appendectomy History of tonsillectomy and adenoidectomy Social History household members: children Smoking Status: Current every day smoker tobacco type: cigarettes substance use type: methamphetamine ROS ROS ED Constitutional Constitutional ED: Denies chills or fever(s) Musculoskeletal Musculoskeletal: Reports other Details: Left hand pain and swelling Integumentary Reports other Details: surgical incision of her left hand Neurologic Neurologic: Denies paresthesias or weakness EXAM Physical Exam Const Vital Signs: 04/22/25 10:10 Temperature 97.8 F Temperature Source Oral Pulse Rate 89 Respiratory Rate 16 Blood Pressure 146/80 H Blood Pressure Mean 102 Pulse Ox 100 Oxygen Delivery Method Room Air Positive well nourished and well developed General Appearance ED: well developed and NAD Chest Wall inspection of chest normal Resp normal respiratory effort and clear to auscultation bilaterally Cardio regular rate and regular rhythm Cardio Narrative: 2+ radial pulses Extremity Extremity Narrative: Soft tissue swelling centered around the left dorsum of the hand at her surgical site. No obvious deformity present. Tenderness at the surgical site to be expected. Slightly decreased range of motion of the fingers but seem to be more limited by pain and swelling. Normal flexion extension otherwise. Mild tenderness of the wrist however patient states she also broke her wrist but was not operative candidate because she took too long to come in to see orthopedics. Neuro oriented x3 Sensorium / Orientation: alert Motor Exam: muscle tone normal throughout Skin Skin Narrative: Surgical incision of the dorsum of the left hand over the second metacarpal. Overlying Dermabond in place. No associated drainage or cellulitic changes present. No associated lymphangitic streaking. No crepitus appreciated. MDM MDM MDM Narrative Medical decision making narrative: Patient evaluated for increased pain and swelling postoperative to her left hand. Patient is been noncompliant with her splint. Suspect this is causing increased pain. Will obtain an x-ray to ensure stability postoperatively. She does not have physical exam findings consistent with acute infection. OARRS report shows that she should be running out of her Percocet today. Will be given an additional short supply of this for pain control. Will be resplinted with a volar splint. Will follow-up with orthopedics as scheduled. Procedures Upper Extremity Splints Upper Extremity Splint: Orthoglass and Volar Splint Fabrication: Fabricated Location: Left Discharge Plan Triage Chief Complaint: Wound Check ED Provider: Christi Garnica Dx/Rx/DC Orders Clinical Impression: Post-operative pain, Encounter for post surgical wound check, Left hand pain Instructions: ED Wound Care After Surgery- Pain, ED Splints and Casts Prescriptions: New oxycodone 5 mg tablet 5 mg PO Q8H PRN (Reason: pain) 3 Days Qty: 10 0RF No Action zonisamide 100 MG capsule 100 mg PO DAILY fluoxetine [Prozac] PO DAILY divalproex [Depakote] 250 mg tablet,delayed release (DR/EC) 750 mg PO .QAM divalproex [Depakote] 250 mg tablet,delayed release (DR/EC) 1,000 mg PO QHS Stand Alone Forms: Work Status Form Primary Care Provider: Care Physician,No Primary Referrals: Jyoti Hendrix, [Non-Staff, Orthopedics] Care Physician,No Primary [Primary Care Provider, Medical] Activity Restrictions/Additional Instructions: Your x-ray shows appropriate position of the screws in your hand and good alignment of the bones. Please wear splint at all times. You been given a short course of further pain medication. Please follow-up with your orthopedist. Try to elevate the hand is much as possible when you are resting and ice through the splint to help with the swelling. Print Language: Tongan Disposition Disposition: Home, Self Care Discharge Date/Time: 04/22/25 12:19
[2025-04-22 12:18] VITALS: BP 129/76; PULSE 64; RESP 18; TEMP 36.6; O2SAT 99
== END 2025-04-22 12:19 | disposition home or self-care (01) ==
PROVIDERS: Emergency Provider Emergency Medicine; Visit Provider Emergency Medicine
DX: Z48.01 Encounter for change or removal of surgical wound dressing (principal); M79.642 Pain in left hand; G89.18 Other acute postprocedural pain; F17.210 Nicotine dependence, cigarettes, uncomplicated; Z91.198 Patient's noncompliance with other medical treatment and regimen for other reason
CPT/HCPCS: 29125; 29130; 73130; 99282